=== PATIENT | male | born 1955 | race Caucasian/White ===

== ENCOUNTER 2018-07-29 06:05 | Inpatient (IN) | payer OTHER ==
[~2018-07-29 06:05] MED LIST: Acetaminophen 325 MG Tab PO SCH; Lactated Ringers 1,000 ML IV SCH; Lidocaine 1%/Sod Bicarbonate in NS 8.4% 1 ML Syringe IDERM PRN; Pregabalin 25 MG Cap PO SCH; Sodium Chloride 0.9% 10 ML Syringe FLUSH PRN; oxyCODONE ER 10 MG TAB.ER PO SCH
[2018-07-29] MEDS ORDERED: Ondansetron 4 MG/2 ML SDV IVPUSH PRN ×2 (06:23→08:21)
[2018-07-29] MEDS ORDERED: Morphine 2 MG/ML Syringe IVPUSH PRN (06:23)
[2018-07-29] MEDS ORDERED: Ketorolac 15 MG/ML SDV IVPUSH PRN (06:23)
[2018-07-29] MEDS ORDERED: Bisacodyl 5 MG Tab PO PRN (06:23)
[2018-07-29] MEDS ORDERED: Cyclobenzaprine 10 MG Tab PO PRN (06:23)
[2018-07-29] MEDS ORDERED: Naloxone 0.4 MG/ML SDV IVPUSH PRN (06:23)
[2018-07-29] MEDS ORDERED: Acetaminophen/oxyCODONE 325-5 MG Tab PO PRN (06:23)
[2018-07-29] MEDS ORDERED: Sennosides 8.6 MG Tab PO PRN (06:23)
[2018-07-29] MEDS ORDERED: Magnesium Hydroxide 400 MG/5 ML Susp 30 ML Cup PO PRN (06:23)
[2018-07-29] MEDS ORDERED: Bupivacaine 0.25% 30 ML SDV ONE (06:39)
[2018-07-29] MEDS ORDERED: ceFAZolin 1 GM Vial ONE ×2 (06:39→07:57)
[2018-07-29] MEDS ORDERED: Iodine/Sodium Iodide 2% Tincture 30 ML Bottle ONE (06:39)
[2018-07-29] MEDS ORDERED: Vancomycin 1 GM SDV ONE (06:39)
[2018-07-29] MEDS ORDERED: Propofol 200 MG/20 ML SDV ONE ×2 (06:47→08:38)
[2018-07-29] MEDS ORDERED: fentaNYL 100 MCG/2 ML SDV ONE (06:48)
[2018-07-29] MEDS ORDERED: Midazolam 1 MG/ML 2 ML SDV ONE (06:48)
[2018-07-29] MEDS ORDERED: Ketamine 500 mg/10 ML MDV ONE (06:48)
[2018-07-29] MEDS ORDERED: Morphine PF 10 MG/10 ML SDV ONE (06:50)
[2018-07-29] MEDS ORDERED: Bupivacaine 0.75% 30 ML SDV ONE (06:51)
--- NOTE | 2018-07-29 07:11 | PCM.PREANE ---
Preanesthetic Assessment - Anesthesia/Transfusion/Family Hx Anesthesia History: Prior Anesthesia Without Reaction Family History of Anesthesia Reaction: No Transfusion History: No Prior Transfusion(s) Type of Transfusion Reactions: Reports: Unknown Intubation History: Unknown - Review of Systems General: No Symptoms Pulmonary: No Symptoms, Other (Smoker 1 ppd) Cardiovascular: No Symptoms, Other (Hypertension) Gastrointestinal: No Symptoms Neurological: Difficulty Walking, Gait Disturbance, Other (Related to intense pain from hip. 9/10 rating this morning.) Other: Reports: Thyroid Problems - Physical Assessment NPO Status Date: 07/28/18 NPO Status Time: 22:30 Pulse: 59 O2 Sat by Pulse Oximetry: 96 Respiratory Rate: 16 Blood Pressure: 124/91 Height: 1.68 m Weight: 87 kg ASA Class: 2 Mental Status: Alert & Oriented x3 Airway Class: Mallampati = 2 Dentition: Reports: Normal Dentition Thyro-Mental Finger Breadths: 3 Mouth Opening Finger Breadths: 3 ROM/Head Extension: Full Lungs: Clear to Auscultation, Normal Respiratory Effort Cardiovascular: Regular Rate, Regular Rhythm - Lab Values: Laboratory Last Values MRSA (PCR) Negative 07/07/18 09:32 - Allergies Allergies/Adverse Reactions: Allergies Allergy/AdvReac Type Severity Reaction Status Date / Time No Known Allergies Allergy Verified 04/15/18 07:22 - Acknowledgements Anesthesia Type Planned: Spinal Pt an Appropriate Candidate for the Planned Anesthesia: Yes Alternatives and Risks of Anesthesia Discussed w Pt/Guardian: Yes Pt/Guardian Understands and Agrees with Anesthesia Plan: Yes PreAnesthesia Questionnaire HEENT History: Reports: None Cardiovascular History: Reports: High Cholesterol, Hypertension Other Cardiovascular History: Patient has known sinus arrythmia with PACs Respiratory History: Reports: None Gastrointestinal History: Reports: Diverticulosis Genitourinary History: Reports: None Musculoskeletal History: Reports: Fracture, Osteoarthritis Neurological History: Reports: Other (See Below) Other Neuro History: syncope Psychiatric History: Reports: None Endocrine/Metabolic History: Reports: Hypothyroidism Hematologic History: Reports: None Immunologic History: Reports: None Oncologic (Cancer) History: Reports: Other (See Below) Other Oncologic History: skin cancer of lip Dermatologic History: Reports: Other (See Below) 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 - Past Surgical History Other HEENT Surgeries/Procedures: blepharoplasty, bilat. GI Surgical History: Reports: Appendectomy, Colonoscopy Musculoskeletal Surgical History: Reports: Arthroscopic Procedure Other Musculoskeletal Surgeries/Procedures:: right knee arthroscopy and partial right knee replacement. right rotator cuff repair, left total shoulder, bilateral thumb repair, clavicle fracture. - SUBSTANCE USE Smoking Status *Q: Current Every Day Smoker Tobacco Use Within Last Twelve Months: Cigarettes Days Per Week of Alcohol Use: 2 Recreational Drug Use History: No - HOME MEDS Home Medications: Home Meds Amoxicillin [Amoxil] 500 mg PO ASDIRECTED 10/09/16 [History] Aspirin [Halfprin] 81 mg PO DAILY 10/09/16 [History] Levothyroxine 150 mcg PO ACBREAKFAST 10/09/16 [History] Naproxen Sodium [Aleve] 220 mg PO DAILY 10/09/16 [History] Renovo-3/DHA/Epa/Fish Oil [Renovo-3 Fish Oil 1,000 MG Sfgl] 2,000 mg PO DAILY [History] Pravastatin [Pravachol] 20 mg PO DAILY 10/09/16 [History] Ramipril [Altace] 5 mg PO DAILY 10/09/16 [History] amLODIPine [Norvasc] 5 mg PO DAILY 10/09/16 [History] - CURRENT (IN HOUSE) MEDS Current Meds: Current Medications Acetaminophen (Tylenol) 975 mg PO ONETIME [facility] Last Admin: 07/29/18 06:48 Dose: 975 mg Bisacodyl (Dulcolax) 5 mg PO DAILY PRN PRN Reason: Constipation Morphine Sulfate 8 mg/Epinephrine HCl 0.3 mg/Cefuroxime Sodium 750 mg/Ketorolac Tromethamine 30 mg/Sodium Chloride 27.9 ml 0 mg .XX ONETIME ONE Stop: 07/29/18 07:46 Cyclobenzaprine HCl (Flexeril) 10 mg PO TID PRN PRN Reason: Spasms Docusate Sodium (Colace) 100 mg PO BID [facility] Famotidine (Pepcid) 20 mg PO Q12H [place] Lactated Ringer's (Ringers, Lactated) 1,000 mls @ 125 mls/hr IV ASDIRECTED [facility] Last Admin: 07/29/18 06:30 Dose: 125 mls/hr Cefazolin Sodium/Dextrose 2 gm (/ Premix) 50 mls @ 100 mls/hr IV Q8H [facility] Stop: 07/29/18 22:59 Ketorolac Tromethamine (Toradol) 15 mg IVPUSH Q6H PRN PRN Reason: Pain Lidocaine/Sodium Bicarbonate (Buffered Lidocaine 1% In Ns 8.4%) 0.25 ml IDERM ONETIME PRN PRN Reason: Prior to IV Start Last Admin: 07/29/18 06:29 Dose: 0.25 ml Magnesium Hydroxide (Milk Of Magnesia) 30 ml PO BID PRN PRN Reason: Constipation Morphine Sulfate (Morphine) 2 mg IVPUSH Q2H PRN PRN Reason: Breakthrough Pain Naloxone HCl (Narcan) 0.1 mg IVPUSH Q5M PRN PRN Reason: Oversedation Ondansetron HCl (Zofran) 4 mg IVPUSH Q6H PRN PRN Reason: Nausea/Vomiting Oxycodone HCl (Oxycontin) 10 mg PO ONETIME [facility] Last Admin: 07/29/18 06:48 Dose: 10 mg Oxycodone/Acetaminophen (Percocet 325-5 Mg) 1 - 2 tab PO Q4H PRN PRN Reason: Pain Pregabalin (Lyrica) 50 mg PO ONETIME [facility] Last Admin: 07/29/18 06:48 Dose: 50 mg Rivaroxaban (Xarelto) 10 mg PO DAILY [facility] Senna (Senna) 8.6 mg PO BID PRN PRN Reason: Constipation Sodium Chloride (Saline Flush) 10 ml FLUSH ASDIRECTED PRN PRN Reason: Keep Vein Open Discontinued Medications Bupivacaine HCl (Marcaine 0.25%) Confirm Administered Dose 30 ml .ROUTE .STK- MED ONE Stop: 07/29/18 06:40 Bupivacaine HCl (Sensorcaine-Mpf 0.75%) Confirm Administered Dose 30 ml .ROUTE .STK-MED ONE Stop: 07/29/18 06:52 Cefazolin Sodium (Ancef) Confirm Administered Dose 2 gm .ROUTE .STK-MED ONE Stop: 07/29/18 06:40 Fentanyl (Sublimaze) Confirm Administered Dose 100 mcg .ROUTE .STK-MED ONE Stop: 07/29/18 06:49 Lidocaine HCl (Xylocaine-Mpf 1%) Confirm Administered Dose 5 mls @ as directed .ROUTE .STK-MED ONE Stop: 07/29/18 06:52 Iodine (Iodine 2% Mild Tincture) Confirm Administered Dose 30 ml .ROUTE .STK- MED ONE Stop: 07/29/18 06:40 Ketamine HCl (Ketalar) Confirm Administered Dose 500 mg .ROUTE .STK-MED ONE Stop: 07/29/18 06:49 Midazolam HCl (Versed 1 Mg/Ml) Confirm Administered Dose 2 mg .ROUTE .STK-MED ONE Stop: 07/29/18 06:49 Morphine Sulfate (Duramorph Pf) Confirm Administered Dose 10 mg .ROUTE .STK-MED ONE Stop: 07/29/18 06:51 Propofol (Diprivan 20 Ml) Confirm Administered Dose 600 mg .ROUTE .STK-MED ONE Stop: 07/29/18 06:48 Tranexamic Acid (Cyklokapron) Confirm Administered Dose 1,000 mg .ROUTE .STK- MED ONE Stop: 07/29/18 06:40 Vancomycin HCl (Vancomycin) Confirm Administered Dose 1 gm .ROUTE .STK-MED ONE Stop: 07/29/18 06:40
[2018-07-29] MEDS ORDERED: Morphine 8 MG, EPINEPHrine 0.3 MG, Cefuroxime 750 MG, Ketorolac 30 MG, Sodium Chloride ... ONE ×5 (07:45)
[2018-07-29] MEDS ORDERED: Ondansetron 4 MG/2 ML SDV ONE (07:51)
[2018-07-29] MEDS ORDERED: Metoclopramide 10 MG/2 ML SDV ONE (07:57)
[2018-07-29] MEDS ORDERED: Dexamethasone 4 MG/ML SDV ONE (08:01)
[2018-07-29] MEDS ORDERED: Ketorolac 30 MG/ML SDV ONE (08:11)
[2018-07-29] MEDS ORDERED: Lactated Ringers 2,000 ML ONE (08:11)
[2018-07-29] MEDS ORDERED: Albuterol 0.083% 2.5 MG/3 ML Neb Soln NEB PRN (08:19)
[2018-07-29] MEDS ORDERED: ePHEDrine 50 MG/ML SDV IVPUSH PRN (08:19)
[2018-07-29] MEDS ORDERED: diphenhydrAMINE 50 MG/ML SDV IVPUSH PRN (08:19)
--- NOTE | 2018-07-29 08:26 | PCM.CONS ---
H&P History of Present Illness - General Date of Service: 07/29/18 Admit Problem/Dx: Admission Diagnosis/Problem Admission Diagnosis/Problem Osteoarthritis of hip Source of Information: Patient, Old Records, Provider, RN, RN Notes Reviewed, Other (surgical notes ) - History of Present Illness Initial Comments - Free Text/Narative: Juan Hines is a 62 yo male patient of Dr. Hale who is post-operative day 0 of left ESTEFANIA. Hospital medicine was consulted for post-operative medical care. At this time he is resting comfortably in bed. Pain is controlled. He denies any chest pain, shortness of breath, palpitations, nausea, or vomiting. He carries a history of: HTN, HLD, hypothyroidism, sinus arrhythmia with PACs, diverticulosis, Osteoarthritis. He is a current daily smoker - nicotine patch ordered PRN. He is a full code. His primary care provider is Dr. Huston. Left Hip Pain Score (Numeric/FACES): 9 - Related Data Allergies/Adverse Reactions: Allergies Allergy/AdvReac Type Severity Reaction Status Date / Time No Known Allergies Allergy Verified 04/15/18 07:22 Home Medications: Home Meds Amoxicillin [Amoxil] 500 mg PO ASDIRECTED 10/09/16 [History] Aspirin [Halfprin] 81 mg PO DAILY 10/09/16 [History] Levothyroxine 150 mcg PO ACBREAKFAST 10/09/16 [History] Naproxen Sodium [Aleve] 220 mg PO DAILY 10/09/16 [History] Logan-3/DHA/Epa/Fish Oil [Logan-3 Fish Oil 1,000 MG Sfgl] 2,000 mg PO DAILY [History] Pravastatin [Pravachol] 20 mg PO DAILY 10/09/16 [History] Ramipril [Altace] 5 mg PO DAILY 10/09/16 [History] amLODIPine [Norvasc] 5 mg PO DAILY 10/09/16 [History] Past Medical History HEENT History: Reports: None Cardiovascular History: Reports: High Cholesterol, Hypertension Other Cardiovascular History: Patient has known sinus arrythmia with PACs Respiratory History: Reports: None Gastrointestinal History: Reports: Diverticulosis Genitourinary History: Reports: None Musculoskeletal History: Reports: Fracture, Osteoarthritis Neurological History: Reports: Other (See Below) Other Neuro History: syncope Psychiatric History: Reports: None Endocrine/Metabolic History: Reports: Hypothyroidism Hematologic History: Reports: None Immunologic History: Reports: None Oncologic (Cancer) History: Reports: Other (See Below) Other Oncologic History: skin cancer of lip Dermatologic History: Reports: Other (See Below) 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 - Past Surgical History Other HEENT Surgeries/Procedures: blepharoplasty, bilat. GI Surgical History: Reports: Appendectomy, Colonoscopy Musculoskeletal Surgical History: Reports: Arthroscopic Procedure Other Musculoskeletal Surgeries/Procedures:: right knee arthroscopy and partial right knee replacement. right rotator cuff repair, left total shoulder, bilateral thumb repair, clavicle fracture. Social & Family History - Family History Other GI Family History: Mother had colon cancer Oncologic: Reports: Colon Other Oncologic Family History: Mother had colon cancer - Tobacco Use Smoking Status *Q: Current Every Day Smoker Years of Tobacco use: 40 Packs/Tins Daily: 1 - Caffeine Use Caffeine Use: Reports: Coffee, Soda - Alcohol Use Days Per Week of Alcohol Use: 2 - Recreational Drug Use Recreational Drug Use: No H&P Review of Systems - Review of Systems: Review Of Systems: See Below General: Reports: No Symptoms HEENT: Reports: No Symptoms Pulmonary: Reports: No Symptoms Cardiovascular: Reports: No Symptoms Gastrointestinal: Reports: No Symptoms Genitourinary: Reports: No Symptoms Musculoskeletal: Reports: Leg Pain Skin: Reports: No Symptoms Psychiatric: Reports: No Symptoms Neurological: Reports: No Symptoms Hematologic/Lymphatic: Reports: No Symptoms Immunologic: Reports: No Symptoms Exam - Exam Exam: See Below - Vital Signs Vital Signs: Last Vital Signs Temp 98.2 F 07/29/18 06:10 Pulse 59 L 07/29/18 07:11 Resp 16 07/29/18 07:11 BP 124/91 H 07/29/18 07:11 Pulse Ox 96 07/29/18 07:11 Weight: 192 lb - Exam General: Alert, Oriented, Cooperative. No: Mild Distress HEENT: Conjunctiva Clear, EACs Clear, EOMI, Hearing Intact, Mucosa Moist & [place] , Nares Patent, Posterior Pharynx Clear, PERRLA Neck: Supple, Trachea Midline. No: JVD Lungs: Clear to Auscultation, Normal Respiratory Effort Cardiovascular: Irregular Rhythm (Hx/o sinus arrhythmia with PACs), Bradycardia (Also present on pre-operative) GI/Abdominal Exam: Normal Bowel Sounds, Soft, Non-Tender, No Distention (Male) Exam: Deferred Rectal (Males) Exam: Deferred Back Exam: Normal Inspection, Full Range of Motion Extremities: No Pedal Edema, Normal Capillary Refill, Leg Pain, Limited Range of Motion, Other (HITESH bandage in place on left leg. Bandage is dry and intact. Cooling pack in place ) Peripheral Pulses: 3+: Radial (L), Radial (R), Dorsalis Pedis (L), Dorsalis Pedis (R) Skin: Warm, Dry, Intact Neurological: Cranial Nerves Intact (grossly) Neuro Extensive - Mental Status: Alert, Oriented x3, Normal Mood/Affect, Normal Cognition Psychiatric: Alert, Normal Affect, Normal Mood - Patient Data Lab Results Last 24 hrs: Laboratory Results - last 24 hr 07/29/18 07/29/18 Range/Units 06:30 06:30 APTT 29 (24-31) SECONDS Blood Type O POSITIVE Gel Antibody Screen Negative Consult PN Assessment/Plan POD#: 0 Procedures: Procedures COLONOSCOPY AND BIOPSY (10/10/16) CT HEAD/BRAIN W/O & W/DYE (02/24/14) DXA BONE DENSITY AXIAL (07/09/18) ECG MONIT/REPRT UP TO 48 HRS (02/22/14) MRI LUMBAR SPINE W/O DYE (04/15/18) TISSUE EXAM BY PATHOLOGIST (10/10/16) (1) S/P total hip arthroplasty SNOMED Code(s): 355728260516, 406006042745 Code(s): Z96.649 - PRESENCE OF UNSPECIFIED ARTIFICIAL HIP JOINT Priority: High Current Visit: Yes Qualifiers: Laterality: left Qualified Code(s): Z96.642 - Presence of left artificial hip joint (2) Osteoarthritis SNOMED Code(s): 799732344 Code(s): M19.90 - UNSPECIFIED OSTEOARTHRITIS, UNSPECIFIED SITE Priority: High Current Visit: Yes Qualifiers: Osteoarthritis location: hip Osteoarthritis type: primary Laterality: left Qualified Code(s): M16.12 - Unilateral primary osteoarthritis, left hip (3) HTN (hypertension) SNOMED Code(s): 08213004 Code(s): I10 - ESSENTIAL (PRIMARY) HYPERTENSION Priority: Medium Current Visit: No Qualifiers: Hypertension type: unspecified Qualified Code(s): I10 - Essential (primary ) hypertension (4) HLD (hyperlipidemia) SNOMED Code(s): 85941240 Code(s): E78.5 - HYPERLIPIDEMIA, UNSPECIFIED Priority: Low Current Visit : No Qualifiers: Hyperlipidemia type: unspecified Qualified Code(s): E78.5 - Hyperlipidemia , unspecified (5) Tobacco use disorder SNOMED Code(s): 105996816 Code(s): F17.200 - NICOTINE DEPENDENCE, UNSPECIFIED, UNCOMPLICATED Priority : Medium Current Visit: Yes (6) Hypothyroidism SNOMED Code(s): 64757561 Code(s): E03.9 - HYPOTHYROIDISM, UNSPECIFIED Priority: Medium Current Visit: No Qualifiers: Hypothyroidism type: unspecified Qualified Code(s): E03.9 - Hypothyroidism , unspecified (7) Diverticulosis SNOMED Code(s): 664190859 Code(s): K57.90 - DVRTCLOS OF INTEST, PART UNSP, W/O PERF OR ABSCESS W/O BLEED Priority: Low Current Visit: No Qualifiers: Diverticulosis site: unspecified location Diverticulosis bleeding: diverticulosis without bleeding Qualified Code(s): K57.90 - Diverticulosis of intestine, part unspecified, without perforation or abscess without bleeding Problem List Initiated/Reviewed/Updated: Yes Plan: I/P: Acute: S/P Left total hip arthroplasty - post-operative day 0 -DVT prophylaxis and pain management per primary care team -PT/OT -IS/RT -Monitor oxygen saturation -Titrate oxygen as needed -Vital signs stable -Monitor labs -Pre-operative Hgb was 16.4 -Pre-operative GFR was 86 Osteoarthritis of left knee -Pain management per primary care team Chronic: HTN HLD Hypothyroid Known sinus arrhythmia with PACs - will order telemtry Diverticulosis Tobacco use disorder - nicotine patch PRN Plan: CM for discharge planning GI prophylaxis Home medications as indicated Other orders as listed above Routine AM labs He is a full code. His PCP is Dr. Huston Thank you for allowing us to participate in the care of this patient!! Requesting Provider: Dr. Hale Date Consult Requested: 07/29/18 Reason for Consult: Post-operative medical care Patient History Reviewed: Yes Admission H&P Reviewed: Yes Time Spent (in minutes): 40
[2018-07-29] MEDS ORDERED: Amoxicillin 500 MG Cap PO SCH (09:15)
[2018-07-29] MEDS ORDERED: fentaNYL 100 MCG/2 ML SDV IVPUSH PRN (09:21)
[2018-07-29] MEDS ORDERED: HYDROmorphone 0.5 MG/0.5 ML Syringe IVPUSH PRN (09:21)
--- NOTE | 2018-07-29 09:21 | PCM.POSTAN ---
POST ANESTHESIA ASSESSMENT - MENTAL STATUS Mental Status: Alert, Oriented - VITAL SIGNS Pulse Rate: 86 SaO2: 93 Resp Rate: 9 Blood Pressure: 104/92 Temperature: 36.3 C - RESPIRATORY Respiratory Status: Respiratory Rate WNL, Airway Patent, O2 Saturation Stable, Supplemental Oxygen - CARDIOVASCULAR CV Status: Pulse Rate WNL, Blood Pressure Stable - GASTROINTESTINAL GI Status: No Symptoms - PAIN Pain Score: 0 - POST OP HYDRATION Hydration Status: Adequate & Stable
--- NOTE | 2018-07-29 10:26 | CR ---
Pelvis and left hip: AP view of the pelvis was obtained as well as lateral view of the left hip. Comparison: Prior AP pelvis study of 12/23/12. Left hip prosthesis is seen. Components are aligned. Joint space with right hip is preserved. Sacroiliac joints are normal. No fracture or other abnormality is seen. Incidental vascular calcification is noted. Impression: 1. Satisfactory appearance of recently placed left hip prosthesis. Diagnostic code #2
[2018-07-29] MEDS ORDERED: Nicotine 21 MG/24 Hr Patch TRDERM PRN (11:00)
[2018-07-29] MEDS: ceFAZolin 2 GM in Premix Bag 1 BAG IV SCH (16:30)
[2018-07-29] MEDS: Famotidine 20 MG Tab PO SCH (20:47)
[2018-07-29] MEDS: Docusate Sodium 100 MG Cap PO SCH (20:47)
[2018-07-30] MEDS: ceFAZolin 2 GM in Premix Bag 1 BAG IV SCH ×2 (00:23→08:57)
[2018-07-30 04:53] VITALS: BP 121/81
[2018-07-30] MEDS ORDERED: Levothyroxine 150 MCG Tab PO SCH (06:00)
--- NOTE | 2018-07-30 06:53 | PCM.CONSN ---
- General Info Date of Service: 07/30/18 Admission Dx/Problem (Free Text): Admission Diagnosis/Problem Admission Diagnosis/Problem Osteoarthritis of hip Subjective Update: In to see Juan. He is sitting in the chair. He has no concerns or complaints. No nursing concerns. He reports he slept ok. Functional Status: Reports: Pain Controlled, Tolerating Diet, Ambulating, Urinating, Incentive Spirometry. Denies: New Symptoms - Review of Systems General: Reports: No Symptoms. Denies: Fever, Weakness, Fatigue HEENT: Reports: No Symptoms. Denies: Sore Throat Pulmonary: Reports: No Symptoms. Denies: Shortness of Breath, Cough, Wheezing Cardiovascular: Reports: No Symptoms. Denies: Chest Pain, Palpitations, Lightheadedness Gastrointestinal: Reports: No Symptoms. Denies: Abdominal Pain, Constipation, Diarrhea, Nausea, Vomiting Genitourinary: Reports: No Symptoms Musculoskeletal: Reports: Leg Pain Skin: Reports: No Symptoms Neurological: Reports: No Symptoms. Denies: Confusion Psychiatric: Reports: No Symptoms - Patient Data Vitals - Most Recent: Last Vital Signs Temp 97.2 F 07/30/18 03:40 Pulse 66 07/30/18 03:40 Resp 18 07/30/18 05:00 BP 121/81 07/30/18 03:40 Pulse Ox 94 L 07/30/18 00:01 Weight - Most Recent: 205 lb 4.8 oz I&O - Last 24 Hours: Intake & Output 07/29/18 07/29/18 07/30/18 14:59 22:59 06:59 Intake Total 420 2070 3200 Output Total 075 152 2747 Balance 165 1470 1900 Lab Results Last 24 Hours: Laboratory Results - last 24 hr 07/29/18 07/29/18 Range/Units 06:30 06:30 APTT 29 (24-31) SECONDS Blood Type O POSITIVE Gel Antibody Screen Negative Med Orders - Current: Current Medications Amlodipine Besylate (Norvasc) 5 mg PO DAILY [facility] Aspirin (Halfprin) 81 mg PO DAILY [facility] Bisacodyl (Dulcolax) 5 mg PO DAILY PRN PRN Reason: Constipation Cyclobenzaprine HCl (Flexeril) 10 mg PO TID PRN PRN Reason: Spasms Docusate Sodium (Colace) 100 mg PO BID [facility] Last Admin: 07/29/18 20:47 Dose: 100 mg Famotidine (Pepcid) 20 mg PO Q12H [facility] Last Admin: 07/29/18 20:47 Dose: 20 mg Cefazolin Sodium/Dextrose 2 gm (/ Premix) 50 mls @ 100 mls/hr IV Q8H [facility] Stop: 07/30/18 08:29 Last Admin: 07/30/18 00:23 Dose: 100 mls/hr Ketorolac Tromethamine (Toradol) 15 mg IVPUSH Q6H PRN PRN Reason: Pain Last Admin: 07/29/18 17:39 Dose: 15 mg Levothyroxine Sodium (Levothyroxine) 150 mcg PO ACBREAKFAST [facility] Last Admin: 07/30/18 06:15 Dose: 150 mcg Lisinopril (Prinivil) 10 mg PO DAILY [facility] Magnesium Hydroxide (Milk Of Magnesia) 30 ml PO BID PRN PRN Reason: Constipation Miscellaneous Information (Remove Patch) 0 ea TRDERM Q24H [facility] Morphine Sulfate (Morphine) 2 mg IVPUSH Q2H PRN PRN Reason: Breakthrough Pain Naloxone HCl (Narcan) 0.1 mg IVPUSH Q5M PRN PRN Reason: Oversedation Nicotine (Habitrol) 21 mg TRDERM DAILY PRN PRN Reason: Tobacco use Ondansetron HCl (Zofran) 4 mg IVPUSH Q6H PRN PRN Reason: Nausea/Vomiting Oxycodone/Acetaminophen (Percocet 325-5 Mg) 1 - 2 tab PO Q4H PRN PRN Reason: Pain Last Admin: 07/30/18 06:15 Dose: 1 tab Pregabalin (Lyrica) 50 mg PO ONETIME [facility] Last Admin: 07/29/18 06:48 Dose: 50 mg Rivaroxaban (Xarelto) 10 mg PO DAILY [facility] Senna (Senna) 8.6 mg PO BID PRN PRN Reason: Constipation Simvastatin (Zocor) 10 mg PO DAILY [facility] Sodium Chloride (Saline Flush) 10 ml FLUSH ASDIRECTED PRN PRN Reason: Keep Vein Open Discontinued Medications Acetaminophen (Tylenol) 975 mg PO ONETIME [facility] Last Admin: 07/29/18 06:48 Dose: 975 mg Albuterol (Proventil Neb Soln) 2.5 mg NEB ONETIME PRN PRN Reason: Shortness of Breath Stop: 07/29/18 12:00 Amoxicillin (Amoxil) 500 mg PO ASDIRECTED [facility] Bupivacaine HCl (Marcaine 0.25%) Confirm Administered Dose 30 ml .ROUTE .STK- MED ONE Stop: 07/29/18 06:40 Last Admin: 07/29/18 08:39 Dose: 30 ml Bupivacaine HCl (Sensorcaine-Mpf 0.75%) Confirm Administered Dose 30 ml .ROUTE .STK-MED ONE Stop: 07/29/18 06:52 Cefazolin Sodium (Ancef) Confirm Administered Dose 2 gm .ROUTE .STK-MED ONE Stop: 07/29/18 06:40 Last Admin: 07/29/18 08:38 Dose: 2 gm Cefazolin Sodium (Ancef) Confirm Administered Dose 2 gm .ROUTE .STK-MED ONE Stop: 07/29/18 07:58 Morphine Sulfate 8 mg/Epinephrine HCl 0.3 mg/Cefuroxime Sodium 750 mg/Ketorolac Tromethamine 30 mg/Sodium Chloride 27.9 ml 0 mg .XX ONETIME ONE Stop: 07/29/18 07:46 Last Admin: 07/29/18 08:39 Dose: 788.3 mg Dexamethasone (Dexamethasone) Confirm Administered Dose 8 mg .ROUTE .STK-MED ONE Stop: 07/29/18 08:02 Diphenhydramine HCl (Benadryl) 25 mg IVPUSH Q6H PRN PRN Reason: Pruritis Stop: 07/29/18 12:00 Ephedrine Sulfate (Ephedrine Sulfate) 5 mg IVPUSH ASDIRECTED PRN PRN Reason: Hypotension Stop: 07/29/18 12:00 Fentanyl (Sublimaze) Confirm Administered Dose 100 mcg .ROUTE .STK-MED ONE Stop: 07/29/18 06:49 Fentanyl (Sublimaze) 50 mcg IVPUSH Q5M PRN PRN Reason: Pain Hydromorphone HCl (Dilaudid) 0.5 mg IVPUSH ASDIRECTED PRN PRN Reason: Severe Pain Stop: 07/29/18 12:00 Lactated Ringer's (Ringers, Lactated) 1,000 mls @ 125 mls/hr IV ASDIRECTED [facility] Last Admin: 07/29/18 06:30 Dose: 125 mls/hr Lidocaine HCl (Xylocaine-Mpf 1%) Confirm Administered Dose 5 mls @ as directed .ROUTE .STK-MED ONE Stop: 07/29/18 06:52 Lactated Ringer's (Ringers, Lactated) Confirm Administered Dose 2,000 mls @ as directed .ROUTE .STK-MED ONE Stop: 07/29/18 08:12 Iodine (Iodine 2% Mild Tincture) Confirm Administered Dose 30 ml .ROUTE .STK- MED ONE Stop: 07/29/18 06:40 Last Admin: 07/29/18 08:36 Dose: 18 ml Ketamine HCl (Ketalar) Confirm Administered Dose 500 mg .ROUTE .STK-MED ONE Stop: 07/29/18 06:49 Ketorolac Tromethamine (Toradol) Confirm Administered Dose 30 mg .ROUTE .STK- MED ONE Stop: 07/29/18 08:12 Lidocaine/Sodium Bicarbonate (Buffered Lidocaine 1% In Ns 8.4%) 0.25 ml IDERM ONETIME PRN PRN Reason: Prior to IV Start Last Admin: 07/29/18 06:29 Dose: 0.25 ml Metoclopramide HCl (Reglan) Confirm Administered Dose 10 mg .ROUTE .STK-MED ONE Stop: 07/29/18 07:58 Midazolam HCl (Versed 1 Mg/Ml) Confirm Administered Dose 2 mg .ROUTE .ST-MED ONE Stop: 07/29/18 06:49 Morphine Sulfate (Duramorph Pf) Confirm Administered Dose 10 mg .ROUTE .STK-MED ONE Stop: 07/29/18 06:51 Ondansetron HCl (Zofran) Confirm Administered Dose 4 mg .ROUTE .STK-MED ONE Stop: 07/29/18 07:52 Ondansetron HCl (Zofran) 4 mg IVPUSH ONETIME PRN PRN Reason: Nausea/Vomiting Stop: 07/29/18 12:00 Oxycodone HCl (Oxycontin) 10 mg PO ONETIME [facility] Last Admin: 07/29/18 06:48 Dose: 10 mg Propofol (Diprivan 20 Ml) Confirm Administered Dose 600 mg .ROUTE .STK-MED ONE Stop: 07/29/18 06:48 Propofol (Diprivan 20 Ml) Confirm Administered Dose 200 mg .ROUTE .STK-MED ONE Stop: 07/29/18 08:39 Tranexamic Acid (Cyklokapron) Confirm Administered Dose 1,000 mg .ROUTE .STK- MED ONE Stop: 07/29/18 06:40 Last Admin: 07/29/18 08:41 Dose: 1,000 mg Vancomycin HCl (Vancomycin) Confirm Administered Dose 1 gm .ROUTE .STK-MED ONE Stop: 07/29/18 06:40 Last Admin: 07/29/18 08:41 Dose: 1 gm - Exam Quality Assessment: DVT Prophylaxis General: Alert, Oriented, Cooperative, No Acute Distress HEENT: Pupils Equal, Pupils Reactive, EOMI, Mucous Membr. Moist/[place] Neck: Supple, Trachea Midline, No JVD Lungs: Clear to Auscultation, Normal Respiratory Effort Cardiovascular: Regular Rate, Irregular Rhythm GI/Abdominal Exam: Normal Bowel Sounds, Soft, Non-Tender, No Distention (Male) Exam: Deferred Back Exam: Normal Inspection, Full Range of Motion Extremities: No Pedal Edema, Normal Capillary Refill, Leg Pain, Limited Range of Motion, Other (Bandage in place on left leg. Cooling pack in place ) Peripheral Pulses: 2+: Radial (L), Radial (R), Dorsalis Pedis (L), Dorsalis Pedis (R) Skin: Warm, Dry, Intact Wound/Incisions: Dressing Dry and Intact, No Drainage Neurological: No New Focal Deficit Psy/Mental Status: Alert, Normal Affect, Normal Mood Consult PN Assessment/Plan POD#: 1 Procedures: Procedures COLONOSCOPY AND BIOPSY (10/10/16) CT HEAD/BRAIN W/O & W/DYE (02/24/14) DXA BONE DENSITY AXIAL (07/09/18) ECG MONIT/REPRT UP TO 48 HRS (02/22/14) MRI LUMBAR SPINE W/O DYE (04/15/18) TISSUE EXAM BY PATHOLOGIST (10/10/16) (1) S/P total hip arthroplasty SNOMED Code(s): 950440784779, 627982734919 Code(s): Z96.649 - PRESENCE OF UNSPECIFIED ARTIFICIAL HIP JOINT Priority: High Current Visit: Yes Qualifiers: Laterality: left Qualified Code(s): Z96.642 - Presence of left artificial hip joint (2) Osteoarthritis SNOMED Code(s): 013914440 Code(s): M19.90 - UNSPECIFIED OSTEOARTHRITIS, UNSPECIFIED SITE Priority: High Current Visit: Yes Qualifiers: Osteoarthritis location: hip Osteoarthritis type: primary Laterality: left Qualified Code(s): M16.12 - Unilateral primary osteoarthritis, left hip (3) HTN (hypertension) SNOMED Code(s): 72872380 Code(s): I10 - ESSENTIAL (PRIMARY) HYPERTENSION Priority: Medium Current Visit: No Qualifiers: Hypertension type: unspecified Qualified Code(s): I10 - Essential (primary ) hypertension (4) HLD (hyperlipidemia) SNOMED Code(s): 91590209 Code(s): E78.5 - HYPERLIPIDEMIA, UNSPECIFIED Priority: Low Current Visit : No Qualifiers: Hyperlipidemia type: unspecified Qualified Code(s): E78.5 - Hyperlipidemia , unspecified (5) Tobacco use disorder SNOMED Code(s): 717146886 Code(s): F17.200 - NICOTINE DEPENDENCE, UNSPECIFIED, UNCOMPLICATED Priority : Medium Current Visit: Yes (6) Hypothyroidism SNOMED Code(s): 97532113 Code(s): E03.9 - HYPOTHYROIDISM, UNSPECIFIED Priority: Medium Current Visit: No Qualifiers: Hypothyroidism type: unspecified Qualified Code(s): E03.9 - Hypothyroidism , unspecified (7) Diverticulosis SNOMED Code(s): 205565165 Code(s): K57.90 - DVRTCLOS OF INTEST, PART UNSP, W/O PERF OR ABSCESS W/O BLEED Priority: Low Current Visit: No Qualifiers: Diverticulosis site: unspecified location Diverticulosis bleeding: diverticulosis without bleeding Qualified Code(s): K57.90 - Diverticulosis of intestine, part unspecified, without perforation or abscess without bleeding Problem List Initiated/Reviewed/Updated: Yes My Orders Last 24 Hours: My Active Orders 07/29/18 10:23 Patient Status [ADT] Routine 07/29/18 11:00 Nicotine [Habitrol] 21 mg TRDERM DAILY PRN 07/30/18 11:00 Remove Patch 0 ea TRDERM Q24H Plan: I/P: Acute: S/P Left total hip arthroplasty - post-operative day 1 -DVT prophylaxis and pain management per primary care team -PT/OT -IS/RT -Monitor oxygen saturation -Titrate oxygen as needed -Vital signs stable -Monitor labs -Pre-operative Hgb was 16.4, Now 14.2 -Pre-operative GFR was 86, Now >60 Osteoarthritis of left knee -Pain management per primary care team Chronic: HTN HLD Hypothyroid Known sinus arrhythmia with PACs - will order telemtry Diverticulosis Tobacco use disorder - nicotine patch PRN Plan: CM for discharge planning GI prophylaxis Home medications as indicated Other orders as listed above Routine AM labs He is a full code. His PCP is Dr. Huston From a hospitalist standpoint Juan is doing very well. Pain is controlled. He has been working with therapies and doing well. He did initially have some retention and was straight cath'ed however he has urinated now on his own. He is off oxygen. Labs and vital signs look good. He is cleared for discharge pending primary care team and OT/PT approval. Thank you for allowing us to participate in the care of this patient!!
--- NOTE | 2018-07-30 07:23 | PCM48HPAN ---
Post Anesthesia Note - EVALUATION WITHIN 48HRS OF ANESTHETIC Vital Signs in Normal Range: Yes Patient Participated in Evaluation: Yes Respiratory Function Stable: Yes Airway Patent: Yes Cardiovascular Function Stable: Yes Hydration Status Stable: Yes Pain Control Satisfactory: Yes Nausea and Vomiting Control Satisfactory: Yes Mental Status Recovered: Yes (No complaints- very pleased. only minimal pain today) Pulse Rate: 66 Resp Rate: 18 Temperature: 97.2 F Blood Pressure: 121/81
--- NOTE | 2018-07-30 07:44 | PCM.SURGPN ---
- General Info Date of Service: 07/30/18 POD#: 1 Functional Status: Reports: Pain Controlled, Tolerating Diet, Ambulating, Urinating, Incentive Spirometry, Other (The pt states he is doing very well and has no pain.) - Patient Data Vitals - Most Recent: Last Vital Signs Temp 97.2 F 07/30/18 07:23 Pulse 66 07/30/18 07:23 Resp 18 07/30/18 07:23 BP 121/81 07/30/18 07:23 Pulse Ox 96 07/30/18 06:00 Weight - Most Recent: 205 lb 4.8 oz I&O - Last 24 Hours: Intake & Output 07/29/18 07/30/18 07/30/18 22:59 06:59 14:59 Intake Total 2070 3200 Output Total 600 1300 Balance 1470 1900 Lab Results Last 24 Hrs: Laboratory Results - last 24 hr 07/30/18 07/30/18 Range/Units 06:44 06:44 WBC 11.52 H (4.23-9.07) K/mm3 RBC 4.35 L (4.63-6.08) M/mm3 Hgb 14.2 (13.7-17.5) gm/L Hct 43.4 (40.1-51.0) % MCV 99.8 H (79.0-92.2) fl MCH 32.6 H (25.7-32.2) pg MCHC 32.7 (32.2-35.5) g/dl RDW Std Deviation 52.2 H (35.1-43.9) fL Plt Count 205 (163-337) K/mm3 MPV 9.4 (9.4-12.3) fl Sodium 136 (136-145) mEq/L Potassium 4.1 (3.5-5.1) mEq/L Chloride 101 (98-107) mEq/L Carbon Dioxide 28 (21-32) mEq/L Anion Gap 11.1 (5-15) BUN 17 (7-18) mg/dL Creatinine 1.1 (0.7-1.3) mg/dL Est Cr Clr Drug Dosing 62.83 mL/min Estimated GFR (MDRD) > 60 (>60) mL/min BUN/Creatinine Ratio 15.5 (14-18) Glucose 149 H (80-115) mg/dL Calcium 8.8 (8.5-10.1) mg/dL Total Bilirubin 0.5 (0.2-1.0) mg/dL AST 44 H (15-37) U/L ALT 37 (16-63) U/L Alkaline Phosphatase 76 (46-116) U/L Total Protein 6.8 (6.4-8.2) g/dl Albumin 3.2 L (3.4-5.0) g/dl Globulin 3.6 gm/dL Albumin/Globulin Ratio 0.9 L (1-2) Med Orders - Current: Current Medications Amlodipine Besylate (Norvasc) 5 mg PO DAILY [facility] Aspirin (Halfprin) 81 mg PO DAILY [facility] Bisacodyl (Dulcolax) 5 mg PO DAILY PRN PRN Reason: Constipation Cyclobenzaprine HCl (Flexeril) 10 mg PO TID PRN PRN Reason: Spasms Docusate Sodium (Colace) 100 mg PO BID [facility] Last Admin: 07/29/18 20:47 Dose: 100 mg Famotidine (Pepcid) 20 mg PO Q12H [facility] Last Admin: 07/29/18 20:47 Dose: 20 mg Cefazolin Sodium/Dextrose 2 gm (/ Premix) 50 mls @ 100 mls/hr IV Q8H [facility] Stop: 07/30/18 08:29 Last Admin: 07/30/18 00:23 Dose: 100 mls/hr Ketorolac Tromethamine (Toradol) 15 mg IVPUSH Q6H PRN PRN Reason: Pain Last Admin: 07/29/18 17:39 Dose: 15 mg Levothyroxine Sodium (Levothyroxine) 150 mcg PO ACBREAKFAST [facility] Last Admin: 07/30/18 06:15 Dose: 150 mcg Lisinopril (Prinivil) 10 mg PO DAILY [facility] Magnesium Hydroxide (Milk Of Magnesia) 30 ml PO BID PRN PRN Reason: Constipation Miscellaneous Information (Remove Patch) 0 ea TRDERM Q24H [facility] Morphine Sulfate (Morphine) 2 mg IVPUSH Q2H PRN PRN Reason: Breakthrough Pain Naloxone HCl (Narcan) 0.1 mg IVPUSH Q5M PRN PRN Reason: Oversedation Nicotine (Habitrol) 21 mg TRDERM DAILY PRN PRN Reason: Tobacco use Ondansetron HCl (Zofran) 4 mg IVPUSH Q6H PRN PRN Reason: Nausea/Vomiting Oxycodone/Acetaminophen (Percocet 325-5 Mg) 1 - 2 tab PO Q4H PRN PRN Reason: Pain Last Admin: 07/30/18 06:15 Dose: 1 tab Pregabalin (Lyrica) 50 mg PO ONETIME [facility] Last Admin: 07/29/18 06:48 Dose: 50 mg Rivaroxaban (Xarelto) 10 mg PO DAILY [facility] Senna (Senna) 8.6 mg PO BID PRN PRN Reason: Constipation Simvastatin (Zocor) 10 mg PO DAILY [facility] Sodium Chloride (Saline Flush) 10 ml FLUSH ASDIRECTED PRN PRN Reason: Keep Vein Open Discontinued Medications Acetaminophen (Tylenol) 975 mg PO ONETIME [facility] Last Admin: 07/29/18 06:48 Dose: 975 mg Albuterol (Proventil Neb Soln) 2.5 mg NEB ONETIME PRN PRN Reason: Shortness of Breath Stop: 07/29/18 12:00 Amoxicillin (Amoxil) 500 mg PO ASDIRECTED [facility] Bupivacaine HCl (Marcaine 0.25%) Confirm Administered Dose 30 ml .ROUTE .STK- MED ONE Stop: 07/29/18 06:40 Last Admin: 07/29/18 08:39 Dose: 30 ml Bupivacaine HCl (Sensorcaine-Mpf 0.75%) Confirm Administered Dose 30 ml .ROUTE .STK-MED ONE Stop: 07/29/18 06:52 Cefazolin Sodium (Ancef) Confirm Administered Dose 2 gm .ROUTE .STK-MED ONE Stop: 07/29/18 06:40 Last Admin: 07/29/18 08:38 Dose: 2 gm Cefazolin Sodium (Ancef) Confirm Administered Dose 2 gm .ROUTE .STK-MED ONE Stop: 07/29/18 07:58 Morphine Sulfate 8 mg/Epinephrine HCl 0.3 mg/Cefuroxime Sodium 750 mg/Ketorolac Tromethamine 30 mg/Sodium Chloride 27.9 ml 0 mg .XX ONETIME ONE Stop: 07/29/18 07:46 Last Admin: 07/29/18 08:39 Dose: 788.3 mg Dexamethasone (Dexamethasone) Confirm Administered Dose 8 mg .ROUTE .STK-MED ONE Stop: 07/29/18 08:02 Diphenhydramine HCl (Benadryl) 25 mg IVPUSH Q6H PRN PRN Reason: Pruritis Stop: 07/29/18 12:00 Ephedrine Sulfate (Ephedrine Sulfate) 5 mg IVPUSH ASDIRECTED PRN PRN Reason: Hypotension Stop: 07/29/18 12:00 Fentanyl (Sublimaze) Confirm Administered Dose 100 mcg .ROUTE .STK-MED ONE Stop: 07/29/18 06:49 Fentanyl (Sublimaze) 50 mcg IVPUSH Q5M PRN PRN Reason: Pain Hydromorphone HCl (Dilaudid) 0.5 mg IVPUSH ASDIRECTED PRN PRN Reason: Severe Pain Stop: 07/29/18 12:00 Lactated Ringer's (Ringers, Lactated) 1,000 mls @ 125 mls/hr IV ASDIRECTED [facility] Last Admin: 07/29/18 06:30 Dose: 125 mls/hr Lidocaine HCl (Xylocaine-Mpf 1%) Confirm Administered Dose 5 mls @ as directed .ROUTE .STK-MED ONE Stop: 07/29/18 06:52 Lactated Ringer's (Ringers, Lactated) Confirm Administered Dose 2,000 mls @ as directed .ROUTE .STK-MED ONE Stop: 07/29/18 08:12 Iodine (Iodine 2% Mild Tincture) Confirm Administered Dose 30 ml .ROUTE .STK- MED ONE Stop: 07/29/18 06:40 Last Admin: 07/29/18 08:36 Dose: 18 ml Ketamine HCl (Ketalar) Confirm Administered Dose 500 mg .ROUTE .STK-MED ONE Stop: 07/29/18 06:49 Ketorolac Tromethamine (Toradol) Confirm Administered Dose 30 mg .ROUTE .STK- MED ONE Stop: 07/29/18 08:12 Lidocaine/Sodium Bicarbonate (Buffered Lidocaine 1% In Ns 8.4%) 0.25 ml IDERM ONETIME PRN PRN Reason: Prior to IV Start Last Admin: 07/29/18 06:29 Dose: 0.25 ml Metoclopramide HCl (Reglan) Confirm Administered Dose 10 mg .ROUTE .STK-MED ONE Stop: 07/29/18 07:58 Midazolam HCl (Versed 1 Mg/Ml) Confirm Administered Dose 2 mg .ROUTE .STK-MED ONE Stop: 07/29/18 06:49 Morphine Sulfate (Duramorph Pf) Confirm Administered Dose 10 mg .ROUTE .STK-MED ONE Stop: 07/29/18 06:51 Ondansetron HCl (Zofran) Confirm Administered Dose 4 mg .ROUTE .STK-MED ONE Stop: 07/29/18 07:52 Ondansetron HCl (Zofran) 4 mg IVPUSH ONETIME PRN PRN Reason: Nausea/Vomiting Stop: 07/29/18 12:00 Oxycodone HCl (Oxycontin) 10 mg PO ONETIME [facility] Last Admin: 07/29/18 06:48 Dose: 10 mg Propofol (Diprivan 20 Ml) Confirm Administered Dose 600 mg .ROUTE .STK-MED ONE Stop: 07/29/18 06:48 Propofol (Diprivan 20 Ml) Confirm Administered Dose 200 mg .ROUTE .STK-MED ONE Stop: 07/29/18 08:39 Tranexamic Acid (Cyklokapron) Confirm Administered Dose 1,000 mg .ROUTE .STK- MED ONE Stop: 07/29/18 06:40 Last Admin: 07/29/18 08:41 Dose: 1,000 mg Vancomycin HCl (Vancomycin) Confirm Administered Dose 1 gm .ROUTE .STK-MED ONE Stop: 07/29/18 06:40 Last Admin: 07/29/18 08:41 Dose: 1 gm - Exam Wound/Incisions: Dressing Dry and Intact General: Alert, Cooperative, No Acute Distress Lungs: Normal Respiratory Effort Extremities: Other (NVS intact for BLE. Radha's negative BLE. Left thigh soft and nontender.) - Problem List Review Problem List Initiated/Reviewed/Updated: Yes - My Orders Last 24 Hours: Active Orders 24 hr Category Date Time Status Patient Status [ADT] Routine ADT 07/29/18 10:23 Active Bladder Scan [RC] ASDIRECTED Care 07/29/18 23:15 Active Cooling Warming Measures [RC] ASDIRECTED Care 07/29/18 08:19 Inactive Notify Provider [RC] ASDIRECTED Care 07/29/18 08:19 Active Oxygen Therapy [RC] ASDIRECTED Care 07/29/18 08:18 Inactive Pulse Oximetry [RC] ASDIRECTED Care 07/29/18 08:19 Active RT Aerosol Therapy [RC] ASDIRECTED Care 07/29/18 08:20 Active Ready for Discharge [RC] PER UNIT ROUTINE Care 07/30/18 07:34 Active Urinary Catheter Assessment [RC] .PRN Care 07/29/18 08:15 Active Vital Signs [RC] Q1HR Care 07/29/18 08:18 Active Regular Diet [DIET] Diet 07/29/18 Lunch Active Aspirin [Halfprin] Med 07/30/18 09:00 Active 81 mg PO DAILY Docusate Sodium [Colace] Med 07/29/18 21:00 Active 100 mg PO BID Famotidine [Pepcid] Med 07/29/18 21:00 Active 20 mg PO Q12H Levothyroxine Med 07/30/18 06:00 Active 150 mcg PO ACBREAKFAST Lisinopril [Prinivil] Med 07/30/18 09:00 Active 10 mg PO DAILY Nicotine [Habitrol] Med 07/29/18 11:00 Active 21 mg TRDERM DAILY PRN Remove Patch Med 07/30/18 11:00 Active 0 ea TRDERM Q24H Rivaroxaban [Xarelto] Med 07/30/18 09:00 Active 10 mg PO DAILY Simvastatin [Zocor] Med 07/30/18 09:00 Active 10 mg PO DAILY amLODIPine [Norvasc] Med 07/30/18 09:00 Active 5 mg PO DAILY ceFAZolin [Ancef] 2 gm Med 07/29/18 16:00 Active Premix Bag 1 bag IV Q8H Pulse Oximetry Continuous Monitoring [OM.PC] Routine Oth 07/29/18 08:19 Active Medication Orders Amlodipine Besylate (Norvasc) 5 mg PO DAILY [facility] Aspirin (Halfprin) 81 mg PO DAILY [facility] Bisacodyl (Dulcolax) 5 mg PO DAILY PRN PRN Reason: Constipation Cyclobenzaprine HCl (Flexeril) 10 mg PO TID PRN PRN Reason: Spasms Docusate Sodium (Colace) 100 mg PO BID [facility] Last Admin: 07/29/18 20:47 Dose: 100 mg Famotidine (Pepcid) 20 mg PO Q12H [facility] Last Admin: 07/29/18 20:47 Dose: 20 mg Cefazolin Sodium/Dextrose 2 gm (/ Premix) 50 mls @ 100 mls/hr IV Q8H [facility] Stop: 07/30/18 08:29 Last Admin: 07/30/18 00:23 Dose: 100 mls/hr Infusion: 07/29/18 17:00 Dose: 100 mls/hr Admin: 07/29/18 16:30 Dose: 100 mls/hr Ketorolac Tromethamine (Toradol) 15 mg IVPUSH Q6H PRN PRN Reason: Pain Last Admin: 07/29/18 17:39 Dose: 15 mg Levothyroxine Sodium (Levothyroxine) 150 mcg PO ACBREAKFAST [facility] Last Admin: 07/30/18 06:15 Dose: 150 mcg Lisinopril (Prinivil) 10 mg PO DAILY [facility] Magnesium Hydroxide (Milk Of Magnesia) 30 ml PO BID PRN PRN Reason: Constipation Miscellaneous Information (Remove Patch) 0 ea TRDERM Q24H [facility] Morphine Sulfate (Morphine) 2 mg IVPUSH Q2H PRN PRN Reason: Breakthrough Pain Naloxone HCl (Narcan) 0.1 mg IVPUSH Q5M PRN PRN Reason: Oversedation Nicotine (Habitrol) 21 mg TRDERM DAILY PRN PRN Reason: Tobacco use Ondansetron HCl (Zofran) 4 mg IVPUSH Q6H PRN PRN Reason: Nausea/Vomiting Oxycodone/Acetaminophen (Percocet 325-5 Mg) 1 - 2 tab PO Q4H PRN PRN Reason: Pain Last Admin: 07/30/18 06:15 Dose: 1 tab Pregabalin (Lyrica) 50 mg PO ONETIME [facility] Last Admin: 07/29/18 06:48 Dose: 50 mg Rivaroxaban (Xarelto) 10 mg PO DAILY [facility] Senna (Senna) 8.6 mg PO BID PRN PRN Reason: Constipation Simvastatin (Zocor) 10 mg PO DAILY [facility] Sodium Chloride (Saline Flush) 10 ml FLUSH ASDIRECTED PRN PRN Reason: Keep Vein Open - Assessment Assessment (Free Text/Narrative):: POD#1 - left ESTEFANIA - Plan Plan (Free Text/Narrative):: 1. Discharge to home today if cleared by Hospitalist service and therapies. 2. ESTEFANIA precautions. 3. Xarelto for VTE prophylaxis (family hx VTE). 4. Hgb 14.2. The pt's case was discussed with Dr. Hale.
--- NOTE | 2018-07-30 07:58 | PCM.DCSUM1 ---
Discharge Summary - Hospital Course Brief History: Juan is a 62 yo male who underwent left ESTEFANIA with Dr. Hale on 07-29. The procedure was completed under spinal anesthesia. The pt tolerated the procedure well and was admitted to the Medical-Surgical Unit. Medical management was provided by the Hospitalist service. The pt's Hospital course was uneventful. The pt's Hgb on POD#1 was 14.2. On POD#1, Xarelto 10mg PO daily was initiated for VTE prophylaxis. SCDs and TEDs were also ordered. A Mepilex dressing was placed at the incision site at the time of surgery and remained clean and dry. The pt participated in P.T. and O.T. and progressed well. He followed the ESTEFANIA precautions. The pt was allowed to WBAT. On POD#1, the pt was deemed appropriate to discharge to home. - Discharge Data Discharge Date: 07/30/18 Discharge Disposition: Home, Self-Care 01 Condition: Good - Patient Summary/Data Consults: Consultations 07/29/18 06:23 Consult to Physician [CONS] Routine OT Evaluation and Treatment [CONS] Routine PT Evaluation and Treatment [CONS] Routine - Patient Instructions Diet: Usual Diet as Tolerated Activity: Apply Ice, As Tolerated, Elevate Extremity, Full Weight Bearing Activity, Other: Total hip precautions. Driving: Do Not Drive Showering/Bathing: May Shower Wound/Incision Care: Keep Operative Site/Wound Site Clean and Dry, Do NOT Change Dressing Notify Provider of: Fever, Increased Pain, Swelling and Redness, Drainage, Nausea and/or Vomiting Other/Special Instructions: Please get up and moving around EVERY HOUR while awake. This helps to prevent blood clots. Have help with mobility as needed. Please take the Xarelto blood thinner medication daily - this also helps to prevent blood clots. Please wear the ALBERTO hose during the day and you may remove them at night. Please schedule for P.T. Complete the P.T. exercises and stretches that were instructed in the Hospital. Please use the pain medication as needed. The medication may cause drowsiness and/or constipation. You could use a stool softener like docusate sodium or Colace 100mg twice daily and/or a laxative like Miralax daily for constipation. Contact your primary care provider for further instructions if you are constipated. Try to wean from use of the pain medication as soon as able. Please do not use other medications that may cause drowsiness (other pain medications, anxiety pills, sleeping pills, allergy medications that cause drowsiness) while using the pain medication. Please do not use alcohol while using the pain medication. Use the incentive spirometer often. Please place ice to the hip often. Please elevate the limb to decrease swelling. Follow the total hip arthroplasty precautions. Keep the Mepilex dressing in place until follow-up. Please notify the Clinic if the dressing is saturated or rolls. Increase protein intake in your diet as this helps with healing. If you are a diabetic, please closely monitor your blood sugars and notify your primary care provider of your values. Elevated blood sugars increases the risk of infection. Please call [phone] with questions or concerns. - Discharge Plan *PRESCRIPTION DRUG MONITORING PROGRAM REVIEWED*: No *COPY OF PRESCRIPTION DRUG MONITORING REPORT IN PATIENT BAKARI: No Prescriptions/Med Rec: Acetaminophen/oxyCODONE [Percocet 325-5 MG] 1 - 2 tab PO Q6H PRN #60 tablet PRN Reason: Pain Rivaroxaban [Xarelto] 10 mg PO DAILY #40 tablet Home Medications: Home Meds Amoxicillin [Amoxil] 500 mg PO ASDIRECTED 10/09/16 [History] Aspirin [Halfprin] 81 mg PO DAILY 10/09/16 [History] Levothyroxine 150 mcg PO ACBREAKFAST 10/09/16 [History] Pravastatin [Pravachol] 20 mg PO DAILY 10/09/16 [History] Ramipril [Altace] 5 mg PO DAILY 10/09/16 [History] amLODIPine [Norvasc] 5 mg PO DAILY 10/09/16 [History] Acetaminophen/oxyCODONE [Percocet 325-5 MG] 1 - 2 tab PO Q6H PRN #60 tablet 06/09 [Rx] Bisacodyl [Dulcolax] 5 mg PO DAILY PRN tablet 07/30/18 [Rx] Docusate Sodium [Colace] 100 mg PO BID cap 07/30/18 [Rx] Famotidine [Pepcid] 20 mg PO Q12H tablet 07/30/18 [Rx] Nicotine [Habitrol] 21 mg TRDERM DAILY PRN patch 07/30/18 [Rx] Remove Patch 0 ea TRDERM Q24H each 07/30/18 [Rx] Rivaroxaban [Xarelto] 10 mg PO DAILY #40 tablet 07/30/18 [Rx] Sennosides [Senna] 8.6 mg PO BID PRN tablet 07/30/18 [Rx] Referrals: Ailyn Obrien PA-C [Physician [facility]] - - Patient Data Vitals - Most Recent: Last Vital Signs Temp 97.2 F 07/30/18 07:23 Pulse 66 07/30/18 07:23 Resp 18 07/30/18 07:23 BP 121/81 07/30/18 07:23 Pulse Ox 96 07/30/18 06:00 Weight - Most Recent: 205 lb 4.8 oz I&O - Last 24 hours: Intake & Output 07/29/18 07/30/18 07/30/18 22:59 06:59 14:59 Intake Total 2070 3200 Output Total 600 1300 Balance 1470 1900 Lab Results - Last 24 hrs: Laboratory Results - last 24 hr 07/30/18 07/30/18 Range/Units 06:44 06:44 WBC 11.52 H (4.23-9.07) K/mm3 RBC 4.35 L (4.63-6.08) M/mm3 Hgb 14.2 (13.7-17.5) gm/L Hct 43.4 (40.1-51.0) % MCV 99.8 H (79.0-92.2) fl MCH 32.6 H (25.7-32.2) pg MCHC 32.7 (32.2-35.5) g/dl RDW Std Deviation 52.2 H (35.1-43.9) fL Plt Count 205 (163-337) K/mm3 MPV 9.4 (9.4-12.3) fl Sodium 136 (136-145) mEq/L Potassium 4.1 (3.5-5.1) mEq/L Chloride 101 (98-107) mEq/L Carbon Dioxide 28 (21-32) mEq/L Anion Gap 11.1 (5-15) BUN 17 (7-18) mg/dL Creatinine 1.1 (0.7-1.3) mg/dL Est Cr Clr Drug Dosing 62.83 mL/min Estimated GFR (MDRD) > 60 (>60) mL/min BUN/Creatinine Ratio 15.5 (14-18) Glucose 149 H (80-115) mg/dL Calcium 8.8 (8.5-10.1) mg/dL Total Bilirubin 0.5 (0.2-1.0) mg/dL AST 44 H (15-37) U/L ALT 37 (16-63) U/L Alkaline Phosphatase 76 (46-116) U/L Total Protein 6.8 (6.4-8.2) g/dl Albumin 3.2 L (3.4-5.0) g/dl Globulin 3.6 gm/dL Albumin/Globulin Ratio 0.9 L (1-2) Med Orders - Current: Current Medications Amlodipine Besylate (Norvasc) 5 mg PO DAILY [facility] Aspirin (Halfprin) 81 mg PO DAILY [facility] Bisacodyl (Dulcolax) 5 mg PO DAILY PRN PRN Reason: Constipation Cyclobenzaprine HCl (Flexeril) 10 mg PO TID PRN PRN Reason: Spasms Docusate Sodium (Colace) 100 mg PO BID [facility] Last Admin: 07/29/18 20:47 Dose: 100 mg Famotidine (Pepcid) 20 mg PO Q12H [facility] Last Admin: 07/29/18 20:47 Dose: 20 mg Cefazolin Sodium/Dextrose 2 gm (/ Premix) 50 mls @ 100 mls/hr IV Q8H [facility] Stop: 07/30/18 08:29 Last Admin: 07/30/18 00:23 Dose: 100 mls/hr Ketorolac Tromethamine (Toradol) 15 mg IVPUSH Q6H PRN PRN Reason: Pain Last Admin: 07/29/18 17:39 Dose: 15 mg Levothyroxine Sodium (Levothyroxine) 150 mcg PO ACBREAKFAST [facility] Last Admin: 07/30/18 06:15 Dose: 150 mcg Lisinopril (Prinivil) 10 mg PO DAILY [facility] Magnesium Hydroxide (Milk Of Magnesia) 30 ml PO BID PRN PRN Reason: Constipation Miscellaneous Information (Remove Patch) 0 ea TRDERM Q24H [facility] Morphine Sulfate (Morphine) 2 mg IVPUSH Q2H PRN PRN Reason: Breakthrough Pain Naloxone HCl (Narcan) 0.1 mg IVPUSH Q5M PRN PRN Reason: Oversedation Nicotine (Habitrol) 21 mg TRDERM DAILY PRN PRN Reason: Tobacco use Ondansetron HCl (Zofran) 4 mg IVPUSH Q6H PRN PRN Reason: Nausea/Vomiting Oxycodone/Acetaminophen (Percocet 325-5 Mg) 1 - 2 tab PO Q4H PRN PRN Reason: Pain Last Admin: 07/30/18 06:15 Dose: 1 tab Pregabalin (Lyrica) 50 mg PO ONETIME [facility] Last Admin: 07/29/18 06:48 Dose: 50 mg Rivaroxaban (Xarelto) 10 mg PO DAILY [facility] Senna (Senna) 8.6 mg PO BID PRN PRN Reason: Constipation Simvastatin (Zocor) 10 mg PO DAILY [facility] Sodium Chloride (Saline Flush) 10 ml FLUSH ASDIRECTED PRN PRN Reason: Keep Vein Open Discontinued Medications Acetaminophen (Tylenol) 975 mg PO ONETIME [facility] Last Admin: 07/29/18 06:48 Dose: 975 mg Albuterol (Proventil Neb Soln) 2.5 mg NEB ONETIME PRN PRN Reason: Shortness of Breath Stop: 07/29/18 12:00 Amoxicillin (Amoxil) 500 mg PO ASDIRECTED [facility] Bupivacaine HCl (Marcaine 0.25%) Confirm Administered Dose 30 ml .ROUTE .STK- MED ONE Stop: 07/29/18 06:40 Last Admin: 07/29/18 08:39 Dose: 30 ml Bupivacaine HCl (Sensorcaine-Mpf 0.75%) Confirm Administered Dose 30 ml .ROUTE .STK-MED ONE Stop: 07/29/18 06:52 Cefazolin Sodium (Ancef) Confirm Administered Dose 2 gm .ROUTE .STK-MED ONE Stop: 07/29/18 06:40 Last Admin: 07/29/18 08:38 Dose: 2 gm Cefazolin Sodium (Ancef) Confirm Administered Dose 2 gm .ROUTE .STK-MED ONE Stop: 07/29/18 07:58 Morphine Sulfate 8 mg/Epinephrine HCl 0.3 mg/Cefuroxime Sodium 750 mg/Ketorolac Tromethamine 30 mg/Sodium Chloride 27.9 ml 0 mg .XX ONETIME ONE Stop: 07/29/18 07:46 Last Admin: 07/29/18 08:39 Dose: 788.3 mg Dexamethasone (Dexamethasone) Confirm Administered Dose 8 mg .ROUTE .STK-MED ONE Stop: 07/29/18 08:02 Diphenhydramine HCl (Benadryl) 25 mg IVPUSH Q6H PRN PRN Reason: Pruritis Stop: 07/29/18 12:00 Ephedrine Sulfate (Ephedrine Sulfate) 5 mg IVPUSH ASDIRECTED PRN PRN Reason: Hypotension Stop: 07/29/18 12:00 Fentanyl (Sublimaze) Confirm Administered Dose 100 mcg .ROUTE .STK-MED ONE Stop: 07/29/18 06:49 Fentanyl (Sublimaze) 50 mcg IVPUSH Q5M PRN PRN Reason: Pain Hydromorphone HCl (Dilaudid) 0.5 mg IVPUSH ASDIRECTED PRN PRN Reason: Severe Pain Stop: 07/29/18 12:00 Lactated Ringer's (Ringers, Lactated) 1,000 mls @ 125 mls/hr IV ASDIRECTED [facility] Last Admin: 07/29/18 06:30 Dose: 125 mls/hr Lidocaine HCl (Xylocaine-Mpf 1%) Confirm Administered Dose 5 mls @ as directed .ROUTE .STK-MED ONE Stop: 07/29/18 06:52 Lactated Ringer's (Ringers, Lactated) Confirm Administered Dose 2,000 mls @ as directed .ROUTE .STK-MED ONE Stop: 07/29/18 08:12 Iodine (Iodine 2% Mild Tincture) Confirm Administered Dose 30 ml .ROUTE .STK- MED ONE Stop: 07/29/18 06:40 Last Admin: 07/29/18 08:36 Dose: 18 ml Ketamine HCl (Ketalar) Confirm Administered Dose 500 mg .ROUTE .STK-MED ONE Stop: 07/29/18 06:49 Ketorolac Tromethamine (Toradol) Confirm Administered Dose 30 mg .ROUTE .STK- MED ONE Stop: 07/29/18 08:12 Lidocaine/Sodium Bicarbonate (Buffered Lidocaine 1% In Ns 8.4%) 0.25 ml IDERM ONETIME PRN PRN Reason: Prior to IV Start Last Admin: 07/29/18 06:29 Dose: 0.25 ml Metoclopramide HCl (Reglan) Confirm Administered Dose 10 mg .ROUTE .STK-MED ONE Stop: 07/29/18 07:58 Midazolam HCl (Versed 1 Mg/Ml) Confirm Administered Dose 2 mg .ROUTE .STK-MED ONE Stop: 07/29/18 06:49 Morphine Sulfate (Duramorph Pf) Confirm Administered Dose 10 mg .ROUTE .STK-MED ONE Stop: 07/29/18 06:51 Ondansetron HCl (Zofran) Confirm Administered Dose 4 mg .ROUTE .STK-MED ONE Stop: 07/29/18 07:52 Ondansetron HCl (Zofran) 4 mg IVPUSH ONETIME PRN PRN Reason: Nausea/Vomiting Stop: 07/29/18 12:00 Oxycodone HCl (Oxycontin) 10 mg PO ONETIME [facility] Last Admin: 07/29/18 06:48 Dose: 10 mg Propofol (Diprivan 20 Ml) Confirm Administered Dose 600 mg .ROUTE .STK-MED ONE Stop: 07/29/18 06:48 Propofol (Diprivan 20 Ml) Confirm Administered Dose 200 mg .ROUTE .STK-MED ONE Stop: 07/29/18 08:39 Tranexamic Acid (Cyklokapron) Confirm Administered Dose 1,000 mg .ROUTE .STK- MED ONE Stop: 07/29/18 06:40 Last Admin: 07/29/18 08:41 Dose: 1,000 mg Vancomycin HCl (Vancomycin) Confirm Administered Dose 1 gm .ROUTE .STK-MED ONE Stop: 07/29/18 06:40 Last Admin: 07/29/18 08:41 Dose: 1 gm
[2018-07-30] MEDS: Docusate Sodium 100 MG Cap PO SCH (08:59)
[2018-07-30] MEDS ORDERED: Lisinopril 10 MG Tab PO SCH (09:00)
[2018-07-30] MEDS ORDERED: Aspirin 81 MG Tab.EC PO SCH (09:00)
[2018-07-30] MEDS: Famotidine 20 MG Tab PO SCH (09:00)
[2018-07-30] MEDS ORDERED: Simvastatin 10 MG Tab PO SCH (09:00)
[2018-07-30] MEDS ORDERED: amLODIPine 5 MG Tab PO SCH (09:00)
[2018-07-30] MEDS ORDERED: Rivaroxaban 10 MG Tab PO SCH (09:00)
--- NOTE | 2018-08-09 21:32 | PCM.OPNOTE ---
- General Post-Op/Procedure Note Date of Surgery/Procedure: 07/29/18 Operative Procedure(s): left total hip arthroplasty Pre Op Diagnosis: left hip osteoarthrosis Post-Op Diagnosis: Same Anesthesia Technique: Local, MAC, Spinal Primary Surgeon: Carroll Hale Anesthesia Provider: Ledy Camargo Manager Machine: Ailyn Obrien Manager Machine: Alejandra Landry EBL in mLs: 150 Complications: None Condition: Good Free Text/Narrative:: size 54 36+2.5 5
--- NOTE | 2018-08-10 00:41 | OR ---
DATE OF OPERATION: 07/29/2018 SURGEON: Carroll Hale MD OPERATION PERFORMED: Left total hip arthroplasty. PREOPERATIVE DIAGNOSIS: Left hip osteoarthrosis. POSTOPERATIVE DIAGNOSIS: Left hip osteoarthrosis. ANESTHESIA: Local MAC with spinal. ANESTHESIA PROVIDER: Marion Ramirez. ASSISTANTS: 1. Ailyn Obrien PA-C. 2. Alejandra Landry LPN. ESTIMATED BLOOD LOSS: 150 mL. COMPLICATIONS: None. CONDITION: Stable. IMPLANTS: 1. [place]ahoma size 54 solid Tritanium acetabular cup. 2. Jose size 36, +2.5 mm Biolox ceramic head. 3. [place] size 5 Accolade II stem. DESCRIPTION OF PROCEDURE: The patient was identified in the preoperative holding area. Proper site was marked and identified by the surgeon. The patient was taken back to the operating theater where after adequate anesthesia, the patient was placed in the right lateral decubitus position. Axillary roll was placed. All bony prominences well padded. Pegs were then placed and were well padded. The patient's gluteal fold was parallel to the floor. At this time, the left hip was then sterilely prepped and draped in the usual sterile fashion. OR time-out was performed. The patient received 2 g IV Ancef. At this time, a standard incision was made centered over the greater trochanter. This was taken down to the IT band and gluteal fascia, which was incised along the incisional length. Charnley retractor was then placed. Attention was turned to the short external rotators and takedown of the short external rotators was done from the level of the piriformis all the way down to the lesser trochanter. At this time, a capsulotomy was also performed and the hip was dislocated. Neck cut was then completed and attention was turned to the acetabulum. Anterior and posterior acetabular retractors were placed. The remaining labrum as well as pulvinar was then removed. Starting with a 46 reamer, I was able to ream up to a 54 which was found to have good cortical chatter. At this time, a 54 mm solid Tritanium acetabular cup was impacted in place and roughly 45 degrees of abduction and 20 degrees of anteversion, the size E polyethylene elevated liner was then impacted into place. Attention was turned to the femoral side. Femoral elevator was placed and box chisel was used out laterally. Starter awl was placed down the canal. Starting with the 0 broach, I was able to broach up to a size 5 which was found to be rotationally and vertically stable. Trial implants were then trialed starting with 0 neck and then we trialed 2.5, it had adequate presybeterian of leg lengths. At this time, it was stable throughout range of motion. Bone hook was used to dislocate the hip. At this time, a size 5 Accolade II stem was impacted in place along with a 36, +2.5 mm head. Hip was then relocated, #5 Ethibond suture was used for closure of short external rotator and capsule. A 1 L dilute Betadine solution was irrigated through the hip along with 3 L of pulse lavage irrigation with Ancef. Topical tranexamic acid was placed along with vancomycin powder and periarticular injection was done at this time, #2 barbed suture was used for closure of the IT band and gluteal fascia, 2-0 Vicryl was used subcutaneously, and Cranios was used for the skin. The patient was sent to PACU in stable condition. MMODAL /[id number]
== END 2018-07-30 11:44 | disposition home or self-care (01) | DRG 470 ==
LOC: JD.MS 06:05
PROVIDERS: ADMIT Orthopaedic Surgery; ATTEND Orthopaedic Surgery
PROC: 0SRB04Z Replacement of Left Hip Joint with Ceramic on Polyethylene Synthetic Substitute, Open Approach (ICD-10-PCS; principal; 2018-07-29)
DX: M16.12 Unilateral primary osteoarthritis, left hip (principal); M85.80 Other specified disorders of bone density and structure, unspecified site; I10 Essential (primary) hypertension; E78.2 Mixed hyperlipidemia; E03.9 Hypothyroidism, unspecified; F17.210 Nicotine dependence, cigarettes, uncomplicated; E78.00 Pure hypercholesterolemia, unspecified; J45.909 Unspecified asthma, uncomplicated; I49.1 Atrial premature depolarization; I49.9 Cardiac arrhythmia, unspecified; K57.90 Diverticulosis of intestine, part unspecified, without perforation or abscess without bleeding; E66.9 Obesity, unspecified; Z68.31 Body mass index [BMI] 31.0-31.9, adult; Z85.828 Personal history of other malignant neoplasm of skin; Z96.651 Presence of right artificial knee joint; Z79.01 Long term (current) use of anticoagulants; Z79.82 Long term (current) use of aspirin; Z79.899 Other long term (current) drug therapy; Z96.612 Presence of left artificial shoulder joint
CPT/HCPCS: 01214; 36415; 51701; 51798; 73501-26-LT; 73501-LT; 80053; 85027; 85730; 86850; 86900; 86901; 87641; 94762; 97110-GP; 97116-GP; 97161-GP; 97165-GO; 97535-GO; A9270-GY; C1776; J0171; J0690; J0697; J1100; J1885; J2250; J2270; J2405; J2704; J2765; J3010; J3370; J3490; J7120

== ENCOUNTER 2018-08-06 10:25 | Emergency (ER) | payer OTHER ==
[2018-08-06 10:42] VITALS: BP 120/80
[2018-08-06] MEDS ORDERED: Sodium Chloride 0.9% 10 ML Syringe FLUSH PRN ×2 (11:16→12:47)
[2018-08-06] MEDS ORDERED: Ondansetron 4 MG/2 ML SDV IVPUSH ONE (11:17)
[2018-08-06] MEDS ORDERED: HYDROmorphone 0.5 MG/0.5 ML SYRINGE IVPUSH ONE (11:17)
--- NOTE | 2018-08-06 11:49 | EDM.PDOC ---
ED HPI GENERAL MEDICAL PROBLEM - General Chief Complaint: Back Pain or Injury Stated Complaint: POSS BLOOD BLOT POST SURGERY 07/29 Time Seen by Provider: 08/06/18 11:05 Source of Information: Reports: Patient History Limitations: Reports: No Limitations - History of Present Illness INITIAL COMMENTS - FREE TEXT/NARRATIVE: 62-year-old male presents for evaluation and treatment of right-sided mid back pain. Patient reports the pain started suddenly yesterday. He states he was attempting to get in and out of his vehicle. Reports immediate pain to the mid back after that is Worse with movement and better with rest. He describes the pain on the right side of his mid back underneath his rib cage. He denies any chest pain, shortness of breath, fevers, chills, nausea, vomiting, lightheadedness, dizziness or syncope. No urinary symptoms including no dysuria. Patient had a hip replacement with Dr. Hale on July 29. He states he has had swelling in his left leg and pain to the left leg from the surgery. He is currently on xarelto, 10 mg daily for DVT and PE prophylaxis. He has no personal history of blood clots but does report a family history of blood clots. Patient reports he started physical therapy for his hip today. He is no longer taking pain medications and has only been taking Tylenol for the back pain thus far. Does have a history pain to his lumbar spine. This does not feel similar. He is to have surgery was low back in the near future but his left hip was worse. This will be done with Dr. ragsdale in [place]. Right Middle Back Pain Score (Numeric/FACES): 0 - Related Data Allergies Allergy/AdvReac Type Severity Reaction Status Date / Time No Known Allergies Allergy Verified 08/06/18 10:34 Home Meds: Home Meds Aspirin [Halfprin] 81 mg PO DAILY 10/09/16 [History] Levothyroxine 150 mcg PO ACBREAKFAST 10/09/16 [History] Pravastatin [Pravachol] 20 mg PO DAILY 10/09/16 [History] Ramipril [Altace] 5 mg PO DAILY 10/09/16 [History] amLODIPine [Norvasc] 5 mg PO DAILY 10/09/16 [History] Rivaroxaban [Xarelto] 10 mg PO DAILY #40 tablet 07/30/18 [Rx] Orphenadrine [Norflex] 100 mg PO BID PRN #20 tab 08/06/18 [Rx] Past Medical History HEENT History: Reports: None Cardiovascular History: Reports: High Cholesterol, Hypertension Other Cardiovascular History: Patient has known sinus arrythmia with PACs Respiratory History: Reports: None Gastrointestinal History: Reports: Diverticulosis Genitourinary History: Reports: None Musculoskeletal History: Reports: Fracture, Osteoarthritis Neurological History: Reports: Other (See Below) Other Neuro History: syncope Psychiatric History: Reports: None Endocrine/Metabolic History: Reports: Hypothyroidism Hematologic History: Reports: None Immunologic History: Reports: None Oncologic (Cancer) History: Reports: Other (See Below) Other Oncologic History: skin cancer of lip Dermatologic History: Reports: Other (See Below) 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 viltiligo - Past Surgical History Other HEENT Surgeries/Procedures: blepharoplasty, bilat. GI Surgical History: Reports: Appendectomy, Colonoscopy Musculoskeletal Surgical History: Reports: Arthroscopic Procedure Other Musculoskeletal Surgeries/Procedures:: right knee arthroscopy and partial right knee replacement. right rotator cuff repair, left total shoulder, bilateral thumb repair, clavicle fracture. Social & Family History - Family History Other GI Family History: Mother had colon cancer Oncologic: Reports: Colon Other Oncologic Family History: Mother had colon cancer - Tobacco Use Smoking Status *Q: Current Every Day Smoker Years of Tobacco use: 40 Packs/Tins Daily: 0.5 - Caffeine Use Caffeine Use: Reports: Coffee, Soda, Tea - Recreational Drug Use Recreational Drug Use: No ED ROS GENERAL - Review of Systems Review Of Systems: See Below Constitutional: Denies: Fever, Chills Respiratory: Denies: Shortness of Breath Cardiovascular: Denies: Chest Pain GI/Abdominal: Denies: Abdominal Pain, Nausea, Vomiting : Reports: No Symptoms. Denies: Dysuria Musculoskeletal: Reports: Back Pain (mid back, right), Leg Pain (reports left leg pain and swelling; s/p left hip repair 8 days post op) Neurological: Denies: Dizziness, Syncope ED EXAM, UPPER BACK/NECK PAIN - Physical Exam Exam: See Below Exam Limited By: No Limitations General Appearance: Alert, WD/WN, Mild Distress Eye Exam: Bilateral Eye: Normal Inspection Throat/Mouth Exam: Normal Inspection, Normal Voice, No Airway Compromise Neck Exam: Non-Tender Cardiovascular/Respiratory: Regular Rate, Rhythm, No M/R/G GI/Abdominal: Normal Bowel Sounds, Soft, Non-Tender Back Exam: Normal Inspection, Other (identifies pain to the right mid back just inferior to the right scapula) Extremities: Normal Inspection, No Pedal Edema. No: Radha's Sign Neurologic: Alert, Normal Mood/Affect Psychiatric: Normal Affect, Normal Mood Skin Exam: Normal Color, Warm/Dry EKG INTERPRETATION EKG Date: 08/06/18 Time: 13:28 Rhythm: Other (NSR, ventricular bigeminy) Rate (Beats/Min): 72 [place]: Normal P-Wave: Present QRS: Normal ST-T: Normal QT: Normal EKG Interpretation Comments: NSR at 72 bpm, ventricular bigeminy. Reviewed by myself and Dr. Candelaria. Course - Vital Signs Last Recorded V/S: Last Vital Signs Temp 97.8 F 08/06/18 10:38 Pulse 55 L 08/06/18 10:38 Resp 12 08/06/18 10:38 BP 120/80 08/06/18 10:38 Pulse Ox 100 08/06/18 10:38 - Orders/Labs/Meds Labs: Laboratory Tests 08/06/18 08/06/18 08/06/18 Range/Units 11:50 11:50 11:50 WBC 11.43 H (4.23-9.07) K/mm3 RBC 4.07 L (4.63-6.08) M/mm3 Hgb 13.4 L (13.7-17.5) gm/L Hct 40.2 (40.1-51.0) % MCV 98.8 H (79.0-92.2) fl MCH 32.9 H (25.7-32.2) pg MCHC 33.3 (32.2-35.5) g/dl RDW Std Deviation 49.9 H (35.1-43.9) fL Plt Count 282 (163-337) K/mm3 MPV 9.2 L (9.4-12.3) fl Neut % (Auto) 72.5 H (34.0-67.9) % Lymph % (Auto) 15.9 L (21.8-53.1) % [place] % (Auto) 9.2 (5.3-12.2) % Eos % (Auto) 1.8 (0.8-7.0) Baso % (Auto) 0.3 (0.1-1.2) % Neut # (Auto) 8.28 H (1.78-5.38) K/mm3 Lymph # (Auto) 1.82 (1.32-3.57) K/mm3 [place] # (Auto) 1.05 H (0.30-0.82) K/mm3 Eos # (Auto) 0.21 (0.04-0.54) K/mm3 Baso # (Auto) 0.04 (0.01-0.08) K/mm3 D-Dimer, Quantitative 3.20 H (0.19-0.50) mg/L Sodium 136 (136-145) mEq/L Potassium 4.1 (3.5-5.1) mEq/L Chloride 103 (98-107) mEq/L Carbon Dioxide 26 (21-32) mEq/L Anion Gap 11.1 (5-15) BUN 19 H (7-18) mg/dL Creatinine 1.1 (0.7-1.3) mg/dL Est Cr Clr Drug Dosing 62.83 mL/min Estimated GFR (MDRD) > 60 (>60) mL/min BUN/Creatinine Ratio 17.3 (14-18) Glucose 97 (80-115) mg/dL Calcium 9.1 (8.5-10.1) mg/dL Total Bilirubin 0.6 (0.2-1.0) mg/dL AST 48 H (15-37) U/L ALT 50 (16-63) U/L Alkaline Phosphatase 85 (46-116) U/L CK-MB (CK-2) (0-3.6) ng/ml Troponin I (0.00-0.056) ng/mL C-Reactive Protein 4.6 H* (<1.0) mg/dL Total Protein 7.2 (6.4-8.2) g/dl Albumin 3.2 L (3.4-5.0) g/dl Globulin 4.0 gm/dL Albumin/Globulin Ratio 0.8 L (1-2) Urine Color (Yellow) Urine Appearance (Clear) Urine pH (5.0-8.0) Ur Specific [place] (1.005-1.030) Urine Protein (Negative) Urine Glucose (UA) (Negative) Urine Ketones (Negative) Urine Occult Blood (Negative) Urine Nitrite (Negative) Urine Bilirubin (Negative) Urine Urobilinogen (0.2-1.0) Ur Leukocyte Esterase (Negative) Urine RBC (0-5) /hpf Urine WBC (0-5) /hpf Ur Epithelial Cells (0-5) /hpf Urine Bacteria (FEW) /hpf Urine Mucus (FEW) /hpf 08/06/18 08/06/18 Range/Units 11:50 12:00 WBC (4.23-9.07) K/mm3 RBC (4.63-6.08) M/mm3 Hgb (13.7-17.5) gm/L Hct (40.1-51.0) % MCV (79.0-92.2) fl MCH (25.7-32.2) pg MCHC (32.2-35.5) g/dl RDW Std Deviation (35.1-43.9) fL Plt Count (163-337) K/mm3 MPV (9.4-12.3) fl Neut % (Auto) (34.0-67.9) % Lymph % (Auto) (21.8-53.1) % [place] % (Auto) (5.3-12.2) % Eos % (Auto) (0.8-7.0) Baso % (Auto) (0.1-1.2) % Neut # (Auto) (1.78-5.38) K/mm3 Lymph # (Auto) (1.32-3.57) K/mm3 [place] # (Auto) (0.30-0.82) K/mm3 Eos # (Auto) (0.04-0.54) K/mm3 Baso # (Auto) (0.01-0.08) K/mm3 D-Dimer, Quantitative (0.19-0.50) mg/L Sodium (136-145) mEq/L Potassium (3.5-5.1) mEq/L Chloride (98-107) mEq/L Carbon Dioxide (21-32) mEq/L Anion Gap (5-15) BUN (7-18) mg/dL Creatinine (0.7-1.3) mg/dL Est Cr Clr Drug Dosing mL/min Estimated GFR (MDRD) (>60) mL/min BUN/Creatinine Ratio (14-18) Glucose (80-115) mg/dL Calcium (8.5-10.1) mg/dL Total Bilirubin (0.2-1.0) mg/dL AST (15-37) U/L ALT (16-63) U/L Alkaline Phosphatase (46-116) U/L CK-MB (CK-2) 4.1 H (0-3.6) ng/ml Troponin I < 0.017 (0.00-0.056) ng/mL C-Reactive Protein (<1.0) mg/dL Total Protein (6.4-8.2) g/dl Albumin (3.4-5.0) g/dl Globulin gm/dL Albumin/Globulin Ratio (1-2) Urine Color Yellow (Yellow) Urine Appearance Clear (Clear) Urine pH 7.0 (5.0-8.0) Ur Specific [place] 1.020 (1.005-1.030) Urine Protein Negative (Negative) Urine Glucose (UA) Negative (Negative) Urine Ketones Negative (Negative) Urine Occult Blood Trace-lysed H (Negative) Urine Nitrite Negative (Negative) Urine Bilirubin Negative (Negative) Urine Urobilinogen 0.2 (0.2-1.0) Ur Leukocyte Esterase Negative (Negative) Urine RBC 0-5 (0-5) /hpf Urine WBC 0-5 (0-5) /hpf Ur Epithelial Cells Not seen (0-5) /hpf Urine Bacteria Not seen (FEW) /hpf Urine Mucus Not seen (FEW) /hpf Meds: Medications Discontinued Medications Generic Name Dose Route Start Last Admin Trade Name Freq PRN Reason Stop Dose Admin Hydromorphone HCl 0.5 mg 08/06/18 11:17 08/06/18 11:51 Dilaudid IVPUSH 08/06/18 11:18 0.5 mg ONETIME ONE Administration Sodium Chloride 1,000 mls @ 999 mls/hr 08/06/18 12:46 08/06/18 13:12 Normal Saline IV 08/06/18 13:46 999 mls/hr ONETIME ONE Administration Sodium Chloride 100 mls @ 75 mls/hr 08/06/18 13:00 08/06/18 13:04 Normal Saline IV 75 mls/hr ASDIRECTED [place] Administration Iopamidol 100 ml 08/06/18 12:47 08/06/18 13:03 Isovue-370 (76%) IVPUSH 08/06/18 12:48 70 ml ONETIME ONE Administration Ondansetron HCl 4 mg 08/06/18 11:17 08/06/18 11:49 Zofran IVPUSH 08/06/18 11:18 4 mg ONETIME ONE Administration Orphenadrine Citrate 100 mg 08/06/18 14:28 08/06/18 14:36 Norflex PO 08/06/18 14:29 100 mg NOW STA Administration Sodium Chloride 10 ml 08/06/18 11:16 08/06/18 11:54 Saline Flush FLUSH 10 ml ASDIRECTED PRN Administration Keep Vein Open Sodium Chloride 10 ml 08/06/18 12:47 08/06/18 13:04 Saline Flush FLUSH 10 ml ONETIME PRN Administration IV FLUSH - Radiology Interpretation Free Text/Narrative:: CT chest Technique: Multiple axial sections were obtained through the chest. Intravenous contrast was utilized. Study has been performed as a pulmonary angiogram protocol. Findings: Pulmonary arteries are well-opacified. No filling defects are seen to indicate pulmonary embolism. Artifact is noted from left shoulder prosthesis. Previous right shoulder surgery is also noted. Mediastinum and hilar regions show no adenopathy or mass. Aorta shows no aneurysm. Mild to moderate coronary artery calcification is seen. No pericardial thickening is seen. Visualized portions of the upper abdominal structures are within normal limits. Lungs show no acute parenchymal change. No pleural effusions are seen. Slight degenerative change is scattered within the spine. Impression: 1. Incidental findings as described above. 2. No findings of pulmonary embolism. 3. No acute abnormality is seen on CT study of the chest. Bilateral lower extremity deep venous ultrasound: Duplex and color flow imaging was obtained of the right and left common femoral, proximal greater saphenous, superficial femoral, popliteal, posterior tibial and peroneal veins. Findings: Normal phasic flow, augmentation and compression is seen. Impression: 1. No evidence of deep venous thrombosis within the right or left lower extremities. - Re-Assessments/Exams Free Text/Narrative Re-Assessment/Exam: 08/06/18 12:48 updated the patient on lab results, will obtain PE study to rule out PE. Pain controlled. 08/06/18 16:38 Once the PE study returned normal, informed patient. Due to elevated d dimer, recent surgery and left leg pain and swelling went ahead and ordered ultrasound to rule out DVR. Reviewed the ultrasound report with the patient. He is feeling better. Will discharge home. This seems to be musculoskeletal in origin. Discharge instructions as documented. Departure - Departure Time of Disposition: 16:38 Disposition: Home, Self-Care 01 Condition: Fair Clinical Impression: Muscle spasm, S/P hip replacement, Elevated d-dimer - Discharge Information *PRESCRIPTION DRUG MONITORING PROGRAM REVIEWED*: No *COPY OF PRESCRIPTION DRUG MONITORING REPORT IN PATIENT BAKARI: No Prescriptions: Orphenadrine [Norflex] 100 mg PO BID PRN #20 tab PRN Reason: Muscle Spasm Instructions: Muscle Cramps and Spasms, [id number], Bleeding Precautions When on Anticoagulant Therapy, Pediatric Referrals: Castillo Huston MD [Primary Care Provider] - Carroll Hale MD [Physician] - Forms: ED Department Discharge Additional Instructions: continue to take the xarelto as prescribed. [id number] Tylenol as needed for pain. May fill the Percocet that Dr. Hale has prescribed to as needed for additional pain relief. Noflex 1 tablet twice a day as needed for muscle pain and spasms. Recommend activity as tolerated. Rest but did not be completely immobile as this may worsen the pain. Recommend moist heat to the sore area for additional pain relief. Recommend a rice sac or a water bottle with warm water and it. May also try topical products such as lidocaine patches, Icyhot or BenGay. Follow-up with your primary care provider as needed. Please return to the ER if your symptoms change or worsen.
[2018-08-06] MEDS ORDERED: Sodium Chloride 0.9% 1,000 ML IV ONE (12:46)
[2018-08-06] MEDS ORDERED: Iopamidol 755 Mg/ML 100 ML Bottle IVPUSH ONE (12:47)
[2018-08-06] MEDS ORDERED: Sodium Chloride 0.9% 100 ML IV SCH (13:00)
--- NOTE | 2018-08-06 13:58 | CT ---
CT chest Technique: Multiple axial sections were obtained through the chest. Intravenous contrast was utilized. Study has been performed as a pulmonary angiogram protocol. Findings: Pulmonary arteries are well-opacified. No filling defects are seen to indicate pulmonary embolism. Artifact is noted from left shoulder prosthesis. Previous right shoulder surgery is also noted. Mediastinum and hilar regions show no adenopathy or mass. Aorta shows no aneurysm. Mild to moderate coronary artery calcification is seen. No pericardial thickening is seen. Visualized portions of the upper abdominal structures are within normal limits. Lungs show no acute parenchymal change. No pleural effusions are seen. Slight degenerative change is scattered within the spine. Impression: 1. Incidental findings as described above. 2. No findings of pulmonary embolism. 3. No acute abnormality is seen on CT study of the chest. Diagnostic code #3
[2018-08-06] MEDS ORDERED: Orphenadrine 100 MG Tab.ER PO STA (14:28)
--- NOTE | 2018-08-06 16:14 | US ---
Bilateral lower extremity deep venous ultrasound: Duplex and color flow imaging was obtained of the right and left common femoral, proximal greater saphenous, superficial femoral, popliteal, posterior tibial and peroneal veins. Findings: Normal phasic flow, augmentation and compression is seen. Impression: 1. No evidence of deep venous thrombosis within the right or left lower extremities. Diagnostic code #1
== END 2018-08-06 17:00 | disposition home or self-care (01) ==
LOC: JD.ED 10:25
DX: M62.830 Muscle spasm of back (principal); R79.1 Abnormal coagulation profile; E78.00 Pure hypercholesterolemia, unspecified; I10 Essential (primary) hypertension; E03.9 Hypothyroidism, unspecified; F17.210 Nicotine dependence, cigarettes, uncomplicated; Z79.82 Long term (current) use of aspirin; Z79.899 Other long term (current) drug therapy; Z96.641 Presence of right artificial hip joint
CPT/HCPCS: 36415; 71275; 80053; 81001; 82553; 84484; 85025; 85379; 86140; 93005; 93970; 96361; 96374; 96375; 99284; A9270; J1170; J2405; J7030; J7040; J7050; Q9967; 93010

== ENCOUNTER 2019-01-24 08:50 | Inpatient (IN) | payer BC ==
[~2019-01-24 08:50] MED LIST changes: +Bisacodyl 5 MG Tab PO PRN; +Bupivacaine 0.75%/D5W 2 ML Amp ONE; +Cyclobenzaprine 10 MG Tab PO PRN; +Ketamine 500 mg/10 ML MDV ONE; +Ketorolac 30 MG/ML SDV ONE; +Lactated Ringers 1,000 ML ONE; +Lidocaine 1% 2 ML ONE; +Magnesium Hydroxide 400 MG/5 ML Susp 30 ML Cup PO PRN; +Midazolam 1 MG/ML 2 ML SDV ONE; +Morphine 2 MG/ML Syringe IVPUSH PRN; +Naloxone 0.4 MG/ML SDV IVPUSH PRN; +Ondansetron 4 MG/2 ML SDV IVPUSH PRN; +Ondansetron 4 MG/2 ML SDV ONE; +Phenylephrine/Normal Saline 100 MCG/ML 10 ML Syringe ONE; +Propofol 200 MG/20 ML SDV ONE; +Sennosides 8.6 MG Tab PO PRN; +ceFAZolin 1 GM Vial ONE; +fentaNYL 100 MCG/2 ML SDV ONE
--- NOTE | 2019-01-24 09:34 | PCM.PREANE ---
Preanesthetic Assessment - Anesthesia/Transfusion/Family Hx Anesthesia History: Prior Anesthesia Without Reaction Family History of Anesthesia Reaction: No Transfusion History: No Prior Transfusion(s) Intubation History: Unknown - Review of Systems General: No Symptoms Pulmonary: No Symptoms (History of Smokin/4 pack per day times 40 years) Cardiovascular: No Symptoms (History of HTN), Palpitations Gastrointestinal: No Symptoms Neurological: Tingling (bilateral fingers on both hands on occasion), Gait Disturbance (due to hip pain) Other: Reports: Easy Bleeding, Easy Bruising, Thyroid Problems (Hypothyroid) - Physical Assessment NPO Status Date: 01/23/19 NPO Status Time: 19:30 Pulse: 61 O2 Sat by Pulse Oximetry: 98 Respiratory Rate: 16 Blood Pressure: 132/83 Temperature: 36.1 C Vital Signs: Last Vital Signs Temp 36.1 C 01/24/19 09:05 Pulse 61 01/24/19 09:05 Resp 16 01/24/19 09:05 BP 132/83 01/24/19 09:05 Pulse Ox 98 01/24/19 09:05 Height: 1.68 m Weight: 85 kg ASA Class: 2 Mental Status: Alert & Oriented x3 Airway Class: Mallampati = 2 Dentition: Reports: Normal Dentition, Missing Tooth/Teeth, Caries Thyro-Mental Finger Breadths: 3 Mouth Opening Finger Breadths: 3 ROM/Head Extension: Full Lungs: Clear to Auscultation, Normal Respiratory Effort Cardiovascular: Regular Rate, Regular Rhythm, No Murmurs - Lab Values: All lab values reviewed and noted and within acceptable ranges to proceed with scheduled procedure. MRSA negative - Imaging/EKG Impressions: CXR: negative EKG: Sinus bradycardia rate=54, pac's noted - Allergies Allergies/Adverse Reactions: Allergies Allergy/AdvReac Type Severity Reaction Status Date / Time No Known Allergies Allergy Verified 01/23/19 11:05 - Anesthesia Plan Pre-Op Medication Ordered: Other (Pre-Op meds: lyrica, tylenol, oxycodone at 0920) - Acknowledgements Anesthesia Type Planned: Spinal Pt an Appropriate Candidate for the Planned Anesthesia: Yes Alternatives and Risks of Anesthesia Discussed w Pt/Guardian: Yes Pt/Guardian Understands and Agrees with Anesthesia Plan: Yes PreAnesthesia Questionnaire HEENT History: Reports: None, Impaired Vision Cardiovascular History: Reports: High Cholesterol, Hypertension Other Cardiovascular History: Patient has known sinus arrythmia with PACs Respiratory History: Reports: None Gastrointestinal History: Reports: Diverticulosis Genitourinary History: Reports: None FLAGMAN History: Reports: None Musculoskeletal History: Reports: Fracture, Osteoarthritis Neurological History: Reports: Other (See Below) Other Neuro History: syncope Psychiatric History: Reports: None Endocrine/Metabolic History: Reports: Hypothyroidism Hematologic History: Reports: None Immunologic History: Reports: None Oncologic (Cancer) History: Reports: Other (See Below) Other Oncologic History: skin cancer of lip Dermatologic History: Reports: Other (See Below) 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 viltiligo - Past Surgical History HEENT Surgical History: Reports: None Other HEENT Surgeries/Procedures: blepharoplasty, bilat. Cardiovascular Surgical History: Reports: None Respiratory Surgical History: Reports: None GI Surgical History: Reports: Appendectomy, Colonoscopy Other GI Surgeries/Procedures: Familial history of colon cancer Female Surgical History: Reports: None Male Surgical History: Reports: None Endocrine Surgical History: Reports: None Neurological Surgical History: Reports: None Musculoskeletal Surgical History: Reports: Arthroscopic Procedure Other Musculoskeletal Surgeries/Procedures:: right knee arthroscopy and partial right knee replacement. right rotator cuff repair, left total shoulder, bilateral thumb repair, clavicle fracture, left total hip replacement Oncologic Surgical History: Reports: None Dermatological Surgical History: Reports: None - SUBSTANCE USE Smoking Status *Q: Current Some Day Smoker Recreational Drug Use History: No - HOME MEDS Home Medications: Home Meds Aspirin [Halfprin] 81 mg PO DAILY 10/09/16 [History] Ramipril [Altace] 5 mg PO DAILY 10/09/16 [History] amLODIPine [Norvasc] 5 mg PO DAILY 10/09/16 [History] Cholecalciferol (Vitamin D3) [Vitamin D3] 5,000 unit PO DAILY 01/23/19 [History] Levothyroxine Sodium 137 mcg PO DAILY 01/23/19 [History] Rosuvastatin Calcium 20 mg PO DAILY 01/23/19 [History] - CURRENT (IN HOUSE) MEDS Current Meds: Current Medications Acetaminophen (Tylenol) 975 mg PO ONETIME [facility] Stop: 01/24/19 14:00 Last Admin: 01/24/19 09:21 Dose: 975 mg Aspirin (Ecotrin) 325 mg PO BID [facility] Bisacodyl (Dulcolax) 5 mg PO DAILY PRN PRN Reason: Constipation Morphine Sulfate 8 mg/Epinephrine HCl 0.3 mg/Cefuroxime Sodium 750 mg/Ketorolac Tromethamine 30 mg/Sodium Chloride 27.9 ml 0 mg .XX ONETIME ONE Stop: 01/24/19 10:31 Cyclobenzaprine HCl (Flexeril) 10 mg PO TID PRN PRN Reason: Spasms Docusate Sodium (Colace) 100 mg PO BID [facility] Famotidine (Pepcid) 20 mg PO Q12H [facility] Lactated Ringer's (Ringers, Lactated) 1,000 mls @ 125 mls/hr IV ASDIRECTED [facility] Cefazolin Sodium/Dextrose 2 gm (/ Premix) 50 mls @ 100 mls/hr IV Q8H [facility] Stop: 01/24/19 23:59 Ketorolac Tromethamine (Toradol) 15 mg IVPUSH Q6H PRN PRN Reason: Pain Lidocaine/Sodium Bicarbonate (Buffered Lidocaine 1% In Ns 8.4%) 0.25 ml IDERM ONETIME PRN PRN Reason: Prior to IV Start Stop: 01/24/19 18:00 Magnesium Hydroxide (Milk Of Magnesia) 30 ml PO BID PRN PRN Reason: Constipation Morphine Sulfate (Morphine) 2 mg IVPUSH Q2H PRN PRN Reason: Breakthrough Pain Naloxone HCl (Narcan) 0.1 mg IVPUSH Q5M PRN PRN Reason: Oversedation Ondansetron HCl (Zofran) 4 mg IVPUSH Q6H PRN PRN Reason: Nausea/Vomiting Oxycodone HCl (Oxycontin) 10 mg PO ONETIME [facility] Stop: 01/24/19 16:00 Last Admin: 01/24/19 09:20 Dose: 10 mg Oxycodone/Acetaminophen (Percocet 325-5 Mg) 1 - 2 tab PO Q4H PRN PRN Reason: Pain Pregabalin (Lyrica) 50 mg PO ONETIME [facility] Stop: 01/24/19 14:00 Last Admin: 01/24/19 09:21 Dose: 50 mg Rivaroxaban (Xarelto) 10 mg PO DAILY [facility] Senna (Senna) 8.6 mg PO BID PRN PRN Reason: Constipation Sodium Chloride (Saline Flush) 10 ml FLUSH ASDIRECTED PRN PRN Reason: Keep Vein Open Discontinued Medications Bupivacaine HCl/Dextrose (Marcaine 0.75% Spinal) Confirm Administered Dose 2 ml .ROUTE .ST-MED ONE Stop: 01/24/19 05:56 Cefazolin Sodium (Ancef) Confirm Administered Dose 2 gm .ROUTE .ST-MED ONE Stop: 01/24/19 06:07 Fentanyl (Sublimaze) Confirm Administered Dose 100 mcg .ROUTE .ST-MED ONE Stop: 01/24/19 06:08 Lidocaine HCl (Xylocaine-Mpf 1%) Confirm Administered Dose 10 mls @ as directed .ROUTE .ST-MED ONE Stop: 01/24/19 06:07 Lactated Ringer's (Ringers, Lactated) Confirm Administered Dose 1,000 mls @ as directed .ROUTE .ST-MED ONE Stop: 01/24/19 06:07 Lidocaine HCl (Xylocaine-Mpf 1%) Confirm Administered Dose 2 mls @ as directed .ROUTE .[facility]-MED ONE Stop: 01/24/19 06:11 Lidocaine HCl (Xylocaine-Mpf 1%) Confirm Administered Dose 2 mls @ as directed .ROUTE .ST-MED ONE Stop: 01/24/19 06:11 Ketamine HCl (Ketalar) Confirm Administered Dose 500 mg .ROUTE .ST-MED ONE Stop: 01/24/19 06:09 Ketorolac Tromethamine (Toradol) Confirm Administered Dose 30 mg .ROUTE .ST- MED ONE Stop: 01/24/19 06:07 Midazolam HCl (Versed 1 Mg/Ml) Confirm Administered Dose 2 mg .ROUTE .ST-MED ONE Stop: 01/24/19 06:08 Ondansetron HCl (Zofran) Confirm Administered Dose 4 mg .ROUTE .ST-MED ONE Stop: 01/24/19 06:07 Phenylephrine HCl (Phenylephrine In Ns 100 Mcg/Ml) Confirm Administered Dose 1 mg .ROUTE .ST-MED ONE Stop: 01/24/19 06:07 Propofol (Diprivan 20 Ml) Confirm Administered Dose 400 mg .ROUTE .ST-MED ONE Stop: 01/24/19 06:08
[2019-01-24] MEDS ORDERED: Vancomycin 1 GM SDV ONE (09:59)
[2019-01-24] MEDS ORDERED: ceFAZolin 1 GM Vial ONE (09:59)
[2019-01-24] MEDS ORDERED: Iodine/Sodium Iodide 2% Tincture 30 ML Bottle ONE (09:59)
[2019-01-24] MEDS ORDERED: Bupivacaine 0.25% 30 ML SDV ONE (09:59)
[2019-01-24] MEDS ORDERED: HYDROmorphone 0.5 MG/0.5 ML Syringe ONE (10:09)
[2019-01-24] MEDS ORDERED: Albuterol 0.083% 2.5 MG/3 ML Neb Soln ONE (10:13)
[2019-01-24] MEDS ORDERED: Atropine 0.4 MG/ML SDV ONE (10:37)
[2019-01-24] MEDS ORDERED: ePHEDrine/Normal Saline 25 MG/5 ML Syringe ONE (10:38)
[2019-01-24] MEDS ORDERED: Albuterol 0.083% 2.5 MG/3 ML Neb Soln NEB ONE (10:45)
[2019-01-24] MEDS ORDERED: fentaNYL 100 MCG/2 ML SDV IVPUSH PRN (10:57)
[2019-01-24] MEDS ORDERED: Ondansetron 4 MG/2 ML SDV IVPUSH PRN (10:57)
[2019-01-24] MEDS ORDERED: Albuterol 0.083% 2.5 MG/3 ML Neb Soln NEB PRN (10:57)
[2019-01-24] MEDS ORDERED: diphenhydrAMINE 50 MG/ML SDV IVPUSH PRN (10:57)
[2019-01-24] MEDS ORDERED: ePHEDrine 50 MG/ML SDV IVPUSH PRN (10:57)
[2019-01-24] MEDS ORDERED: HYDROmorphone 0.5 MG/0.5 ML Syringe IVPUSH PRN (10:57)
[2019-01-24] MEDS ORDERED: Phenylephrine 1 MG in Sodium Chloride 0.9% 10 ML IV SCH (11:00)
[2019-01-24] MEDS ORDERED: Sodium Chloride 0.9% 1,000 ML ONE (11:32)
[2019-01-24] MEDS: Morphine 8 MG, EPINEPHrine 0.3 MG, Cefuroxime 750 MG, Ketorolac 30 MG, Sodium Chloride ... ONE ×10 (11:56→15:53)
--- NOTE | 2019-01-24 12:35 | PCM.POSTAN ---
POST ANESTHESIA ASSESSMENT - MENTAL STATUS Mental Status: Alert - VITAL SIGNS Pulse Rate: 71 SaO2: 94 (2LPM nasal cannula) Resp Rate: 14 Blood Pressure: 103/78 Temperature: 36.5 C - RESPIRATORY Respiratory Status: Respiratory Rate WNL, Airway Patent, O2 Saturation Stable, Supplemental Oxygen - CARDIOVASCULAR CV Status: Pulse Rate WNL, Blood Pressure Stable - GASTROINTESTINAL GI Status: No Symptoms - POST OP HYDRATION Hydration Status: Adequate & Stable
--- NOTE | 2019-01-24 13:07 | CR ---
Pelvis and right hip: AP view of the pelvis was obtained as well as AP and lateral views of the right hip. Comparison: Prior pelvis and left hip exam of 07/31/18. Bilateral hip prosthesis are seen. Right hip prosthesis has been recently placed. Soft tissue air is noted. Components of both prosthesis are normal. Degenerative change is partially visualized within the lumbar spine. Mild vascular calcification is seen. Impression: 1. Satisfactory radiographic appearance of recently placed right knee prosthesis. 2. Other incidental findings. Diagnostic code #2
--- NOTE | 2019-01-24 13:32 | PCM.OPNOTE ---
- General Post-Op/Procedure Note Date of Surgery/Procedure: 01/24/19 Operative Procedure(s): right total hip arthroplasty Pre Op Diagnosis: right hip osteoarthrosis Post-Op Diagnosis: Same Anesthesia Technique: Local, MAC, Spinal Primary Surgeon: Carroll Hale Anesthesia Provider: Vaishnavi Espinoza Edge Trimmer Mechanic: Ailyn Obrien Edge Trimmer Mechanic: Alejandra Landry EBL in mLs: 150 Complications: None Condition: Good Free Text/Narrative:: size 56 5 36+5
--- NOTE | 2019-01-24 14:00 | OR ---
DATE OF OPERATION: 01/24/2019 SURGEON: Carroll Hale MD OPERATION PERFORMED: Right total hip arthroplasty. PREOPERATIVE DIAGNOSIS: Right hip osteoarthrosis. POSTOPERATIVE DIAGNOSIS: Right hip osteoarthrosis. ANESTHESIA: Local MAC with spinal. ANESTHESIA PROVIDER: Vaishnavi Espinoza CRNA ASSISTANTS: Ailyn Obrien PA-C and Alejandra Landry LPN. ESTIMATED BLOOD LOSS: 150 mL. COMPLICATIONS: None. CONDITION: Stable. IMPLANTS: 1. [place] size 56 mm solid Tritanium acetabular cup. 2. [place] size 5 Accolade II stem 127 degrees. 3. [place] size 36 +5 mm Biolox femoral head. DESCRIPTION OF PROCEDURE: The patient was identified in the preoperative holding area where proper site was marked and identified by the surgeon. The patient was taken back to the operating theater, where after adequate anesthesia, the patient was placed in a left lateral decubitus position. Axillary roll was placed. All bony prominences were well padded. The patient then had pegs placed and they were well padded. The patient's gluteal fold was parallel to the floor. Right hip was then sterilely prepped and draped in the usual sterile fashion. OR time-out was performed. The patient received 2 g IV Ancef. Standard incision was centered over the greater trochanter, and this was taken down to the IT band and gluteal fascia, which was incised along the incisional length. Charnley retractor was then placed. Takedown of the short external rotators was then done from the level of the piriformis down to the lesser trochanter. Hip was then dislocated and neck cut was completed and found to be adequate. At this time, attention was turned to the acetabulum. Anterior posterior acetabular retractors were placed. The labrum was circumferentially removed at this point along with the pulvinar. Starting with a 48 reamer, I was able to ream up to a 56, which was found to have a good purchase. I did ream medially just to the bottom of the cotyloid. At this point, a 56 mm Tritanium acetabular cup was impacted into place in roughly 10 to 15 degrees of anteversion and 45 degrees of abduction. It was found to have good fixation. At this time, a 36 mm flat liner was then impacted into place. Attention was turned to the femur. Femoral elevator was placed. Box chisel was used out laterally. Starter awl was placed down the canal. Starting with the 0 broach, I was able to broach up to a size 5 which was found to be rotationally and vertically stable. We trialed a 36 +5 at this point and was found to have adequate congregational of leg lengths and was stable throughout range of motion. At this time, bone hook was used to dislocate the hip and a size 5 Accolade II stem was impacted into place with a 36 +5 Biolox head which was impacted into place. At this time, hip was relocated. A #5 Ethibond suture was used for closure of the short external rotators and capsule. Dilute Betadine solution 1 L was irrigated through the hip along with 3 L of pulse lavage irrigation with Ancef. Topical tranexamic acid as well as vancomycin powder was placed, and a periarticular injection was completed. A #2 barbed suture was used for closure of the IT band and gluteal fascia. A 2-0 Vicryl was used subcutaneously and Prineo was used for the skin. The patient had a sterile soft dressing applied and sent to the PACU in stable condition. MMODAL /[id number]
--- NOTE | 2019-01-24 15:50 | PCM.CONSN ---
- General Info Date of Service: 01/24/19 Subjective Update: 63 year old male with right hip OA, presents S/P right total hip arthroplasty; POD 0. Functional Status: Reports: Pain Controlled, Tolerating Diet, Urinating - Review of Systems General: Reports: No Symptoms HEENT: Reports: No Symptoms Pulmonary: Reports: No Symptoms Cardiovascular: Reports: No Symptoms Gastrointestinal: Reports: No Symptoms Genitourinary: Reports: No Symptoms Musculoskeletal: Reports: No Symptoms Skin: Reports: No Symptoms Neurological: Reports: No Symptoms Psychiatric: Reports: No Symptoms - Patient Data Vitals - Most Recent: Last Vital Signs Temp 36.2 C 01/24/19 13:15 Pulse 71 01/24/19 12:35 Resp 12 01/24/19 13:15 BP 122/70 01/24/19 13:15 Pulse Ox 94 L 01/24/19 13:15 Weight - Most Recent: 84.998 kg I&O - Last 24 Hours: Intake & Output 01/24/19 01/24/19 01/24/19 06:59 14:59 22:59 Intake Total 220 240 Balance 220 240 Lab Results Last 24 Hours: Laboratory Results - last 24 hr 01/24/19 Range/Units 09:20 Blood Type O POSITIVE Gel Antibody Screen Negative Med Orders - Current: Current Medications Amlodipine Besylate (Norvasc) 5 mg PO DAILY [facility] Bisacodyl (Dulcolax) 5 mg PO DAILY PRN PRN Reason: Constipation Cholecalciferol (Vitamin D3) 5,000 unit PO DAILY [facility] Cyclobenzaprine HCl (Flexeril) 10 mg PO TID PRN PRN Reason: Spasms Diphenhydramine HCl (Benadryl) 25 mg IVPUSH Q6H PRN PRN Reason: pruritis Stop: 01/24/19 16:00 Docusate Sodium (Colace) 100 mg PO BID [facility] Famotidine (Pepcid) 20 mg PO Q12H [facility] Lactated Ringer's (Ringers, Lactated) 1,000 mls @ 125 mls/hr IV ASDIRECTED [facility] Last Admin: 01/24/19 09:15 Dose: 125 mls/hr Cefazolin Sodium/Dextrose 2 gm (/ Premix) 50 mls @ 100 mls/hr IV Q8H [facility] Stop: 01/25/19 10:29 Ketorolac Tromethamine (Toradol) 15 mg IVPUSH Q6H PRN PRN Reason: Pain Levothyroxine Sodium (Levothroid) 137 mcg PO DAILY@0600 [facility] Lisinopril (Prinivil) 10 mg PO DAILY [facility] Magnesium Hydroxide (Milk Of Magnesia) 30 ml PO BID PRN PRN Reason: Constipation Morphine Sulfate (Morphine) 2 mg IVPUSH Q2H PRN PRN Reason: Breakthrough Pain Naloxone HCl (Narcan) 0.1 mg IVPUSH Q5M PRN PRN Reason: Oversedation Ondansetron HCl (Zofran) 4 mg IVPUSH Q6H PRN PRN Reason: Nausea/Vomiting Oxycodone/Acetaminophen (Percocet 325-5 Mg) 1 - 2 tab PO Q4H PRN PRN Reason: Pain Rivaroxaban (Xarelto) 10 mg PO DAILY [facility] Rosuvastatin Calcium (Crestor) 20 mg PO DAILY [facility] Senna (Senna) 8.6 mg PO BID PRN PRN Reason: Constipation Sodium Chloride (Saline Flush) 10 ml FLUSH ASDIRECTED PRN PRN Reason: Keep Vein Open Discontinued Medications Acetaminophen (Tylenol) 975 mg PO ONETIME [facility] Stop: 01/24/19 14:00 Last Admin: 01/24/19 09:21 Dose: 975 mg Albuterol (Proventil Neb Soln) 2.5 mg NEB ONETIME ONE Stop: 01/24/19 10:46 Albuterol (Proventil Neb Soln) Confirm Administered Dose 2.5 mg .ROUTE .STK-MED ONE Stop: 01/24/19 10:14 Albuterol (Proventil Neb Soln) 2.5 mg NEB ONETIME PRN PRN Reason: improve oxygenation Stop: 01/24/19 16:00 Aspirin (Ecotrin) 325 mg PO BID [facility] Atropine Sulfate (Atropine) Confirm Administered Dose 0.4 mg .ROUTE .STK-MED ONE Stop: 01/24/19 10:38 Bupivacaine HCl (Marcaine 0.25%) Confirm Administered Dose 30 ml .ROUTE .STK- MED ONE Stop: 01/24/19 10:00 Last Admin: 01/24/19 11:57 Dose: 30 ml Bupivacaine HCl/Dextrose (Marcaine 0.75% Spinal) Confirm Administered Dose 2 ml .ROUTE .STK-MED ONE Stop: 01/24/19 05:56 Cefazolin Sodium (Ancef) Confirm Administered Dose 2 gm .ROUTE .STK-MED ONE Stop: 01/24/19 06:07 Last Admin: 01/24/19 11:52 Dose: 2 gm Cefazolin Sodium (Ancef) Confirm Administered Dose 2 gm .ROUTE .STK-MED ONE Stop: 01/24/19 10:00 Morphine Sulfate 8 mg/Epinephrine HCl 0.3 mg/Cefuroxime Sodium 750 mg/Ketorolac Tromethamine 30 mg/Sodium Chloride 27.9 ml 0 mg .XX ONETIME ONE Stop: 01/24/19 10:31 Last Admin: 01/24/19 11:56 Dose: 788.3 mg Ephedrine Sulfate (Ephedrine In Ns) Confirm Administered Dose 25 mg .ROUTE .STK- MED ONE Stop: 01/24/19 10:39 Ephedrine Sulfate (Ephedrine Sulfate) 5 mg IVPUSH ASDIRECTED PRN PRN Reason: Hypotension Stop: 01/24/19 16:00 Fentanyl (Sublimaze) Confirm Administered Dose 100 mcg .ROUTE .STK-MED ONE Stop: 01/24/19 06:08 Fentanyl (Sublimaze) 50 mcg IVPUSH Q5M PRN PRN Reason: Pain Stop: 01/24/19 15:00 Hydromorphone HCl (Dilaudid) Confirm Administered Dose 0.5 mg .ROUTE .STK-MED ONE Stop: 01/24/19 10:10 Hydromorphone HCl (Dilaudid) 0.5 mg IVPUSH Q15M PRN PRN Reason: Pain (severe 7-10) Stop: 01/24/19 15:00 Lidocaine HCl (Xylocaine-Mpf 1%) Confirm Administered Dose 10 mls @ as directed .ROUTE .STK-MED ONE Stop: 01/24/19 06:07 Lactated Ringer's (Ringers, Lactated) Confirm Administered Dose 1,000 mls @ as directed .ROUTE .STK-MED ONE Stop: 01/24/19 06:07 Lidocaine HCl (Xylocaine-Mpf 1%) Confirm Administered Dose 2 mls @ as directed .ROUTE .STK-MED ONE Stop: 01/24/19 06:11 Lidocaine HCl (Xylocaine-Mpf 1%) Confirm Administered Dose 2 mls @ as directed .ROUTE .STK-MED ONE Stop: 01/24/19 06:11 Phenylephrine HCl 1 mg/ Sodium (Chloride) 10.1 mls @ 1 mls/sec IV TITRATE [facility]; Protocol Stop: 01/24/19 15:00 Sodium Chloride (Normal Saline) Confirm Administered Dose 1,000 mls @ as directed .ROUTE .STK-MED ONE Stop: 01/24/19 11:33 Iodine (Iodine 2% Mild Tincture) Confirm Administered Dose 30 ml .ROUTE .STK- MED ONE Stop: 01/24/19 10:00 Last Admin: 01/24/19 11:50 Dose: 18 ml Ketamine HCl (Ketalar) Confirm Administered Dose 500 mg .ROUTE .STK-MED ONE Stop: 01/24/19 06:09 Ketorolac Tromethamine (Toradol) Confirm Administered Dose 30 mg .ROUTE .ST- MED ONE Stop: 01/24/19 06:07 Lidocaine/Sodium Bicarbonate (Buffered Lidocaine 1% In Ns 8.4%) 0.25 ml IDERM ONETIME PRN PRN Reason: Prior to IV Start Stop: 01/24/19 18:00 Last Admin: 01/24/19 09:15 Dose: 0.25 ml Midazolam HCl (Versed 1 Mg/Ml) Confirm Administered Dose 2 mg .ROUTE .STK-MED ONE Stop: 01/24/19 06:08 Ondansetron HCl (Zofran) Confirm Administered Dose 4 mg .ROUTE .STK-MED ONE Stop: 01/24/19 06:07 Ondansetron HCl (Zofran) 4 mg IVPUSH ONETIME PRN PRN Reason: Nausea/Vomiting Stop: 01/24/19 16:00 Oxycodone HCl (Oxycontin) 10 mg PO ONETIME [facility] Stop: 01/24/19 16:00 Last Admin: 01/24/19 09:20 Dose: 10 mg Phenylephrine HCl (Phenylephrine In Ns 100 Mcg/Ml) Confirm Administered Dose 1 mg .ROUTE .STK-MED ONE Stop: 01/24/19 06:07 Pregabalin (Lyrica) 50 mg PO ONETIME [facility] Stop: 01/24/19 14:00 Last Admin: 01/24/19 09:21 Dose: 50 mg Propofol (Diprivan 20 Ml) Confirm Administered Dose 400 mg .ROUTE .STK-MED ONE Stop: 01/24/19 06:08 Tranexamic Acid (Cyklokapron) Confirm Administered Dose 1,000 mg .ROUTE .STK- MED ONE Stop: 01/24/19 10:00 Last Admin: 01/24/19 11:58 Dose: 1,000 mg Vancomycin HCl (Vancomycin) Confirm Administered Dose 1 gm .ROUTE .STK-MED ONE Stop: 01/24/19 10:00 Last Admin: 01/24/19 11:58 Dose: 1 gm - Exam Quality Assessment: Urine Catheter, DVT Prophylaxis General: Alert, Oriented, Cooperative, No Acute Distress HEENT: Pupils Equal, Pupils Reactive, EOMI Neck: Trachea Midline, No JVD Lungs: Clear to Auscultation, Normal Respiratory Effort Cardiovascular: Regular Rate, Irregular Rhythm GI/Abdominal Exam: Normal Bowel Sounds, Soft, Non-Tender, No Organomegaly, No Distention (Male) Exam: Deferred Back Exam: Normal Inspection Extremities: Normal Inspection, Non-Tender, Normal Capillary Refill Skin: Warm Neurological: No New Focal Deficit Psy/Mental Status: Alert, Normal Affect, Normal Mood Consult PN Assessment/Plan POD#: 0 Procedures: Procedures ASSAY OF TROPONIN QUANT (08/06/18) C-REACTIVE PROTEIN (08/06/18) COLONOSCOPY AND BIOPSY (10/10/16) COMPLETE CBC W/AUTO DIFF WBC (08/06/18) COMPREHEN METABOLIC PANEL (08/06/18) CREATINE MB FRACTION (08/06/18) CT ANGIOGRAPHY CHEST (08/06/18) CT HEAD/BRAIN W/O & W/DYE (02/24/14) DRAIN/INJ JOINT/BURSA W/O US (10/01/18) DXA BONE DENSITY AXIAL (07/09/18) ECG MONIT/REPRT UP TO 48 HRS (02/22/14) ELECTROCARDIOGRAM TRACING (08/06/18) EMERGENCY DEPT VISIT (08/06/18) EXTREMITY STUDY (08/06/18) FIBRIN DEGRADATION QUANT (08/06/18) HYDRATE IV INFUSION ADD-ON (08/06/18) MR-STAPH DNA AMP PROBE (01/12/19) MRI LUMBAR SPINE W/O DYE (04/15/18) ROUTINE VENIPUNCTURE (08/06/18) THER/PROPH/DIAG INJ IV PUSH (08/06/18) TISSUE EXAM BY PATHOLOGIST (10/10/16) TX/PRO/DX INJ NEW DRUG ADDON (08/06/18) URINALYSIS AUTO W/SCOPE (08/06/18) (1) HLD (hyperlipidemia) SNOMED Code(s): 52332666 Code(s): E78.5 - HYPERLIPIDEMIA, UNSPECIFIED Priority: Low Current Visit : No Qualifiers: Hyperlipidemia type: unspecified Qualified Code(s): E78.5 - Hyperlipidemia , unspecified (2) HTN (hypertension) SNOMED Code(s): 88288901 Code(s): I10 - ESSENTIAL (PRIMARY) HYPERTENSION Priority: Medium Current Visit: No Qualifiers: Hypertension type: unspecified Qualified Code(s): I10 - Essential (primary ) hypertension (3) Hypothyroidism SNOMED Code(s): 05353155 Code(s): E03.9 - HYPOTHYROIDISM, UNSPECIFIED Priority: Medium Current Visit: No Qualifiers: Hypothyroidism type: unspecified Qualified Code(s): E03.9 - Hypothyroidism , unspecified (4) Osteoarthritis SNOMED Code(s): 142440255 Code(s): M19.90 - UNSPECIFIED OSTEOARTHRITIS, UNSPECIFIED SITE Priority: High Current Visit: No Qualifiers: Osteoarthritis location: hip Osteoarthritis type: primary Laterality: left Qualified Code(s): M16.12 - Unilateral primary osteoarthritis, left hip (5) S/P hip replacement SNOMED Code(s): 906396409, 159459143, 870062770, 684303041 Code(s): Z96.649 - PRESENCE OF UNSPECIFIED ARTIFICIAL HIP JOINT Current Visit: No (6) S/P total hip arthroplasty SNOMED Code(s): 340135117510, 751847782343 Code(s): Z96.649 - PRESENCE OF UNSPECIFIED ARTIFICIAL HIP JOINT Priority: High Current Visit: No Qualifiers: Laterality: left Qualified Code(s): Z96.642 - Presence of left artificial hip joint (7) Tobacco use disorder SNOMED Code(s): 345335038 Code(s): F17.200 - NICOTINE DEPENDENCE, UNSPECIFIED, UNCOMPLICATED Priority : Medium Current Visit: No Problem List Initiated/Reviewed/Updated: Yes My Orders Last 24 Hours: My Active Orders 01/24/19 15:17 EKG Documentation Completion [RC] ASDIRECTED EKG 12 Lead [EK] Routine Plan: Impression/Plan: Right hip OA, S/P right total hip arthroplasty ECG atrial bigeminy HTN HLD Hypothyroidism Pain meds Home meds DVT prophylaxis Daily Labs Consult PT/OT
[2019-01-24] MEDS: Acetaminophen/oxyCODONE 325-5 MG Tab PO PRN ×2 (15:59→20:42)
[2019-01-24] MEDS: ceFAZolin 2 GM in Premix Bag 1 BAG IV SCH (17:39)
[2019-01-24] MEDS: Ketorolac 15 MG/ML SDV IVPUSH PRN (18:42)
[2019-01-24] MEDS: Docusate Sodium 100 MG Cap PO SCH (20:41)
[2019-01-24] MEDS: Famotidine 20 MG Tab PO SCH (20:42)
[2019-01-25] MEDS: Acetaminophen/oxyCODONE 325-5 MG Tab PO PRN ×2 (02:00→06:27)
[2019-01-25] MEDS: Ketorolac 15 MG/ML SDV IVPUSH PRN (02:00)
[2019-01-25] MEDS: ceFAZolin 2 GM in Premix Bag 1 BAG IV SCH ×2 (02:01→09:23)
--- NOTE | 2019-01-25 07:02 | PCM.CONSN ---
- General Info Date of Service: 01/25/19 Subjective Update: In to see Juan. He is sitting up in the chair eating. He reports his leg is more painful and stiff than last time but overall he is doing well. No nursing or patient concerns. Functional Status: Reports: Pain Controlled, Tolerating Diet, Ambulating, Urinating, Incentive Spirometry. Denies: New Symptoms - Review of Systems General: Reports: No Symptoms. Denies: Fever, Weakness, Fatigue, Malaise, Chills HEENT: Reports: No Symptoms. Denies: Headaches, Sore Throat Pulmonary: Reports: No Symptoms. Denies: Shortness of Breath, Pleuritic Chest Pain, Cough, Sputum, Wheezing Cardiovascular: Reports: No Symptoms. Denies: Chest Pain, Palpitations, Dyspnea on Exertion Gastrointestinal: Reports: No Symptoms. Denies: Abdominal Pain, Constipation, Diarrhea, Nausea, Vomiting Genitourinary: Reports: No Symptoms. Denies: Pain Musculoskeletal: Reports: Leg Pain Skin: Reports: No Symptoms Neurological: Reports: No Symptoms. Denies: Confusion Psychiatric: Reports: No Symptoms - Patient Data Vitals - Most Recent: Last Vital Signs Temp 98.2 F 01/25/19 04:02 Pulse 70 01/25/19 04:02 Resp 14 01/25/19 04:02 BP 119/81 01/25/19 04:02 Pulse Ox 94 L 01/25/19 04:02 Weight - Most Recent: 196 lb 3.2 oz I&O - Last 24 Hours: Intake & Output 01/24/19 01/24/19 01/25/19 14:59 22:59 06:59 Intake Total 220 2080 2050 Output Total 350 2100 Balance 220 1730 -50 Lab Results Last 24 Hours: Laboratory Results - last 24 hr 01/24/19 01/25/19 01/25/19 Range/Units 09:20 04:23 04:23 WBC 9.02 (4.23-9.07) K/mm3 RBC 4.23 L (4.63-6.08) M/mm3 Hgb 13.7 (13.7-17.5) gm/L Hct 42.5 (40.1-51.0) % MCV 100.5 H (79.0-92.2) fl MCH 32.4 H (25.7-32.2) pg MCHC 32.2 (32.2-35.5) g/dl RDW Std Deviation 51.3 H (35.1-43.9) fL Plt Count 203 (163-337) K/mm3 MPV 9.7 (9.4-12.3) fl Sodium 136 (136-145) mEq/L Potassium 4.4 (3.5-5.1) mEq/L Chloride 102 (98-107) mEq/L Carbon Dioxide 25 (21-32) mEq/L Anion Gap 13.4 (5-15) BUN 17 (7-18) mg/dL Creatinine 1.2 (0.7-1.3) mg/dL Est Cr Clr Drug Dosing 56.86 mL/min Estimated GFR (MDRD) > 60 (>60) mL/min BUN/Creatinine Ratio 14.2 (14-18) Glucose 109 (80-115) mg/dL Calcium 8.2 L (8.5-10.1) mg/dL Magnesium (1.8-2.4) mg/dl Total Bilirubin 0.4 (0.2-1.0) mg/dL AST 53 H (15-37) U/L ALT 55 (16-63) U/L Alkaline Phosphatase 79 (46-116) U/L C-Reactive Protein (<1.0) mg/dL Total Protein 6.6 (6.4-8.2) g/dl Albumin 3.3 L (3.4-5.0) g/dl Globulin 3.3 gm/dL Albumin/Globulin Ratio 1.0 (1-2) Blood Type O POSITIVE Gel Antibody Screen Negative 01/25/19 Range/Units 04:23 WBC (4.23-9.07) K/mm3 RBC (4.63-6.08) M/mm3 Hgb (13.7-17.5) gm/L Hct (40.1-51.0) % MCV (79.0-92.2) fl MCH (25.7-32.2) pg MCHC (32.2-35.5) g/dl RDW Std Deviation (35.1-43.9) fL Plt Count (163-337) K/mm3 MPV (9.4-12.3) fl Sodium (136-145) mEq/L Potassium (3.5-5.1) mEq/L Chloride (98-107) mEq/L Carbon Dioxide (21-32) mEq/L Anion Gap (5-15) BUN (7-18) mg/dL Creatinine (0.7-1.3) mg/dL Est Cr Clr Drug Dosing mL/min Estimated GFR (MDRD) (>60) mL/min BUN/Creatinine Ratio (14-18) Glucose (80-115) mg/dL Calcium (8.5-10.1) mg/dL Magnesium 1.8 (1.8-2.4) mg/dl Total Bilirubin (0.2-1.0) mg/dL AST (15-37) U/L ALT (16-63) U/L Alkaline Phosphatase (46-116) U/L C-Reactive Protein 1.5 H* (<1.0) mg/dL Total Protein (6.4-8.2) g/dl Albumin (3.4-5.0) g/dl Globulin gm/dL Albumin/Globulin Ratio (1-2) Blood Type Gel Antibody Screen Med Orders - Current: Current Medications Amlodipine Besylate (Norvasc) 5 mg PO DAILY [facility] Bisacodyl (Dulcolax) 5 mg PO DAILY PRN PRN Reason: Constipation Cholecalciferol (Vitamin D3) 5,000 unit PO DAILY [facility] Cyclobenzaprine HCl (Flexeril) 10 mg PO TID PRN PRN Reason: Spasms Docusate Sodium (Colace) 100 mg PO BID [facility] Last Admin: 01/24/19 20:41 Dose: 100 mg Famotidine (Pepcid) 20 mg PO Q12H [facility] Last Admin: 01/24/19 20:42 Dose: 20 mg Lactated Ringer's (Ringers, Lactated) 1,000 mls @ 125 mls/hr IV ASDIRECTED [facility] Last Admin: 01/24/19 09:15 Dose: 125 mls/hr Cefazolin Sodium/Dextrose 2 gm (/ Premix) 50 mls @ 100 mls/hr IV Q8H [facility] Stop: 01/25/19 10:29 Last Admin: 01/25/19 02:01 Dose: 100 mls/hr Ketorolac Tromethamine (Toradol) 15 mg IVPUSH Q6H PRN PRN Reason: Pain Last Admin: 01/25/19 02:00 Dose: 15 mg Levothyroxine Sodium (Levothroid) 137 mcg PO DAILY@0600 [facility] Last Admin: 01/25/19 06:27 Dose: 137 mcg Lisinopril (Prinivil) 10 mg PO DAILY [facility] Magnesium Hydroxide (Milk Of Magnesia) 30 ml PO BID PRN PRN Reason: Constipation Morphine Sulfate (Morphine) 2 mg IVPUSH Q2H PRN PRN Reason: Breakthrough Pain Naloxone HCl (Narcan) 0.1 mg IVPUSH Q5M PRN PRN Reason: Oversedation Ondansetron HCl (Zofran) 4 mg IVPUSH Q6H PRN PRN Reason: Nausea/Vomiting Oxycodone/Acetaminophen (Percocet 325-5 Mg) 1 - 2 tab PO Q4H PRN PRN Reason: Pain Last Admin: 01/25/19 06:27 Dose: 2 tab Rivaroxaban (Xarelto) 10 mg PO DAILY [facility] Rosuvastatin Calcium (Crestor) 20 mg PO DAILY [facility] Senna (Senna) 8.6 mg PO BID PRN PRN Reason: Constipation Sodium Chloride (Saline Flush) 10 ml FLUSH ASDIRECTED PRN PRN Reason: Keep Vein Open Discontinued Medications Acetaminophen (Tylenol) 975 mg PO ONETIME [facility] Stop: 01/24/19 14:00 Last Admin: 01/24/19 09:21 Dose: 975 mg Albuterol (Proventil Neb Soln) 2.5 mg NEB ONETIME ONE Stop: 01/24/19 10:46 Albuterol (Proventil Neb Soln) Confirm Administered Dose 2.5 mg .ROUTE .STK-MED ONE Stop: 01/24/19 10:14 Albuterol (Proventil Neb Soln) 2.5 mg NEB ONETIME PRN PRN Reason: improve oxygenation Stop: 01/24/19 16:00 Aspirin (Ecotrin) 325 mg PO BID [facility] Atropine Sulfate (Atropine) Confirm Administered Dose 0.4 mg .ROUTE .STK-MED ONE Stop: 01/24/19 10:38 Bupivacaine HCl (Marcaine 0.25%) Confirm Administered Dose 30 ml .ROUTE .STK- MED ONE Stop: 01/24/19 10:00 Last Admin: 01/24/19 11:57 Dose: 30 ml Bupivacaine HCl/Dextrose (Marcaine 0.75% Spinal) Confirm Administered Dose 2 ml .ROUTE .STK-MED ONE Stop: 01/24/19 05:56 Cefazolin Sodium (Ancef) Confirm Administered Dose 2 gm .ROUTE .STK-MED ONE Stop: 01/24/19 06:07 Last Admin: 01/24/19 11:52 Dose: 2 gm Cefazolin Sodium (Ancef) Confirm Administered Dose 2 gm .ROUTE .STK-MED ONE Stop: 01/24/19 10:00 Morphine Sulfate 8 mg/Epinephrine HCl 0.3 mg/Cefuroxime Sodium 750 mg/Ketorolac Tromethamine 30 mg/Sodium Chloride 27.9 ml 0 mg .XX ONETIME ONE Stop: 01/24/19 10:31 Last Admin: 01/24/19 15:53 Dose: Not Given Diphenhydramine HCl (Benadryl) 25 mg IVPUSH Q6H PRN PRN Reason: pruritis Stop: 01/24/19 16:00 Ephedrine Sulfate (Ephedrine In Ns) Confirm Administered Dose 25 mg .ROUTE .STK- MED ONE Stop: 01/24/19 10:39 Ephedrine Sulfate (Ephedrine Sulfate) 5 mg IVPUSH ASDIRECTED PRN PRN Reason: Hypotension Stop: 01/24/19 16:00 Fentanyl (Sublimaze) Confirm Administered Dose 100 mcg .ROUTE .STK-MED ONE Stop: 01/24/19 06:08 Fentanyl (Sublimaze) 50 mcg IVPUSH Q5M PRN PRN Reason: Pain Stop: 01/24/19 15:00 Hydromorphone HCl (Dilaudid) Confirm Administered Dose 0.5 mg .ROUTE .STK-MED ONE Stop: 01/24/19 10:10 Hydromorphone HCl (Dilaudid) 0.5 mg IVPUSH Q15M PRN PRN Reason: Pain (severe 7-10) Stop: 01/24/19 15:00 Lidocaine HCl (Xylocaine-Mpf 1%) Confirm Administered Dose 10 mls @ as directed .ROUTE .STK-MED ONE Stop: 01/24/19 06:07 Lactated Ringer's (Ringers, Lactated) Confirm Administered Dose 1,000 mls @ as directed .ROUTE .STK-MED ONE Stop: 01/24/19 06:07 Lidocaine HCl (Xylocaine-Mpf 1%) Confirm Administered Dose 2 mls @ as directed .ROUTE .STK-MED ONE Stop: 01/24/19 06:11 Lidocaine HCl (Xylocaine-Mpf 1%) Confirm Administered Dose 2 mls @ as directed .ROUTE .STK-MED ONE Stop: 01/24/19 06:11 Phenylephrine HCl 1 mg/ Sodium (Chloride) 10.1 mls @ 1 mls/sec IV TITRATE [place]; Protocol Stop: 01/24/19 15:00 Sodium Chloride (Normal Saline) Confirm Administered Dose 1,000 mls @ as directed .ROUTE .STK-MED ONE Stop: 01/24/19 11:33 Iodine (Iodine 2% Mild Tincture) Confirm Administered Dose 30 ml .ROUTE .STK- MED ONE Stop: 01/24/19 10:00 Last Admin: 01/24/19 11:50 Dose: 18 ml Ketamine HCl (Ketalar) Confirm Administered Dose 500 mg .ROUTE .STK-MED ONE Stop: 01/24/19 06:09 Ketorolac Tromethamine (Toradol) Confirm Administered Dose 30 mg .ROUTE .STK- MED ONE Stop: 01/24/19 06:07 Lidocaine/Sodium Bicarbonate (Buffered Lidocaine 1% In Ns 8.4%) 0.25 ml IDERM ONETIME PRN PRN Reason: Prior to IV Start Stop: 01/24/19 18:00 Last Admin: 01/24/19 09:15 Dose: 0.25 ml Midazolam HCl (Versed 1 Mg/Ml) Confirm Administered Dose 2 mg .ROUTE .STK-MED ONE Stop: 01/24/19 06:08 Ondansetron HCl (Zofran) Confirm Administered Dose 4 mg .ROUTE .STK-MED ONE Stop: 01/24/19 06:07 Ondansetron HCl (Zofran) 4 mg IVPUSH ONETIME PRN PRN Reason: Nausea/Vomiting Stop: 01/24/19 16:00 Oxycodone HCl (Oxycontin) 10 mg PO ONETIME [place] Stop: 01/24/19 16:00 Last Admin: 01/24/19 09:20 Dose: 10 mg Phenylephrine HCl (Phenylephrine In Ns 100 Mcg/Ml) Confirm Administered Dose 1 mg .ROUTE .STK-MED ONE Stop: 01/24/19 06:07 Pregabalin (Lyrica) 50 mg PO ONETIME [place] Stop: 01/24/19 14:00 Last Admin: 01/24/19 09:21 Dose: 50 mg Propofol (Diprivan 20 Ml) Confirm Administered Dose 400 mg .ROUTE .STK-MED ONE Stop: 01/24/19 06:08 Tranexamic Acid (Cyklokapron) Confirm Administered Dose 1,000 mg .ROUTE .STK- MED ONE Stop: 01/24/19 10:00 Last Admin: 01/24/19 11:58 Dose: 1,000 mg Vancomycin HCl (Vancomycin) Confirm Administered Dose 1 gm .ROUTE .STK-MED ONE Stop: 01/24/19 10:00 Last Admin: 01/24/19 11:58 Dose: 1 gm - Exam Quality Assessment: DVT Prophylaxis General: Alert, Oriented, Cooperative, No Acute Distress HEENT: Pupils Equal, Pupils Reactive, EOMI, Mucous Membr. Moist/[place] Neck: Supple, Trachea Midline, No JVD Lungs: Clear to Auscultation, Normal Respiratory Effort Cardiovascular: Regular Rate, Regular Rhythm GI/Abdominal Exam: Normal Bowel Sounds, Soft, Non-Tender, No Organomegaly, No Distention (Male) Exam: Deferred Back Exam: Normal Inspection, Full Range of Motion Extremities: No Pedal Edema, Normal Capillary Refill, Leg Pain, Limited Range of Motion, Other (Bandage in place on right leg. Cooling pack in place ) Peripheral Pulses: 2+: Radial (L), Radial (R), Dorsalis Pedis (L), Dorsalis Pedis (R) Skin: Warm, Dry, Intact Wound/Incisions: Dressing Dry and Intact, No Drainage Neurological: No New Focal Deficit Psy/Mental Status: Alert, Normal Affect, Normal Mood Consult PN Assessment/Plan POD#: 1 Procedures: Procedures ASSAY OF TROPONIN QUANT (08/06/18) C-REACTIVE PROTEIN (08/06/18) COLONOSCOPY AND BIOPSY (10/10/16) COMPLETE CBC W/AUTO DIFF WBC (08/06/18) COMPREHEN METABOLIC PANEL (08/06/18) CREATINE MB FRACTION (08/06/18) CT ANGIOGRAPHY CHEST (08/06/18) CT HEAD/BRAIN W/O & W/DYE (02/24/14) DRAIN/INJ JOINT/BURSA W/O US (10/01/18) DXA BONE DENSITY AXIAL (07/09/18) ECG MONIT/REPRT UP TO 48 HRS (04/02/14) ELECTROCARDIOGRAM TRACING (08/06/18) EMERGENCY DEPT VISIT (08/06/18) EXTREMITY STUDY (08/06/18) FIBRIN DEGRADATION QUANT (08/06/18) HYDRATE IV INFUSION ADD-ON (08/06/18) MR-STAPH DNA AMP PROBE (01/12/19) MRI LUMBAR SPINE W/O DYE (04/15/18) ROUTINE VENIPUNCTURE (08/06/18) THER/PROPH/DIAG INJ IV PUSH (08/06/18) TISSUE EXAM BY PATHOLOGIST (10/10/16) TX/PRO/DX INJ NEW DRUG ADDON (08/06/18) URINALYSIS AUTO W/SCOPE (08/06/18) (1) S/P total hip arthroplasty SNOMED Code(s): 951236111057, 281039327827 Code(s): Z96.649 - PRESENCE OF UNSPECIFIED ARTIFICIAL HIP JOINT Priority: High Current Visit: No Qualifiers: Laterality: right Qualified Code(s): Z96.641 - Presence of right artificial hip joint (2) Osteoarthritis SNOMED Code(s): 594511519 Code(s): M19.90 - UNSPECIFIED OSTEOARTHRITIS, UNSPECIFIED SITE Priority: High Current Visit: No Qualifiers: Osteoarthritis location: hip Osteoarthritis type: primary Laterality: right Qualified Code(s): M16.11 - Unilateral primary osteoarthritis, right hip (3) HTN (hypertension) SNOMED Code(s): 04318003 Code(s): I10 - ESSENTIAL (PRIMARY) HYPERTENSION Priority: Medium Current Visit: No Qualifiers: Hypertension type: unspecified Qualified Code(s): I10 - Essential (primary ) hypertension (4) Hypothyroidism SNOMED Code(s): 23173138 Code(s): E03.9 - HYPOTHYROIDISM, UNSPECIFIED Priority: Medium Current Visit: No Qualifiers: Hypothyroidism type: unspecified Qualified Code(s): E03.9 - Hypothyroidism , unspecified (5) Tobacco use disorder SNOMED Code(s): 438294114 Code(s): F17.200 - NICOTINE DEPENDENCE, UNSPECIFIED, UNCOMPLICATED Priority : Medium Current Visit: No Problem List Initiated/Reviewed/Updated: Yes Plan: I/P: Acute: S/P right total hip arthroplasty - post-operative day 1 -DVT prophylaxis and pain management per primary care team -PT/OT -IS/RT -Monitor oxygen saturation -Titrate oxygen as needed -Vital signs stable -Monitor labs -Pre-operative Hgb was 16.0; Now 13.7 -Pre-operative GFR was >60; Now >60 Osteoarthritis of right hip -Pain management per primary care team Chronic: ECG atrial bigeminy HTN HLD Hypothyroidism Plan: CM for discharge planning GI prophylaxis Home medications as indicated Other orders as listed above Routine AM labs He is a full code. His PCP is Dr. Huston From a hospitalist standpoint Juan is doing very well. He has been up ambulating and working with PT/OT. He has urinated and is off of oxygen. Labs and vital signs remain stable. Pain is controlled. He will be cleared for discharge pending primary team and PT/OT agreement. Thank you for allowing us to participate in the care of this patient!!
--- NOTE | 2019-01-25 08:14 | PCM.SURGPN ---
- General Info Date of Service: 01/25/19 POD#: 1 Functional Status: Reports: Pain Controlled, Tolerating Diet, Ambulating, Urinating, Incentive Spirometry - Patient Data Vitals - Most Recent: Last Vital Signs Temp 98.2 F 01/25/19 04:02 Pulse 70 01/25/19 04:02 Resp 14 01/25/19 04:02 BP 119/81 01/25/19 04:02 Pulse Ox 94 L 01/25/19 04:02 Weight - Most Recent: 196 lb 3.2 oz I&O - Last 24 Hours: Intake & Output 01/24/19 01/25/19 01/25/19 22:59 06:59 14:59 Intake Total 2079 2049 Output Total 350 2100 Balance 1730 -50 Lab Results Last 24 Hrs: Laboratory Results - last 24 hr 01/24/19 01/25/19 01/25/19 Range/Units 09:20 04:23 04:23 WBC 9.02 (4.23-9.07) K/mm3 RBC 4.23 L (4.63-6.08) M/mm3 Hgb 13.7 (13.7-17.5) gm/L Hct 42.5 (40.1-51.0) % MCV 100.5 H (79.0-92.2) fl MCH 32.4 H (25.7-32.2) pg MCHC 32.2 (32.2-35.5) g/dl RDW Std Deviation 51.3 H (35.1-43.9) fL Plt Count 203 (163-337) K/mm3 MPV 9.7 (9.4-12.3) fl Sodium 136 (136-145) mEq/L Potassium 4.4 (3.5-5.1) mEq/L Chloride 102 (98-107) mEq/L Carbon Dioxide 25 (21-32) mEq/L Anion Gap 13.4 (5-15) BUN 17 (7-18) mg/dL Creatinine 1.2 (0.7-1.3) mg/dL Est Cr Clr Drug Dosing 56.86 mL/min Estimated GFR (MDRD) > 60 (>60) mL/min BUN/Creatinine Ratio 14.2 (14-18) Glucose 109 (80-115) mg/dL Calcium 8.2 L (8.5-10.1) mg/dL Magnesium (1.8-2.4) mg/dl Total Bilirubin 0.4 (0.2-1.0) mg/dL AST 53 H (15-37) U/L ALT 55 (16-63) U/L Alkaline Phosphatase 79 (46-116) U/L C-Reactive Protein (<1.0) mg/dL Total Protein 6.6 (6.4-8.2) g/dl Albumin 3.3 L (3.4-5.0) g/dl Globulin 3.3 gm/dL Albumin/Globulin Ratio 1.0 (1-2) Blood Type O POSITIVE Gel Antibody Screen Negative 01/25/19 Range/Units 04:23 WBC (4.23-9.07) K/mm3 RBC (4.63-6.08) M/mm3 Hgb (13.7-17.5) gm/L Hct (40.1-51.0) % MCV (79.0-92.2) fl MCH (25.7-32.2) pg MCHC (32.2-35.5) g/dl RDW Std Deviation (35.1-43.9) fL Plt Count (163-337) K/mm3 MPV (9.4-12.3) fl Sodium (136-145) mEq/L Potassium (3.5-5.1) mEq/L Chloride (98-107) mEq/L Carbon Dioxide (21-32) mEq/L Anion Gap (5-15) BUN (7-18) mg/dL Creatinine (0.7-1.3) mg/dL Est Cr Clr Drug Dosing mL/min Estimated GFR (MDRD) (>60) mL/min BUN/Creatinine Ratio (14-18) Glucose (80-115) mg/dL Calcium (8.5-10.1) mg/dL Magnesium 1.8 (1.8-2.4) mg/dl Total Bilirubin (0.2-1.0) mg/dL AST (15-37) U/L ALT (16-63) U/L Alkaline Phosphatase (46-116) U/L C-Reactive Protein 1.5 H* (<1.0) mg/dL Total Protein (6.4-8.2) g/dl Albumin (3.4-5.0) g/dl Globulin gm/dL Albumin/Globulin Ratio (1-2) Blood Type Gel Antibody Screen Med Orders - Current: Current Medications Amlodipine Besylate (Norvasc) 5 mg PO DAILY [facility] Bisacodyl (Dulcolax) 5 mg PO DAILY PRN PRN Reason: Constipation Cholecalciferol (Vitamin D3) 5,000 unit PO DAILY [facility] Cyclobenzaprine HCl (Flexeril) 10 mg PO TID PRN PRN Reason: Spasms Docusate Sodium (Colace) 100 mg PO BID [facility] Last Admin: 01/24/19 20:41 Dose: 100 mg Famotidine (Pepcid) 20 mg PO Q12H [facility] Last Admin: 01/24/19 20:42 Dose: 20 mg Lactated Ringer's (Ringers, Lactated) 1,000 mls @ 125 mls/hr IV ASDIRECTED [facility] Last Admin: 01/24/19 09:15 Dose: 125 mls/hr Cefazolin Sodium/Dextrose 2 gm (/ Premix) 50 mls @ 100 mls/hr IV Q8H [facility] Stop: 01/25/19 10:29 Last Admin: 01/25/19 02:01 Dose: 100 mls/hr Ketorolac Tromethamine (Toradol) 15 mg IVPUSH Q6H PRN PRN Reason: Pain Last Admin: 01/25/19 02:00 Dose: 15 mg Levothyroxine Sodium (Levothroid) 137 mcg PO DAILY@0600 [facility] Last Admin: 01/25/19 06:27 Dose: 137 mcg Lisinopril (Prinivil) 10 mg PO DAILY [facility] Magnesium Hydroxide (Milk Of Magnesia) 30 ml PO BID PRN PRN Reason: Constipation Morphine Sulfate (Morphine) 2 mg IVPUSH Q2H PRN PRN Reason: Breakthrough Pain Naloxone HCl (Narcan) 0.1 mg IVPUSH Q5M PRN PRN Reason: Oversedation Ondansetron HCl (Zofran) 4 mg IVPUSH Q6H PRN PRN Reason: Nausea/Vomiting Oxycodone/Acetaminophen (Percocet 325-5 Mg) 1 - 2 tab PO Q4H PRN PRN Reason: Pain Last Admin: 01/25/19 06:27 Dose: 2 tab Rivaroxaban (Xarelto) 10 mg PO DAILY [facility] Rosuvastatin Calcium (Crestor) 20 mg PO DAILY [facility] Senna (Senna) 8.6 mg PO BID PRN PRN Reason: Constipation Sodium Chloride (Saline Flush) 10 ml FLUSH ASDIRECTED PRN PRN Reason: Keep Vein Open Discontinued Medications Acetaminophen (Tylenol) 975 mg PO ONETIME [facility] Stop: 01/24/19 14:00 Last Admin: 01/24/19 09:21 Dose: 975 mg Albuterol (Proventil Neb Soln) 2.5 mg NEB ONETIME ONE Stop: 01/24/19 10:46 Albuterol (Proventil Neb Soln) Confirm Administered Dose 2.5 mg .ROUTE .STK-MED ONE Stop: 01/24/19 10:14 Albuterol (Proventil Neb Soln) 2.5 mg NEB ONETIME PRN PRN Reason: improve oxygenation Stop: 01/24/19 16:00 Aspirin (Ecotrin) 325 mg PO BID [facility] Atropine Sulfate (Atropine) Confirm Administered Dose 0.4 mg .ROUTE .STK-MED ONE Stop: 01/24/19 10:38 Bupivacaine HCl (Marcaine 0.25%) Confirm Administered Dose 30 ml .ROUTE .STK- MED ONE Stop: 01/24/19 10:00 Last Admin: 01/24/19 11:57 Dose: 30 ml Bupivacaine HCl/Dextrose (Marcaine 0.75% Spinal) Confirm Administered Dose 2 ml .ROUTE .STK-MED ONE Stop: 01/24/19 05:56 Cefazolin Sodium (Ancef) Confirm Administered Dose 2 gm .ROUTE .STK-MED ONE Stop: 01/24/19 06:07 Last Admin: 01/24/19 11:52 Dose: 2 gm Cefazolin Sodium (Ancef) Confirm Administered Dose 2 gm .ROUTE .STK-MED ONE Stop: 01/24/19 10:00 Morphine Sulfate 8 mg/Epinephrine HCl 0.3 mg/Cefuroxime Sodium 750 mg/Ketorolac Tromethamine 30 mg/Sodium Chloride 27.9 ml 0 mg .XX ONETIME ONE Stop: 01/24/19 10:31 Last Admin: 01/24/19 15:53 Dose: Not Given Diphenhydramine HCl (Benadryl) 25 mg IVPUSH Q6H PRN PRN Reason: pruritis Stop: 01/24/19 16:00 Ephedrine Sulfate (Ephedrine In Ns) Confirm Administered Dose 25 mg .ROUTE .STK- MED ONE Stop: 01/24/19 10:39 Ephedrine Sulfate (Ephedrine Sulfate) 5 mg IVPUSH ASDIRECTED PRN PRN Reason: Hypotension Stop: 01/24/19 16:00 Fentanyl (Sublimaze) Confirm Administered Dose 100 mcg .ROUTE .STK-MED ONE Stop: 01/24/19 06:08 Fentanyl (Sublimaze) 50 mcg IVPUSH Q5M PRN PRN Reason: Pain Stop: 01/24/19 15:00 Hydromorphone HCl (Dilaudid) Confirm Administered Dose 0.5 mg .ROUTE .STK-MED ONE Stop: 01/24/19 10:10 Hydromorphone HCl (Dilaudid) 0.5 mg IVPUSH Q15M PRN PRN Reason: Pain (severe 7-10) Stop: 01/24/19 15:00 Lidocaine HCl (Xylocaine-Mpf 1%) Confirm Administered Dose 10 mls @ as directed .ROUTE .ST-MED ONE Stop: 01/24/19 06:07 Lactated Ringer's (Ringers, Lactated) Confirm Administered Dose 1,000 mls @ as directed .ROUTE .ST-MED ONE Stop: 01/24/19 06:07 Lidocaine HCl (Xylocaine-Mpf 1%) Confirm Administered Dose 2 mls @ as directed .ROUTE .ST-MED ONE Stop: 01/24/19 06:11 Lidocaine HCl (Xylocaine-Mpf 1%) Confirm Administered Dose 2 mls @ as directed .ROUTE .ST-MED ONE Stop: 01/24/19 06:11 Phenylephrine HCl 1 mg/ Sodium (Chloride) 10.1 mls @ 1 mls/sec IV TITRATE [facility]; Protocol Stop: 01/24/19 15:00 Sodium Chloride (Normal Saline) Confirm Administered Dose 1,000 mls @ as directed .ROUTE .ST-MED ONE Stop: 01/24/19 11:33 Iodine (Iodine 2% Mild Tincture) Confirm Administered Dose 30 ml .ROUTE .STK- MED ONE Stop: 01/24/19 10:00 Last Admin: 01/24/19 11:50 Dose: 18 ml Ketamine HCl (Ketalar) Confirm Administered Dose 500 mg .ROUTE .ST-MED ONE Stop: 01/24/19 06:09 Ketorolac Tromethamine (Toradol) Confirm Administered Dose 30 mg .ROUTE .STK- MED ONE Stop: 01/24/19 06:07 Lidocaine/Sodium Bicarbonate (Buffered Lidocaine 1% In Ns 8.4%) 0.25 ml IDERM ONETIME PRN PRN Reason: Prior to IV Start Stop: 01/24/19 18:00 Last Admin: 01/24/19 09:15 Dose: 0.25 ml Midazolam HCl (Versed 1 Mg/Ml) Confirm Administered Dose 2 mg .ROUTE .STK-MED ONE Stop: 01/24/19 06:08 Ondansetron HCl (Zofran) Confirm Administered Dose 4 mg .ROUTE .STK-MED ONE Stop: 01/24/19 06:07 Ondansetron HCl (Zofran) 4 mg IVPUSH ONETIME PRN PRN Reason: Nausea/Vomiting Stop: 01/24/19 16:00 Oxycodone HCl (Oxycontin) 10 mg PO ONETIME [facility] Stop: 01/24/19 16:00 Last Admin: 01/24/19 09:20 Dose: 10 mg Phenylephrine HCl (Phenylephrine In Ns 100 Mcg/Ml) Confirm Administered Dose 1 mg .ROUTE .STK-MED ONE Stop: 01/24/19 06:07 Pregabalin (Lyrica) 50 mg PO ONETIME [facility] Stop: 01/24/19 14:00 Last Admin: 01/24/19 09:21 Dose: 50 mg Propofol (Diprivan 20 Ml) Confirm Administered Dose 400 mg .ROUTE .STK-MED ONE Stop: 01/24/19 06:08 Tranexamic Acid (Cyklokapron) Confirm Administered Dose 1,000 mg .ROUTE .STK- MED ONE Stop: 01/24/19 10:00 Last Admin: 01/24/19 11:58 Dose: 1,000 mg Vancomycin HCl (Vancomycin) Confirm Administered Dose 1 gm .ROUTE .STK-MED ONE Stop: 01/24/19 10:00 Last Admin: 01/24/19 11:58 Dose: 1 gm - Exam Wound/Incisions: Dressing Dry and Intact General: Alert, Cooperative, No Acute Distress Lungs: Normal Respiratory Effort Extremities: Other (NVS intact for RLE. Radha's negative.) - Problem List Review Problem List Initiated/Reviewed/Updated: Yes - My Orders Last 24 Hours: Active Orders 24 hr Category Date Time Status Patient Status [ADT] Routine ADT 01/24/19 07:25 Active Ambulate [RC] PER UNIT ROUTINE Care 01/24/19 07:25 Active Antiembolic Devices [RC] BID Care 01/24/19 07:26 Active Cooling Warming Measures [RC] ASDIRECTED Care 01/24/19 10:56 Inactive May Shower [RC] ASDIRECTED Care 01/24/19 07:25 Active Notify Provider Consults [RC] ASDIRECTED Care 01/24/19 07:28 Active Notify Provider [RC] ASDIRECTED Care 01/24/19 10:57 Active Oxygen Therapy [RC] PRN Care 01/24/19 07:25 Active Pulse Oximetry [RC] ASDIRECTED Care 01/24/19 10:56 Active RT Aerosol Therapy [RC] ASDIRECTED Care 01/24/19 10:01 Active RT Incentive Spirometry [RC] Q1HWA Care 01/24/19 07:25 Active Ready for Discharge [RC] PER UNIT ROUTINE Care 01/25/19 08:06 Active Up to Chair [RC] ASDIRECTED Care 01/24/19 07:25 Active Vital Signs [RC] Q4H Care 01/24/19 07:25 Active Consult to Physician [CONS] Routine Cons 01/24/19 07:25 Active OT Evaluation and Treatment [CONS] Routine Cons 01/24/19 07:25 Active PT Evaluation and Treatment [CONS] Routine Cons 01/24/19 07:25 Active Regular Diet [DIET] Diet 01/24/19 Lunch Active Acetaminophen/oxyCODONE [Percocet 325-5 MG] Med 01/24/19 07:25 Active 1 - 2 tab PO Q4H PRN Bisacodyl [Dulcolax] Med 01/24/19 07:25 Active 5 mg PO DAILY PRN Cholecalciferol (Vitamin D3) [Vitamin D3] Med 01/25/19 09:00 Active 5,000 unit PO DAILY Cyclobenzaprine [Flexeril] Med 01/24/19 07:25 Active 10 mg PO TID PRN Docusate Sodium [Colace] Med 01/24/19 21:00 Active 100 mg PO BID Famotidine [Pepcid] Med 01/24/19 21:00 Active 20 mg PO Q12H Ketorolac [Toradol] Med 01/24/19 07:25 Active 15 mg IVPUSH Q6H PRN Levothyroxine [Levothroid] Med 01/25/19 06:00 Active 137 mcg PO DAILY@0600 Lisinopril [Prinivil] Med 01/25/19 09:00 Active 10 mg PO DAILY Magnesium Hydroxide [Milk of Magnesia] Med 01/24/19 07:25 Active 30 ml PO BID PRN Morphine Med 01/24/19 07:25 Active 2 mg IVPUSH Q2H PRN Naloxone [Narcan] Med 01/24/19 07:25 Active 0.1 mg IVPUSH Q5M PRN Ondansetron [Zofran] Med 01/24/19 07:25 Active 4 mg IVPUSH Q6H PRN Rivaroxaban [Xarelto] Med 01/25/19 09:00 Active 10 mg PO DAILY Rosuvastatin [Crestor] Med 01/25/19 09:00 Active 20 mg PO DAILY Sennosides [Senna] Med 01/24/19 07:25 Active 8.6 mg PO BID PRN amLODIPine [Norvasc] Med 01/25/19 09:00 Active 5 mg PO DAILY ceFAZolin [Ancef] 2 gm Med 01/24/19 18:00 Active Premix Bag 1 bag IV Q8H Antiembolic Hose [OM.PC] Per Unit Routine Oth 01/24/19 07:27 Ordered Hip Precautions Posterior [OM.PC] Routine Oth 01/24/19 07:25 Ordered Ice Therapy [OM.PC] Per Unit Routine Oth 01/24/19 07:26 Ordered Sequential Compression Device [OM.PC] Per Unit Routine Oth 01/24/19 07:25 Ordered Resuscitation Status Routine Resus Stat 01/24/19 07:25 Ordered EKG 12 Lead [EK] Routine Ther 01/24/19 15:17 Ordered Medication Orders Amlodipine Besylate (Norvasc) 5 mg PO DAILY [facility] Bisacodyl (Dulcolax) 5 mg PO DAILY PRN PRN Reason: Constipation Cholecalciferol (Vitamin D3) 5,000 unit PO DAILY [facility] Cyclobenzaprine HCl (Flexeril) 10 mg PO TID PRN PRN Reason: Spasms Docusate Sodium (Colace) 100 mg PO BID [facility] Last Admin: 01/24/19 20:41 Dose: 100 mg Famotidine (Pepcid) 20 mg PO Q12H [facility] Last Admin: 01/24/19 20:42 Dose: 20 mg Lactated Ringer's (Ringers, Lactated) 1,000 mls @ 125 mls/hr IV ASDIRECTED [facility] Last Admin: 01/24/19 09:15 Dose: 125 mls/hr Cefazolin Sodium/Dextrose 2 gm (/ Premix) 50 mls @ 100 mls/hr IV Q8H [facility] Stop: 01/25/19 10:29 Last Admin: 01/25/19 02:01 Dose: 100 mls/hr Infusion: 01/24/19 18:09 Dose: 100 mls/hr Admin: 01/24/19 17:39 Dose: 100 mls/hr Ketorolac Tromethamine (Toradol) 15 mg IVPUSH Q6H PRN PRN Reason: Pain Last Admin: 01/25/19 02:00 Dose: 15 mg Admin: 01/24/19 18:42 Dose: 15 mg Levothyroxine Sodium (Levothroid) 137 mcg PO DAILY@0600 [facility] Last Admin: 01/25/19 06:27 Dose: 137 mcg Lisinopril (Prinivil) 10 mg PO DAILY [facility] Magnesium Hydroxide (Milk Of Magnesia) 30 ml PO BID PRN PRN Reason: Constipation Morphine Sulfate (Morphine) 2 mg IVPUSH Q2H PRN PRN Reason: Breakthrough Pain Naloxone HCl (Narcan) 0.1 mg IVPUSH Q5M PRN PRN Reason: Oversedation Ondansetron HCl (Zofran) 4 mg IVPUSH Q6H PRN PRN Reason: Nausea/Vomiting Oxycodone/Acetaminophen (Percocet 325-5 Mg) 1 - 2 tab PO Q4H PRN PRN Reason: Pain Last Admin: 01/25/19 06:27 Dose: 2 tab Admin: 01/25/19 02:00 Dose: 2 tab Admin: 01/24/19 20:42 Dose: 2 tab Admin: 01/24/19 15:59 Dose: 2 tab Rivaroxaban (Xarelto) 10 mg PO DAILY [facility] Rosuvastatin Calcium (Crestor) 20 mg PO DAILY [facility] Senna (Senna) 8.6 mg PO BID PRN PRN Reason: Constipation Sodium Chloride (Saline Flush) 10 ml FLUSH ASDIRECTED PRN PRN Reason: Keep Vein Open - Assessment Assessment (Free Text/Narrative):: POD#1 - right ESTEFANIA - Plan Plan (Free Text/Narrative):: 1. Hgb 13.7. 2. Xarelto 10mg PO daily. 3. Discharge to home today. The pt's case was discussed with Dr. Hale.
[2019-01-25] MEDS ORDERED: Lisinopril 10 MG Tab PO SCH (09:00)
[2019-01-25] MEDS ORDERED: amLODIPine 5 MG Tab PO SCH (09:00)
[2019-01-25] MEDS ORDERED: Rivaroxaban 10 MG Tab PO SCH (09:00)
[2019-01-25] MEDS ORDERED: Aspirin 81 MG Tab.EC PO SCH (09:00)
[2019-01-25] MEDS ORDERED: Cholecalciferol (Vitamin D3) 5,000 UNIT Tab PO SCH (09:00)
[2019-01-25] MEDS ORDERED: Aspirin 325 MG Tab.EC PO SCH (09:00)
[2019-01-25] MEDS ORDERED: Rosuvastatin 10 MG Tab PO SCH (09:00)
--- NOTE | 2019-01-25 09:02 | PCM48HPAN ---
Post Anesthesia Note - EVALUATION WITHIN 48HRS OF ANESTHETIC Vital Signs in Normal Range: Yes Patient Participated in Evaluation: Yes Respiratory Function Stable: Yes Airway Patent: Yes Cardiovascular Function Stable: Yes Hydration Status Stable: Yes Pain Control Satisfactory: Yes (more pain than last time. sitting up in chair.) Nausea and Vomiting Control Satisfactory: Yes Mental Status Recovered: Yes Pulse Rate: 70 Resp Rate: 14 Temperature: 98.2 F Blood Pressure: 119/81
[2019-01-25 09:21] VITALS: BP 132/74
[2019-01-25] MEDS: Famotidine 20 MG Tab PO SCH (09:21)
[2019-01-25] MEDS: Docusate Sodium 100 MG Cap PO SCH (09:22)
--- NOTE | 2019-01-25 17:51 | PCM.DCSUM1 ---
Discharge Summary - Hospital Course Brief History: Juan is a 63 yo male who underwent right ESTEFANIA with Dr. Hale on 01-24-2019. The procedure was completed under spinal anesthesia with MAC. The pt tolerated the procedure well and was admitted to the Medical-Surgical Unit. Medical management was provided by the Hospitalist service. The pt's Hospital course was uneventful. The pt's Hgb on POD#1 was 13.7. On POD#1, Xarelto 10mg PO daily was initiated for VTE prophylaxis. SCDs and TEDs were also ordered. A Mepilex dressing was placed at the incision site at the time of surgery and remained clean and dry. The pt participated in P.T. and O.T. and progressed well. He followed the ESTEFANIA precautions. The pt was allowed to WBAT. On POD#1, the pt was deemed appropriate to discharge to home with his . - Discharge Data Discharge Date: 01/25/19 Discharge Disposition: Home, Self-Care 01 Condition: Good - Patient Summary/Data Operative Procedure(s) Performed: right total hip arthroplasty Consults: Consultations 01/24/19 07:25 Consult to Physician [CONS] Routine OT Evaluation and Treatment [CONS] Routine PT Evaluation and Treatment [CONS] Routine - Patient Instructions Diet: Usual Diet as Tolerated Activity: Apply Ice, As Tolerated, Elevate Extremity, Full Weight Bearing Activity, Other: Follow the Total Hip Precautions. Driving: Do Not Drive Showering/Bathing: May Shower Wound/Incision Care: Keep Operative Site/Wound Site Clean and Dry, Do NOT Change Dressing Notify Provider of: Fever, Increased Pain, Swelling and Redness, Drainage, Nausea and/or Vomiting Other/Special Instructions: Please get up and moving around EVERY HOUR while awake. This helps to prevent blood clots. Please use your walker and have help with mobility as needed. Take a short walk in your home every hour while awake. Please take the Xarelto blood thinner medication daily as directed. At home, please complete the exercises that you learned during the Hospital stay. Schedule for physical therapy. Follow the total hip precautions. Use the pain medication as needed. The medication may cause drowsiness and constipation. Contact your primary care provider for instructions if you are constipated. You may use a stool softener like docusate sodium or Colace 100mg twice daily and/or a laxative like Miralax daily for constipation. Increase your water and fiber intake while you are using the pain medication. Discontinue use of the pain medication as soon as able. Please do not use other medications that may cause drowsiness (other pain medications, anxiety pills, cold medications, sleeping pills, etc) while using the prescription pain medication. Do not use alcohol while using the pain medication. Wear the ALBERTO hose during the day and you may remove these at night. Elevate the limb to decrease swelling. Place ice to the area often. Place a towel between your skin and the blue pad. Use the incentive spirometer often. Take deep breaths throughout the day. Please keep the dressing in place until follow-up. Notify the Clinic if the dressing becomes saturated. Increase your protein intake while you are healing. If you have diabetes, please closely monitor your blood sugars and notify your primary care provider with abnormal values. Elevated blood sugars increases the risk of infection. Call the Clinic with questions or concerns - [phone]. - Discharge Plan *PRESCRIPTION DRUG MONITORING PROGRAM REVIEWED*: No *COPY OF PRESCRIPTION DRUG MONITORING REPORT IN PATIENT BAKARI: No Prescriptions/Med Rec: Acetaminophen/oxyCODONE [Percocet 325-5 MG] 1 - 2 tab PO Q6H PRN #60 tablet PRN Reason: Pain Cyclobenzaprine [Flexeril] 10 mg PO TID PRN #40 tablet PRN Reason: Spasms Rivaroxaban [Xarelto] 10 mg PO DAILY #35 tablet Home Medications: Home Meds Aspirin [Halfprin] 81 mg PO DAILY 10/09/16 [History] Ramipril [Altace] 5 mg PO DAILY 10/09/16 [History] amLODIPine [Norvasc] 5 mg PO DAILY 10/09/16 [History] Levothyroxine Sodium 137 mcg PO DAILY 01/23/19 [History] Rosuvastatin Calcium 20 mg PO DAILY 01/23/19 [History] Acetaminophen/oxyCODONE [Percocet 325-5 MG] 1 - 2 tab PO Q6H PRN #60 tablet 03/11 [Rx] Bisacodyl [Dulcolax] 5 mg PO DAILY PRN tablet 01/24/19 [Rx] Cholecalciferol (Vitamin D3) [Vitamin D3] 5,000 unit PO DAILY tablet 01/24/19 [ Rx] Cyclobenzaprine [Flexeril] 10 mg PO TID PRN #40 tablet 01/24/19 [Rx] Docusate Sodium [Colace] 100 mg PO BID cap 01/24/19 [Rx] Famotidine [Pepcid] 20 mg PO Q12H tablet 01/24/19 [Rx] Magnesium Hydroxide [Milk of Magnesia] 30 ml PO BID PRN cup 01/24/19 [Rx] Rivaroxaban [Xarelto] 10 mg PO DAILY #35 tablet 01/24/19 [Rx] Sennosides [Senna] 8.6 mg PO BID PRN tablet 01/24/19 [Rx] Patient Handouts: Steps to Quit Smoking, [id number], Rivaroxaban oral tablets Referrals: Ailyn Obrien PA-C [Physician Field Health Officer] - 02/01/19 3:00 pm (02/08/19 at 10: 45am with Ailyn Obrien PA-C) - Discharge Summary/Plan Comment DC Time >30 min.: No - Patient Data Vitals - Most Recent: Last Vital Signs Temp 98.4 F 01/25/19 09:06 Pulse 63 01/25/19 09:06 Resp 14 01/25/19 09:02 BP 132/74 01/25/19 09:22 Pulse Ox 97 01/25/19 09:06 Weight - Most Recent: 196 lb 3.2 oz I&O - Last 24 hours: Intake & Output 01/25/19 01/25/19 01/25/19 06:59 14:59 22:59 Intake Total 2050 480 Output Total 2100 Balance -50 480 Lab Results - Last 24 hrs: Laboratory Results - last 24 hr 01/25/19 01/25/19 01/25/19 Range/Units 04:23 04:23 04:23 WBC 9.02 (4.23-9.07) K/mm3 RBC 4.23 L (4.63-6.08) M/mm3 Hgb 13.7 (13.7-17.5) gm/L Hct 42.5 (40.1-51.0) % MCV 100.5 H (79.0-92.2) fl MCH 32.4 H (25.7-32.2) pg MCHC 32.2 (32.2-35.5) g/dl RDW Std Deviation 51.3 H (35.1-43.9) fL Plt Count 203 (163-337) K/mm3 MPV 9.7 (9.4-12.3) fl Sodium 136 (136-145) mEq/L Potassium 4.4 (3.5-5.1) mEq/L Chloride 102 (98-107) mEq/L Carbon Dioxide 25 (21-32) mEq/L Anion Gap 13.4 (5-15) BUN 17 (7-18) mg/dL Creatinine 1.2 (0.7-1.3) mg/dL Est Cr Clr Drug Dosing 56.86 mL/min Estimated GFR (MDRD) > 60 (>60) mL/min BUN/Creatinine Ratio 14.2 (14-18) Glucose 109 (80-115) mg/dL Calcium 8.2 L (8.5-10.1) mg/dL Magnesium 1.8 (1.8-2.4) mg/dl Total Bilirubin 0.4 (0.2-1.0) mg/dL AST 53 H (15-37) U/L ALT 55 (16-63) U/L Alkaline Phosphatase 79 (46-116) U/L C-Reactive Protein 1.5 H* (<1.0) mg/dL Total Protein 6.6 (6.4-8.2) g/dl Albumin 3.3 L (3.4-5.0) g/dl Globulin 3.3 gm/dL Albumin/Globulin Ratio 1.0 (1-2) Med Orders - Current: Current Medications Discontinued Medications Acetaminophen (Tylenol) 975 mg PO ONETIME [facility] Stop: 01/24/19 14:00 Last Admin: 01/24/19 09:21 Dose: 975 mg Albuterol (Proventil Neb Soln) 2.5 mg NEB ONETIME ONE Stop: 01/24/19 10:46 Albuterol (Proventil Neb Soln) Confirm Administered Dose 2.5 mg .ROUTE .STK-MED ONE Stop: 01/24/19 10:14 Albuterol (Proventil Neb Soln) 2.5 mg NEB ONETIME PRN PRN Reason: improve oxygenation Stop: 01/24/19 16:00 Amlodipine Besylate (Norvasc) 5 mg PO DAILY [facility] Last Admin: 01/25/19 09:22 Dose: 5 mg Aspirin (Ecotrin) 325 mg PO BID [facility] Atropine Sulfate (Atropine) Confirm Administered Dose 0.4 mg .ROUTE .STK-MED ONE Stop: 01/24/19 10:38 Bisacodyl (Dulcolax) 5 mg PO DAILY PRN PRN Reason: Constipation Bupivacaine HCl (Marcaine 0.25%) Confirm Administered Dose 30 ml .ROUTE .STK- MED ONE Stop: 01/24/19 10:00 Last Admin: 01/24/19 11:57 Dose: 30 ml Bupivacaine HCl/Dextrose (Marcaine 0.75% Spinal) Confirm Administered Dose 2 ml .ROUTE .STK-MED ONE Stop: 01/24/19 05:56 Cefazolin Sodium (Ancef) Confirm Administered Dose 2 gm .ROUTE .STK-MED ONE Stop: 01/24/19 06:07 Last Admin: 01/24/19 11:52 Dose: 2 gm Cefazolin Sodium (Ancef) Confirm Administered Dose 2 gm .ROUTE .STK-MED ONE Stop: 01/24/19 10:00 Cholecalciferol (Vitamin D3) 5,000 unit PO DAILY [facility] Last Admin: 01/25/19 09:21 Dose: 5,000 unit Morphine Sulfate 8 mg/Epinephrine HCl 0.3 mg/Cefuroxime Sodium 750 mg/Ketorolac Tromethamine 30 mg/Sodium Chloride 27.9 ml 0 mg .XX ONETIME ONE Stop: 01/24/19 10:31 Last Admin: 01/24/19 15:53 Dose: Not Given Cyclobenzaprine HCl (Flexeril) 10 mg PO TID PRN PRN Reason: Spasms Last Admin: 01/25/19 09:22 Dose: 10 mg Diphenhydramine HCl (Benadryl) 25 mg IVPUSH Q6H PRN PRN Reason: pruritis Stop: 01/24/19 16:00 Docusate Sodium (Colace) 100 mg PO BID [facility] Last Admin: 01/25/19 09:22 Dose: 100 mg Ephedrine Sulfate (Ephedrine In Ns) Confirm Administered Dose 25 mg .ROUTE .STK- MED ONE Stop: 01/24/19 10:39 Ephedrine Sulfate (Ephedrine Sulfate) 5 mg IVPUSH ASDIRECTED PRN PRN Reason: Hypotension Stop: 01/24/19 16:00 Famotidine (Pepcid) 20 mg PO Q12H [facility] Last Admin: 01/25/19 09:21 Dose: 20 mg Fentanyl (Sublimaze) Confirm Administered Dose 100 mcg .ROUTE .STK-MED ONE Stop: 01/24/19 06:08 Fentanyl (Sublimaze) 50 mcg IVPUSH Q5M PRN PRN Reason: Pain Stop: 01/24/19 15:00 Hydromorphone HCl (Dilaudid) Confirm Administered Dose 0.5 mg .ROUTE .STK-MED ONE Stop: 01/24/19 10:10 Hydromorphone HCl (Dilaudid) 0.5 mg IVPUSH Q15M PRN PRN Reason: Pain (severe 7-10) Stop: 01/24/19 15:00 Lactated Ringer's (Ringers, Lactated) 1,000 mls @ 125 mls/hr IV ASDIRECTED [facility] Last Admin: 01/24/19 09:15 Dose: 125 mls/hr Lidocaine HCl (Xylocaine-Mpf 1%) Confirm Administered Dose 10 mls @ as directed .ROUTE .STK-MED ONE Stop: 01/24/19 06:07 Lactated Ringer's (Ringers, Lactated) Confirm Administered Dose 1,000 mls @ as directed .ROUTE .STK-MED ONE Stop: 01/24/19 06:07 Lidocaine HCl (Xylocaine-Mpf 1%) Confirm Administered Dose 2 mls @ as directed .ROUTE .STK-MED ONE Stop: 01/24/19 06:11 Lidocaine HCl (Xylocaine-Mpf 1%) Confirm Administered Dose 2 mls @ as directed .ROUTE .STK-MED ONE Stop: 01/24/19 06:11 Cefazolin Sodium/Dextrose 2 gm (/ Premix) 50 mls @ 100 mls/hr IV Q8H [facility] Stop: 01/25/19 10:29 Last Admin: 01/25/19 09:23 Dose: 100 mls/hr Phenylephrine HCl 1 mg/ Sodium (Chloride) 10.1 mls @ 1 mls/sec IV TITRATE [facility]; Protocol Stop: 01/24/19 15:00 Sodium Chloride (Normal Saline) Confirm Administered Dose 1,000 mls @ as directed .ROUTE .STK-MED ONE Stop: 01/24/19 11:33 Iodine (Iodine 2% Mild Tincture) Confirm Administered Dose 30 ml .ROUTE .STK- MED ONE Stop: 01/24/19 10:00 Last Admin: 01/24/19 11:50 Dose: 18 ml Ketamine HCl (Ketalar) Confirm Administered Dose 500 mg .ROUTE .[employer] ONE Stop: 01/24/19 06:09 Ketorolac Tromethamine (Toradol) Confirm Administered Dose 30 mg .ROUTE .[employer]- MED ONE Stop: 01/24/19 06:07 Ketorolac Tromethamine (Toradol) 15 mg IVPUSH Q6H PRN PRN Reason: Pain Last Admin: 01/25/19 02:00 Dose: 15 mg Levothyroxine Sodium (Levothroid) 137 mcg PO DAILY@0600 [facility] Last Admin: 01/25/19 06:27 Dose: 137 mcg Lidocaine/Sodium Bicarbonate (Buffered Lidocaine 1% In Ns 8.4%) 0.25 ml IDERM ONETIME PRN PRN Reason: Prior to IV Start Stop: 01/24/19 18:00 Last Admin: 01/24/19 09:15 Dose: 0.25 ml Lisinopril (Prinivil) 10 mg PO DAILY [facility] Last Admin: 01/25/19 09:21 Dose: 10 mg Magnesium Hydroxide (Milk Of Magnesia) 30 ml PO BID PRN PRN Reason: Constipation Midazolam HCl (Versed 1 Mg/Ml) Confirm Administered Dose 2 mg .ROUTE .[facility] ONE Stop: 01/24/19 06:08 Morphine Sulfate (Morphine) 2 mg IVPUSH Q2H PRN PRN Reason: Breakthrough Pain Naloxone HCl (Narcan) 0.1 mg IVPUSH Q5M PRN PRN Reason: Oversedation Ondansetron HCl (Zofran) Confirm Administered Dose 4 mg .ROUTE .[facility]-MED ONE Stop: 01/24/19 06:07 Ondansetron HCl (Zofran) 4 mg IVPUSH Q6H PRN PRN Reason: Nausea/Vomiting Ondansetron HCl (Zofran) 4 mg IVPUSH ONETIME PRN PRN Reason: Nausea/Vomiting Stop: 01/24/19 16:00 Oxycodone HCl (Oxycontin) 10 mg PO ONETIME [facility] Stop: 01/24/19 16:00 Last Admin: 01/24/19 09:20 Dose: 10 mg Oxycodone/Acetaminophen (Percocet 325-5 Mg) 1 - 2 tab PO Q4H PRN PRN Reason: Pain Last Admin: 01/25/19 06:27 Dose: 2 tab Phenylephrine HCl (Phenylephrine In Ns 100 Mcg/Ml) Confirm Administered Dose 1 mg .ROUTE .STK-MED ONE Stop: 01/24/19 06:07 Pregabalin (Lyrica) 50 mg PO ONETIME [facility] Stop: 01/24/19 14:00 Last Admin: 01/24/19 09:21 Dose: 50 mg Propofol (Diprivan 20 Ml) Confirm Administered Dose 400 mg .ROUTE .STK-MED ONE Stop: 01/24/19 06:08 Rivaroxaban (Xarelto) 10 mg PO DAILY [facility] Last Admin: 01/25/19 09:22 Dose: 10 mg Rosuvastatin Calcium (Crestor) 20 mg PO DAILY [facility] Last Admin: 01/25/19 09:21 Dose: 20 mg Senna (Senna) 8.6 mg PO BID PRN PRN Reason: Constipation Sodium Chloride (Saline Flush) 10 ml FLUSH ASDIRECTED PRN PRN Reason: Keep Vein Open Tranexamic Acid (Cyklokapron) Confirm Administered Dose 1,000 mg .ROUTE .STK- MED ONE Stop: 01/24/19 10:00 Last Admin: 01/24/19 11:58 Dose: 1,000 mg Vancomycin HCl (Vancomycin) Confirm Administered Dose 1 gm .ROUTE .STK-MED ONE Stop: 01/24/19 10:00 Last Admin: 01/24/19 11:58 Dose: 1 gm
== END 2019-01-25 13:10 | disposition home or self-care (01) | DRG 301 ==
LOC: JD.MS 08:50
PROVIDERS: ADMIT Orthopaedic Surgery; ATTEND Orthopaedic Surgery
PROC: 3E0U029 Introduction of Other Anti-infective into Joints, Open Approach (ICD-10-PCS; principal; 2019-01-24)
PROC: 0SR904Z Replacement of Right Hip Joint with Ceramic on Polyethylene Synthetic Substitute, Open Approach (ICD-10-PCS; principal; 2019-01-24)
DX: M16.11 Unilateral primary osteoarthritis, right hip (principal); I10 Essential (primary) hypertension; E03.9 Hypothyroidism, unspecified; E78.2 Mixed hyperlipidemia; R42 Dizziness and giddiness; G89.29 Other chronic pain; F17.210 Nicotine dependence, cigarettes, uncomplicated; K57.90 Diverticulosis of intestine, part unspecified, without perforation or abscess without bleeding; E78.00 Pure hypercholesterolemia, unspecified; H54.7 Unspecified visual loss; R00.8 Other abnormalities of heart beat; I49.1 Atrial premature depolarization; Z96.642 Presence of left artificial hip joint; Z79.82 Long term (current) use of aspirin; Z79.890 Hormone replacement therapy; Z79.899 Other long term (current) drug therapy; Z85.828 Personal history of other malignant neoplasm of skin; Z96.612 Presence of left artificial shoulder joint
CPT/HCPCS: 01214; 36415; 73501-26-RT; 73501-RT; 80053; 83735; 85027; 86140; 86850; 86900; 86901; 93005; 97110-GP; 97116-GP; 97161-GP; 97165-GO; 97535-GO; A9270-GY; C1776; J0171; J0461; J0690; J0697; J1170; J1885; J2001; J2250; J2270; J2370; J2405; J2704; J3010; J3370; J3490; J7040; J7050; J7120

== ENCOUNTER 2019-11-28 06:00 | Inpatient (IN) | payer BC ==
--- NOTE | 2019-11-25 11:18 | PCM.PREANE ---
Preanesthetic Assessment - Anesthesia/Transfusion/Family Hx Anesthesia History: Prior Anesthesia Without Reaction Family History of Anesthesia Reaction: No Transfusion History: No Prior Transfusion(s) Intubation History: Unknown - Review of Systems General: No Symptoms Pulmonary: No Symptoms (Former smoker quit 3months ago. ( 40pk smoking history) , ETOH: occasionally) Cardiovascular: No Symptoms (CAD- 4vessel CABG (08/26/2019)-has been doing cardiac rehab./elevated cholesterol, HTN), Palpitations (History of PAC's ( bigeminal pattern), PVC's) Neurological: No Symptoms (chronic lower back pain: 04/01), Syncope (History of syncope(2013)), Tingling (bilateral hands on occasion) Other: Reports: Easy Bleeding, Easy Bruising, Thyroid Problems (hypothyroid), Neck Pain (occasionally) - Physical Assessment NPO Status Date: 11/27/19 NPO Status Time: 18:30 Vital Signs: HR:60 BP:131/96 SAT:97% RESP:16 TEMP:97.1 Height: 1.68 m Weight: 90 kg ASA Class: 3 Mental Status: Alert & Oriented x3 Airway Class: Mallampati = 2 Dentition: Reports: Normal Dentition, Caries Thyro-Mental Finger Breadths: 3 Mouth Opening Finger Breadths: 3 ROM/Head Extension: Full Lungs: Clear to Auscultation, Normal Respiratory Effort, Decreased Breath Sounds Cardiovascular: Regular Rate, Regular Rhythm, No Murmurs - Lab Values: All labs reviewed and noted and within acceptable ranges to proceed with scheduled procedure. - Imaging/EKG Impressions: CXR: Slight scarring in the lung bases. EK11/21/2019: SR rate=65, probable old anteroseptal infarct, non specific T abnormalities lateral leads. - Allergies Allergies/Adverse Reactions: Allergies Allergy/AdvReac Type Severity Reaction Status Date / Time No Known Allergies Allergy Verified 11/25/19 10:13 - Anesthesia Plan Pre-Op Medication Ordered: Beta Nelly, Other (Pre-op Meds: lyrica, oxycodone, tylenol all P.O. @) Beta Nelly: Metoprolol Med Last Dose Date: 11/28/19 Med Last Dose Time: 05:30 - Acknowledgements Anesthesia Type Planned: Spinal (Right Adductor Canal Block under US guidance for post operative pain control requested by Dr. Hale.) Pt an Appropriate Candidate for the Planned Anesthesia: Yes Alternatives and Risks of Anesthesia Discussed w Pt/Guardian: Yes Pt/Guardian Understands and Agrees with Anesthesia Plan: Yes PreAnesthesia Questionnaire HEENT History: Reports: Impaired Vision Cardiovascular History: Reports: CAD, High Cholesterol, Hypertension Other Cardiovascular History: Patient has known sinus arrythmia with PACs, Abnormal stress test Respiratory History: Reports: None Gastrointestinal History: Reports: Diverticulosis Genitourinary History: Reports: None FOLDING MACHINE FEEDER History: Reports: None Musculoskeletal History: Reports: Fracture, Osteoarthritis Neurological History: Reports: Other (See Below) Other Neuro History: syncope Psychiatric History: Reports: None Endocrine/Metabolic History: Reports: Hypothyroidism, Obesity/BMI 30+ Hematologic History: Reports: None Immunologic History: Reports: None Oncologic (Cancer) History: Reports: Other (See Below) Other Oncologic History: skin cancer of lip Dermatologic History: Reports: Other (See Below) 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 viltiligo - Past Surgical History HEENT Surgical History: Reports: Eye Surgery Other HEENT Surgeries/Procedures: blepharoplasty, bilat. Cardiovascular Surgical History: Reports: Coronary Artery Bypass Other Cardiovascular Surgeries/Procedures: quad bypass in August 2019 Respiratory Surgical History: Reports: None GI Surgical History: Reports: Appendectomy, Colonoscopy Other GI Surgeries/Procedures: Familial history of colon cancer Female Surgical History: Reports: None Male Surgical History: Reports: None Endocrine Surgical History: Reports: None Neurological Surgical History: Reports: None, Scoliosis Musculoskeletal Surgical History: Reports: Arthroscopic Procedure, Hip Replacement Other Musculoskeletal Surgeries/Procedures:: right knee arthroscopy and partial right knee replacement. right rotator cuff repair, left total shoulder, bilateral thumb repair, clavicle fracture, bilateral total hip replacements Oncologic Surgical History: Reports: None Dermatological Surgical History: Reports: None - SUBSTANCE USE Smoking Status *Q: Former Smoker Recreational Drug Use History: No - HOME MEDS Home Medications: Home Meds Levothyroxine Sodium 137 mcg PO DAILY 01/23/19 [History] Rosuvastatin Calcium 20 mg PO DAILY 01/23/19 [History] Cholecalciferol (Vitamin D3) [Vitamin D3] 5,000 unit PO DAILY tablet 01/24/19 [ Rx] Aspirin 325 mg PO DAILY 11/25/19 [History] Cyanocobalamin (Vitamin B12) [Vitamin B12] 1,000 mcg SQ Q30D 11/25/19 [History] Metoprolol Tartrate 25 mg PO BID 11/25/19 [History] - CURRENT (IN HOUSE) MEDS Current Meds: Current Medications Acetaminophen (Tylenol) 975 mg PO ONETIME [facility] Stop: 11/28/19 16:00 Lactated Ringer's (Ringers, Lactated) 1,000 mls @ 125 mls/hr IV ASDIRECTED [facility] Stop: 11/28/19 23:00 Lidocaine/Sodium Bicarbonate (Buffered Lidocaine 1% In Ns 8.4%) 0.25 ml IDERM ONETIME PRN PRN Reason: Prior to IV Start Stop: 11/28/19 18:00 Oxycodone HCl (Oxycontin) 10 mg PO ONETIME [facility] Stop: 11/28/19 18:00 Pregabalin (Lyrica) 50 mg PO ONETIME [facility] Stop: 11/28/19 16:00 Sodium Chloride (Saline Flush) 10 ml FLUSH ASDIRECTED PRN PRN Reason: Keep Vein Open Stop: 11/28/19 18:00
[~2019-11-28 06:00] MED LIST changes: +Albuterol 0.083% 2.5 MG/3 ML Neb Soln NEB PRN; -Bisacodyl 5 MG Tab PO PRN; -Bupivacaine 0.75%/D5W 2 ML Amp ONE; -Cyclobenzaprine 10 MG Tab PO PRN; +EPINEPHrine 1 MG/ML SDV ONE; -Ketamine 500 mg/10 ML MDV ONE; -Lactated Ringers 1,000 ML IV SCH; -Lidocaine 1% 2 ML ONE; +Lidocaine 1% 6 ML ONE; -Magnesium Hydroxide 400 MG/5 ML Susp 30 ML Cup PO PRN; -Midazolam 1 MG/ML 2 ML SDV ONE; -Morphine 2 MG/ML Syringe IVPUSH PRN; -Naloxone 0.4 MG/ML SDV IVPUSH PRN; -Ondansetron 4 MG/2 ML SDV IVPUSH PRN; -Propofol 200 MG/20 ML SDV ONE; +Ropivacaine 0.5% 5 MG/ML 30 ML SDV ONE; -Sennosides 8.6 MG Tab PO PRN; -fentaNYL 100 MCG/2 ML SDV ONE
[2019-11-28] MEDS ORDERED: fentaNYL 100 MCG/2 ML SDV ONE (06:01)
[2019-11-28] MEDS ORDERED: Propofol 200 MG/20 ML SDV ONE ×2 (06:01→08:17)
[2019-11-28] MEDS ORDERED: Midazolam 1 MG/ML 2 ML SDV ONE (06:01)
[2019-11-28] MEDS ORDERED: Ketamine 500 mg/10 ML MDV ONE (06:02)
[2019-11-28] MEDS ORDERED: Cyclobenzaprine 10 MG Tab PO PRN (06:34)
[2019-11-28] MEDS ORDERED: Sennosides 8.6 MG Tab PO PRN (06:35)
[2019-11-28] MEDS ORDERED: Naloxone 0.4 MG/ML SDV IVPUSH PRN (06:35)
[2019-11-28] MEDS ORDERED: Magnesium Hydroxide 400 MG/5 ML Susp 30 ML Cup PO PRN (06:35)
[2019-11-28] MEDS ORDERED: Bisacodyl 5 MG Tab PO PRN (06:35)
[2019-11-28] MEDS ORDERED: Ondansetron 4 MG/2 ML SDV IVPUSH PRN ×2 (06:35→07:37)
[2019-11-28] MEDS ORDERED: Morphine 2 MG/ML SYRINGE IVPUSH PRN (06:35)
[2019-11-28] MEDS: Lactated Ringers 1,000 ML IV SCH ×2 (06:36→06:37)
[2019-11-28] MEDS ORDERED: Lidocaine 1% 2 ML ONE (07:28)
[2019-11-28] MEDS ORDERED: diphenhydrAMINE 50 MG/ML SDV IVPUSH PRN (07:37)
[2019-11-28] MEDS ORDERED: ePHEDrine 50 MG/ML SDV IVPUSH PRN (07:37)
[2019-11-28] MEDS ORDERED: HYDROmorphone 0.5 MG/0.5 ML Syringe IVPUSH PRN (07:37)
[2019-11-28] MEDS ORDERED: Albuterol 0.083% 2.5 MG/3 ML Neb Soln NEB PRN (07:37)
[2019-11-28] MEDS ORDERED: fentaNYL 100 MCG/2 ML SDV IVPUSH PRN (07:37)
--- NOTE | 2019-11-28 07:37 | PCM.CONS ---
H&P History of Present Illness - General Date of Service: 11/28/19 Admit Problem/Dx: Admission Diagnosis/Problem Admission Diagnosis/Problem Osteoarthritis of knee Source of Information: Patient, Old Records, Provider, RN, RN Notes Reviewed History Limitations: Reports: No Limitations - History of Present Illness Initial Comments - Free Text/Narative: Juan Hines is a 63 yo male patient of Dr. Hale who is post-operative day 0 of Revision right unicompartmental knee arthroplasty to total knee arthroplasty. Hospital medicine was consulted for post-operative medical care of the following listed medical conditions. At this time he is resting comfortably in bed. Pain is controlled. He denies any chest pain, shortness of breath, palpitations, nausea, or vomiting. He carries a history of: Diverticulosis, CAD with CABG x4 on 08/26/2019, PACs with bigeminy, hypertension, dyslipidemia, hypothyroidism, syncope, obesity, skin cancer or the lip, vitiligo, anemia, abnormal glucose, scar on his lung bases. He is a former smoker. He is a full code. His primary care provider is Dr. Huston. His quantitative equity head is Dr. Dunbar. - Related Data Allergies/Adverse Reactions: Allergies Allergy/AdvReac Type Severity Reaction Status Date / Time No Known Allergies Allergy Verified 11/28/19 10:56 Home Medications: Home Meds Levothyroxine Sodium 137 mcg PO DAILY 01/23/19 [History] Rosuvastatin Calcium 20 mg PO DAILY 01/23/19 [History] Cholecalciferol (Vitamin D3) [Vitamin D3] 5,000 unit PO DAILY tablet 01/24/19 [ Rx] Aspirin 325 mg PO DAILY 11/25/19 [History] Cyanocobalamin (Vitamin B12) [Vitamin B12] 1,000 mcg SQ Q30D 11/25/19 [History] Metoprolol Tartrate 25 mg PO BID 11/25/19 [History] Past Medical History HEENT History: Reports: Impaired Vision Cardiovascular History: Reports: CAD, High Cholesterol, Hypertension Other Cardiovascular History: Patient has known sinus arrythmia with PACs, Abnormal stress test Respiratory History: Reports: None Gastrointestinal History: Reports: Diverticulosis Genitourinary History: Reports: None CLINICAL NURSE MANAGER History: Reports: None Musculoskeletal History: Reports: Fracture, Osteoarthritis Neurological History: Reports: Other (See Below) Other Neuro History: syncope Psychiatric History: Reports: None Endocrine/Metabolic History: Reports: Hypothyroidism, Obesity/BMI 30+ Hematologic History: Reports: None Immunologic History: Reports: None Oncologic (Cancer) History: Reports: Other (See Below) Other Oncologic History: skin cancer of lip Dermatologic History: Reports: Other (See Below) 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 viltiligo - Past Surgical History HEENT Surgical History: Reports: Eye Surgery Other HEENT Surgeries/Procedures: blepharoplasty, bilat. Cardiovascular Surgical History: Reports: Coronary Artery Bypass Other Cardiovascular Surgeries/Procedures: quad bypass in August 2019 Respiratory Surgical History: Reports: None GI Surgical History: Reports: Appendectomy, Colonoscopy Other GI Surgeries/Procedures: Familial history of colon cancer Female Surgical History: Reports: None Male Surgical History: Reports: None Endocrine Surgical History: Reports: None Neurological Surgical History: Reports: None, Scoliosis Musculoskeletal Surgical History: Reports: Arthroscopic Procedure, Hip Replacement Other Musculoskeletal Surgeries/Procedures:: right knee arthroscopy and partial right knee replacement. right rotator cuff repair, left total shoulder, bilateral thumb repair, clavicle fracture, bilateral total hip replacements Oncologic Surgical History: Reports: None Dermatological Surgical History: Reports: None Social & Family History - Family History Other GI Family History: Mother had colon cancer Oncologic: Reports: Colon Other Oncologic Family History: Mother had colon cancer - Tobacco Use Smoking Status *Q: Former Smoker Used Tobacco, but Quit: Yes Month/Year Tobacco Last Used: 07/2019 - Caffeine Use Caffeine Use: Reports: Coffee, Soda - Recreational Drug Use Recreational Drug Use: No H&P Review of Systems - Review of Systems: Review Of Systems: See Below General: Reports: No Symptoms. Denies: Fever, Chills HEENT: Reports: No Symptoms. Denies: Headaches, Sore Throat Pulmonary: Reports: No Symptoms. Denies: Shortness of Breath, Wheezing, Cough, Sputum Cardiovascular: Reports: No Symptoms. Denies: Chest Pain, Palpitations, Edema Gastrointestinal: Reports: No Symptoms. Denies: Abdominal Pain, Constipation, Diarrhea, Nausea, Vomiting Genitourinary: Reports: No Symptoms. Denies: Pain Musculoskeletal: Reports: Muscle Stiffness (chest stiffness 2/2 CABG) Skin: Reports: No Symptoms. Denies: Cyanosis Psychiatric: Reports: No Symptoms. Denies: Confusion Neurological: Reports: Difficulty Walking, Gait Disturbance Hematologic/Lymphatic: Reports: No Symptoms Immunologic: Reports: No Symptoms Exam - Exam Exam: See Below - Vital Signs Vital Signs: Last Vital Signs Temp 97.1 F 11/28/19 06:10 Pulse 60 11/28/19 06:10 Resp 16 11/28/19 06:10 BP 131/96 H 11/28/19 06:10 Pulse Ox 97 11/28/19 07:01 Weight: 198 lb 6.656 oz - Exam Quality Assessment: DVT Prophylaxis. No: Supplemental Oxygen, Urinary Catheter General: Alert, Oriented, Cooperative. No: Mild Distress HEENT: Conjunctiva Clear, EACs Clear, EOMI, Hearing Intact, Mucosa Moist & [place] , Nares Patent, Posterior Pharynx Clear, PERRLA Neck: Supple, Trachea Midline Lungs: Clear to Auscultation, Normal Respiratory Effort, Decreased Breath Sounds Cardiovascular: Regular Rate, Regular Rhythm GI/Abdominal Exam: Normal Bowel Sounds, Soft, No Distention, No Abnormal Bruit (Male) Exam: Deferred Rectal (Males) Exam: Deferred Back Exam: Normal Inspection, Full Range of Motion Extremities: No Pedal Edema, Normal Capillary Refill, Leg Pain, Limited Range of Motion, Other (Bandage in place on right leg. Bandage is dry and intact. cooling pack in place. Bandage on left arm 2/2 aspiration of olecranon bursa. ) Peripheral Pulses: 2+: Radial (L), Radial (R), Dorsalis Pedis (L), Dorsalis Pedis (R) Skin: Warm, Dry, Intact Neurological: Cranial Nerves Intact (Grossly ) Neuro Extensive - Mental Status: Alert, Oriented x3, Normal Mood/Affect - Patient Data Lab Results Last 24 hrs: Laboratory Results - last 24 hr 11/28/19 Range/Units 06:17 PT 10.3 (9.7-12.0) SECONDS INR 0.94 APTT 29 (22-31) SECONDS Sepsis Event Note - Evaluation Sepsis Screening Result: No Definite Risk - Focused Exam Vital Signs: Vital Signs Temp Pulse Resp BP Pulse Ox Pulse Ox 11/28/19 07:01 97 11/28/19 06:10 97.1 F 60 16 131/96 H 97 Date Exam was Performed: 11/28/19 Time Exam was Performed: 12:24 Consult PN Assessment/Plan POD#: 0 Procedures: Procedures ASSAY OF TROPONIN QUANT (08/06/18) C-REACTIVE PROTEIN (11/18/19) CARDIAC REHAB/MONITOR (11/18/19) CARDIOVASCULAR STRESS TEST (08/04/19) COLONOSCOPY AND BIOPSY (10/10/16) COMPLETE CBC W/AUTO DIFF WBC (08/06/18) COMPREHEN METABOLIC PANEL (08/06/18) CREATINE MB FRACTION (08/06/18) CT ANGIOGRAPHY CHEST (08/06/18) CT HEAD/BRAIN W/O & W/DYE (02/24/14) DRAIN/INJ JOINT/BURSA W/O US (10/01/18) DXA BONE DENSITY AXIAL (07/09/18) ECG MONIT/REPRT UP TO 48 HRS (02/22/14) ELECTROCARDIOGRAM TRACING (08/06/18) EMERGENCY DEPT VISIT (08/06/18) EXTREMITY STUDY (08/06/18) FIBRIN DEGRADATION QUANT (08/06/18) HT MUSCLE IMAGE SPECT MULT (08/04/19) HYDRATE IV INFUSION ADD-ON (08/06/18) MR-STAPH DNA AMP PROBE (11/18/19) MRI LUMBAR SPINE W/O DYE (04/15/18) ROUTINE VENIPUNCTURE (11/18/19) THER/PROPH/DIAG INJ IV PUSH (08/06/18) TISSUE EXAM BY PATHOLOGIST (10/10/16) TX/PRO/DX INJ NEW DRUG ADDON (08/06/18) URINALYSIS AUTO W/SCOPE (08/06/18) (1) S/P total knee arthroplasty SNOMED Code(s): 7224472719456, 199526776, 7304748255274 Code(s): Z96.659 - PRESENCE OF UNSPECIFIED ARTIFICIAL KNEE JOINT Priority: High Current Visit: Yes Qualifiers: Laterality: right Qualified Code(s): Z96.651 - Presence of right artificial knee joint (2) History of coronary artery bypass graft SNOMED Code(s): 153480946, 767563876 Code(s): Z95.1 - PRESENCE OF AORTOCORONARY BYPASS GRAFT Priority: High Current Visit: Yes (3) Diverticulosis SNOMED Code(s): 29542442 Code(s): K57.90 - DVRTCLOS OF INTEST, PART UNSP, W/O PERF OR ABSCESS W/O BLEED Priority: Low Current Visit: No Qualifiers: Diverticulosis site: unspecified location Diverticulosis bleeding: diverticulosis without bleeding Qualified Code(s): K57.90 - Diverticulosis of intestine, part unspecified, without perforation or abscess without bleeding (4) HLD (hyperlipidemia) SNOMED Code(s): 92566160 Code(s): E78.5 - HYPERLIPIDEMIA, UNSPECIFIED Priority: Low Current Visit : No Qualifiers: Hyperlipidemia type: unspecified Qualified Code(s): E78.5 - Hyperlipidemia , unspecified (5) HTN (hypertension) SNOMED Code(s): 85095253 Code(s): I10 - ESSENTIAL (PRIMARY) HYPERTENSION Priority: Medium Current Visit: No Qualifiers: Hypertension type: unspecified Qualified Code(s): I10 - Essential (primary ) hypertension (6) Hypothyroidism SNOMED Code(s): 39525224 Code(s): E03.9 - HYPOTHYROIDISM, UNSPECIFIED Priority: Medium Current Visit: No Qualifiers: Hypothyroidism type: unspecified Qualified Code(s): E03.9 - Hypothyroidism , unspecified (7) Osteoarthritis SNOMED Code(s): 156541093 Code(s): M19.90 - UNSPECIFIED OSTEOARTHRITIS, UNSPECIFIED SITE Priority: High Current Visit: No Qualifiers: Osteoarthritis location: knee Osteoarthritis type: primary Laterality: right Qualified Code(s): M17.11 - Unilateral primary osteoarthritis, right knee (8) PAC (premature atrial contraction) SNOMED Code(s): 264662729 Code(s): I49.1 - ATRIAL PREMATURE DEPOLARIZATION Priority: Medium Current Visit: Yes (9) CAD (coronary artery disease) SNOMED Code(s): 07321806 Code(s): I25.10 - ATHSCL HEART DISEASE OF [place] CORONARY ARTERY W/O ANG PCTRS Priority: Medium Current Visit: No Qualifiers: Coronary Disease-Associated Artery/Lesion type: unspecified vessel or lesion type [place] vs. transplanted heart: [place] heart Associated angina: angina presence unspecified Qualified Code(s): I25.10 - Atherosclerotic heart disease of [place] coronary artery without angina pectoris (10) Former smoker SNOMED Code(s): 3015479 Code(s): Z87.891 - PERSONAL HISTORY OF NICOTINE DEPENDENCE Priority: Medium Current Visit: No (11) Obesity SNOMED Code(s): 002777101, 841086103 Code(s): E66.9 - OBESITY, UNSPECIFIED Priority: Medium Current Visit: No Qualifiers: Obesity type: unspecified obesity type Obesity classification: unspecified obesity classification Serious obesity comorbidity presence: unspecified whether serious comorbidity present Qualified Code(s): E66.9 - Obesity, unspecified (12) Postoperative bradycardia SNOMED Code(s): 77942024 Code(s): I97.89 - OTH POSTPROC COMP AND DISORDERS OF THE CIRC SYS, NEC Priority: High Current Visit: Yes Problem List Initiated/Reviewed/Updated: Yes Plan: I/P: Acute: S/P Revision right unicompartmental knee arthroplasty to total knee arthroplasty - post-operative day 0 -DVT prophylaxis and pain management per primary care team -PT/OT -IS/RT -Monitor oxygen saturation -Titrate oxygen as needed -Home medications reviewed -Vital signs stable -Monitor labs -Pre-operative Hgb was 15.6 -Pre-operative GFR was 75 -Pre-operative BUN was 23 -Pre-operative A1C was 26.7 -Pre-operative 12-Lead EKG shows sinus rhythm at 65 BPM with non-specific intraventricular conduction delay -non-specific t-wave abnormalities -PACs in bigeminal pattern Osteoarthritis of right knee -Pain management per primary care team Post-operative bradycardia -Nursing reports patient HR dipping into upper 30's -Now HR in upper 60-70's. -Continue to monitor. S/P olecranon bursa aspiration -Performed by Dr. 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 His PCP is Dr. Huston. His quantitative equity head is Dr. Murphy. Thank you for allowing us to participate in the care of this patient!! Requesting Provider: Dr. Hale Patient History Reviewed: Yes Admission H&P Reviewed: Yes
[2019-11-28] MEDS ORDERED: ePHEDrine/Normal Saline 25 MG/5 ML Syringe ONE (07:41)
[2019-11-28] MEDS ORDERED: Phenylephrine 1 MG in Sodium Chloride 0.9% 10 ML IV SCH (07:45)
[2019-11-28] MEDS: Iodine/Sodium Iodide 2% Tincture 30 ML Bottle ONE ×2 (08:06→08:34)
[2019-11-28] MEDS: ceFAZolin 1 GM Vial ONE ×2 (08:08→08:38)
[2019-11-28] MEDS: Morphine 8 MG, EPINEPHrine 0.3 MG, Cefuroxime 750 MG, Ketorolac 30 MG, Sodium Chloride ... ONE ×15 (08:19→16:26)
[2019-11-28] MEDS: Vancomycin 1 GM SDV ONE ×2 (08:20→08:45)
[2019-11-28] MEDS: Bupivacaine 0.25% 10 ML SDV ONE ×2 (08:20→08:43)
[2019-11-28] MEDS ORDERED: Lactated Ringers 1,000 ML ONE (08:28)
--- NOTE | 2019-11-28 08:49 | PCM.SN ---
- Free Text/Narrative Note: Anesthesia Procedure Note: Right Adductor Canal Block under US guidance for postoperative pain control requested by Dr. Hale Date: 11/28/2019 Time Out: 921 Start: 922 Stop: 928 Surgical Procedure: Right Unicompartmental Revision Total Knee Arthroplasty Diagnosis: Pain due to internal orthopedic implant Current Procedure: Right Adductor Canal Block under US guidance for postoperative pain control requested by Dr. Hale. Patient chart reviewed, risk/benefits discussed with patient, consent obtained. Patient positioned supine, monitors/alarms on, oxygen placed via nasal cannula at 2 LPM. Right upper leg prepped with two chloropreps. Under US guidance right femoral artery within the adductor canal visualized along with the right femoral vein and nerve branches. 22gauge 4 inch stimiplex needle advanced under US. Incremental dosing of 5mls with negative aspiration noted prior to each injection of 0.5% ropivacaine with 1:200,000 epinephrine. Total volume=25mls. See Nursing Notes for vital signs. Vital signs stable throughout. Vaishnavi Espinoza CRNA
--- NOTE | 2019-11-28 09:20 | PCM.POSTAN ---
POST ANESTHESIA ASSESSMENT - MENTAL STATUS Mental Status: Alert - VITAL SIGNS Vital Signs: Last Vital Signs Temp 97 11/28/19 09:12 Pulse 65 11/28/19 09:12 Resp 7 11/28/19 09:12 BP 86/57 11/28/19 09:12 Pulse Ox 97 11/28/19 09:12 - RESPIRATORY Respiratory Status: Respiratory Rate WNL, Airway Patent, O2 Saturation Stable, Supplemental Oxygen - CARDIOVASCULAR CV Status: Pulse Rate WNL, Blood Pressure Stable - GASTROINTESTINAL GI Status: No Symptoms - POST OP HYDRATION Hydration Status: Adequate & Stable
[2019-11-28] MEDS: oxyCODONE 5 MG Tab PO PRN ×4 (10:03→21:31)
--- NOTE | 2019-11-28 10:07 | CR ---
Right knee: AP and lateral views of the right knee were obtained. Comparison: Previous right knee radiographic study of 12/23/12. Findings: Knee prosthesis is noted. Components are aligned. Soft tissue air is noted from the surgical procedure. Underlying bony structures are intact. Vascular calcification is noted. Impression: 1. Satisfactory postoperative radiographic appearance of recently placed right knee prosthesis. Diagnostic code #2 This report was dictated in [place] Standard Time
[2019-11-28] MEDS ORDERED: Ketorolac 15 MG/ML SDV IVPUSH PRN (13:00)
[2019-11-28] MEDS: ceFAZolin 2 GM in Premix Bag 1 BAG IV SCH ×2 (13:16→21:42)
[2019-11-28] MEDS: Metoprolol Tartrate 25 MG Tab PO SCH (20:07)
[2019-11-28] MEDS: Docusate Sodium 100 MG Cap PO SCH (20:08)
[2019-11-28] MEDS ORDERED: Famotidine 20 MG Tab PO SCH (21:00)
[2019-11-29] MEDS: oxyCODONE 5 MG Tab PO PRN ×3 (04:46→12:30)
[2019-11-29] MEDS: ceFAZolin 2 GM in Premix Bag 1 BAG IV SCH (06:02)
--- NOTE | 2019-11-29 07:05 | PCM.CONSN ---
- General Info Date of Service: 11/29/19 Admission Dx/Problem (Free Text): Admission Diagnosis/Problem Admission Diagnosis/Problem Osteoarthritis of knee Functional Status: Reports: Pain Controlled, Tolerating Diet, Ambulating, Urinating, Incentive Spirometry. Denies: New Symptoms - Review of Systems General: Reports: No Symptoms. Denies: Fever, Chills HEENT: Reports: No Symptoms. Denies: Headaches, Sore Throat Pulmonary: Reports: No Symptoms. Denies: Shortness of Breath, Cough, Sputum, Wheezing Cardiovascular: Reports: No Symptoms. Denies: Chest Pain, Palpitations, Dyspnea on Exertion Gastrointestinal: Reports: No Symptoms. Denies: Abdominal Pain, Constipation, Diarrhea, Nausea, Vomiting Genitourinary: Reports: No Symptoms. Denies: Pain Musculoskeletal: Reports: Leg Pain (right thigh) Skin: Reports: No Symptoms. Denies: Cyanosis Neurological: Reports: Difficulty Walking, Gait Disturbance. Denies: Confusion , Pre-Existing Deficit Psychiatric: Reports: No Symptoms - Patient Data Vitals - Most Recent: Last Vital Signs Temp 98.1 F 11/29/19 03:19 Pulse 82 11/29/19 03:19 Resp 20 11/29/19 03:19 BP 108/74 11/29/19 03:19 Pulse Ox 92 L 11/29/19 03:19 Weight - Most Recent: 211 lb I&O - Last 24 Hours: Intake & Output 11/28/19 11/29/19 11/29/19 22:59 06:59 14:59 Intake Total 1400 400 Output Total 900 450 Balance 500 -50 Lab Results Last 24 Hours: Laboratory Results - last 24 hr 11/28/19 Range/Units 06:17 PT 10.3 (9.7-12.0) SECONDS INR 0.94 APTT 29 (22-31) SECONDS Med Orders - Current: Current Medications Bisacodyl (Dulcolax) 5 mg PO DAILY PRN PRN Reason: Constipation Cholecalciferol (Vitamin D3) 5,000 unit PO DAILY [facility] Cyclobenzaprine HCl (Flexeril) 10 mg PO TID PRN PRN Reason: Spasms Last Admin: 11/29/19 03:23 Dose: 10 mg Docusate Sodium (Colace) 100 mg PO BID [facility] Last Admin: 11/28/19 20:08 Dose: 100 mg Famotidine (Pepcid) 20 mg PO Q12H [facility] Last Admin: 11/28/19 20:06 Dose: 20 mg Ketorolac Tromethamine (Toradol) 15 mg IVPUSH Q6H PRN PRN Reason: Pain Last Admin: 11/29/19 00:32 Dose: 15 mg Levothyroxine Sodium (Levothroid) 137 mcg PO ACBREAKFAST [facility] Last Admin: 11/29/19 06:03 Dose: 137 mcg Magnesium Hydroxide (Milk Of Magnesia) 30 ml PO BID PRN PRN Reason: Constipation Metoprolol Tartrate (Lopressor) 25 mg PO BID [facility] Last Admin: 11/28/19 20:07 Dose: 25 mg Morphine Sulfate (Morphine) 2 mg IVPUSH Q2H PRN PRN Reason: Breakthrough Pain Naloxone HCl (Narcan) 0.1 mg IVPUSH Q5M PRN PRN Reason: Oversedation Ondansetron HCl (Zofran) 4 mg IVPUSH Q6H PRN PRN Reason: Nausea/Vomiting Oxycodone HCl (Oxycodone) 5 - 10 mg PO Q4H PRN PRN Reason: Pain Last Admin: 11/29/19 04:46 Dose: 5 mg Rivaroxaban (Xarelto) 10 mg PO DAILY [facility] Rosuvastatin Calcium (Crestor) 20 mg PO DAILY [facility] Senna (Senna) 8.6 mg PO BID PRN PRN Reason: Constipation Discontinued Medications Acetaminophen (Tylenol) 975 mg PO ONETIME [facility] Stop: 11/28/19 16:00 Last Admin: 11/28/19 06:24 Dose: 975 mg Albuterol (Proventil Neb Soln) 2.5 mg NEB ONETIME PRN PRN Reason: bronchodilation Stop: 11/28/19 18:00 Last Admin: 11/28/19 06:57 Dose: 2.5 mg Albuterol (Proventil Neb Soln) 2.5 mg NEB ONETIME PRN PRN Reason: improve oxygenation Stop: 11/28/19 11:00 Bupivacaine HCl (Sensorcaine-Mpf 0.25%) Confirm Administered Dose 30 ml .ROUTE .STK-MED ONE Stop: 11/28/19 06:12 Last Admin: 11/28/19 08:43 Dose: 30 ml Cefazolin Sodium (Ancef) Confirm Administered Dose 2 gm .ROUTE .STK-MED ONE Stop: 11/28/19 06:01 Cefazolin Sodium (Ancef) Confirm Administered Dose 2 gm .ROUTE .ST-MED ONE Stop: 11/28/19 06:11 Last Admin: 11/28/19 08:38 Dose: 2 gm Morphine Sulfate 8 mg/Epinephrine HCl 0.3 mg/Cefuroxime Sodium 750 mg/Ketorolac Tromethamine 30 mg/Sodium Chloride 27.9 ml 0 mg .XX ONETIME ONE Stop: 11/28/19 07:31 Last Admin: 11/28/19 16:26 Dose: Not Given Diphenhydramine HCl (Benadryl) 25 mg IVPUSH Q6H PRN PRN Reason: pruritis Stop: 11/28/19 12:00 Ephedrine Sulfate (Ephedrine Sulfate) 5 mg IVPUSH ASDIRECTED PRN PRN Reason: Hypotension Stop: 11/28/19 12:00 Ephedrine Sulfate (Ephedrine In Ns) Confirm Administered Dose 25 mg .ROUTE .[facility]- MED ONE Stop: 11/28/19 07:42 Epinephrine HCl (Adrenalin) Confirm Administered Dose 1 mg .ROUTE .ST-MED ONE Stop: 11/28/19 05:47 Fentanyl (Sublimaze) Confirm Administered Dose 100 mcg .ROUTE .STK-MED ONE Stop: 11/28/19 06:02 Fentanyl (Sublimaze) 50 mcg IVPUSH Q5M PRN PRN Reason: Pain Stop: 11/28/19 10:00 Hydromorphone HCl (Dilaudid) 0.5 mg IVPUSH Q15M PRN PRN Reason: Pain (severe 7-10) Stop: 11/28/19 10:00 Lactated Ringer's (Ringers, Lactated) 1,000 mls @ 125 mls/hr IV ASDIRECTED [facility] Stop: 11/28/19 23:00 Last Admin: 11/28/19 06:37 Dose: 125 mls/hr Lidocaine HCl (Xylocaine-Mpf 1%) Confirm Administered Dose 6 mls @ as directed .ROUTE .ST-MED ONE Stop: 11/28/19 06:01 Lactated Ringer's (Ringers, Lactated) Confirm Administered Dose 1,000 mls @ as directed .ROUTE .ST-MED ONE Stop: 11/28/19 06:01 Cefazolin Sodium/Dextrose 2 gm (/ Premix) 50 mls @ 100 mls/hr IV Q8H [facility] Stop: 11/29/19 06:44 Last Admin: 11/29/19 06:02 Dose: 100 mls/hr Lidocaine HCl (Xylocaine-Mpf 1%) Confirm Administered Dose 2 mls @ as directed .ROUTE .STK-MED ONE Stop: 11/28/19 07:29 Phenylephrine HCl 1 mg/ Sodium (Chloride) 10.1 mls @ 1 mls/sec IV TITRATE [facility]; Protocol Stop: 11/28/19 12:00 Lactated Ringer's (Ringers, Lactated) Confirm Administered Dose 1,000 mls @ as directed .ROUTE .STK-MED ONE Stop: 11/28/19 08:29 Iodine (Iodine 2% Mild Tincture) Confirm Administered Dose 30 ml .ROUTE .STK- MED ONE Stop: 11/28/19 06:11 Last Admin: 11/28/19 08:34 Dose: 18 ml Ketamine HCl (Ketalar) Confirm Administered Dose 500 mg .ROUTE .STK-MED ONE Stop: 11/28/19 06:03 Ketorolac Tromethamine (Toradol) Confirm Administered Dose 30 mg .ROUTE .STK- MED ONE Stop: 11/28/19 06:01 Lidocaine/Sodium Bicarbonate (Buffered Lidocaine 1% In Ns 8.4%) 0.25 ml IDERM ONETIME PRN PRN Reason: Prior to IV Start Stop: 11/28/19 18:00 Last Admin: 11/28/19 06:37 Dose: 0.25 ml Midazolam HCl (Versed 1 Mg/Ml) Confirm Administered Dose 2 mg .ROUTE .STK-MED ONE Stop: 11/28/19 06:02 Ondansetron HCl (Zofran) Confirm Administered Dose 4 mg .ROUTE .STK-MED ONE Stop: 11/28/19 06:01 Ondansetron HCl (Zofran) 4 mg IVPUSH ONETIME PRN PRN Reason: Nausea/Vomiting Stop: 11/28/19 11:00 Oxycodone HCl (Oxycontin) 10 mg PO ONETIME [facility] Stop: 11/28/19 18:00 Last Admin: 11/28/19 06:24 Dose: 10 mg Phenylephrine HCl (Phenylephrine In Ns 100 Mcg/Ml) Confirm Administered Dose 1 mg .ROUTE .STK-MED ONE Stop: 11/28/19 06:01 Pregabalin (Lyrica) 50 mg PO ONETIME [facility] Stop: 11/28/19 16:00 Last Admin: 11/28/19 06:25 Dose: 50 mg Propofol (Diprivan 20 Ml) Confirm Administered Dose 400 mg .ROUTE .STK-MED ONE Stop: 11/28/19 06:02 Propofol (Diprivan 20 Ml) Confirm Administered Dose 200 mg .ROUTE .STK-MED ONE Stop: 11/28/19 08:18 Ropivacaine (Naropin 0.5%) Confirm Administered Dose 30 ml .ROUTE .STK-MED ONE Stop: 11/28/19 05:47 Sodium Chloride (Saline Flush) 10 ml FLUSH ASDIRECTED PRN PRN Reason: Keep Vein Open Stop: 11/28/19 18:00 Tranexamic Acid (Cyklokapron) Confirm Administered Dose 1,000 mg .ROUTE .STK- MED ONE Stop: 11/28/19 06:11 Last Admin: 11/28/19 08:49 Dose: 1,000 mg Vancomycin HCl (Vancomycin) Confirm Administered Dose 1 gm .ROUTE .STK-MED ONE Stop: 11/28/19 06:11 Last Admin: 11/28/19 08:45 Dose: 1 gm - Exam Quality Assessment: DVT Prophylaxis. No: Supplemental Oxygen, Urine Catheter General: Alert, Oriented, Cooperative, No Acute Distress HEENT: Pupils Equal, Pupils Reactive, Mucous Membr. Moist/[place] Neck: Supple, Trachea Midline Lungs: Clear to Auscultation, Normal Respiratory Effort Cardiovascular: Regular Rate, Irregular Rhythm (Frequent PACs ) GI/Abdominal Exam: Normal Bowel Sounds, Soft, Non-Tender, No Distention, No Abnormal Bruit (Male) Exam: Deferred Back Exam: Normal Inspection, Full Range of Motion Extremities: Normal Capillary Refill, Leg Pain, Limited Range of Motion, Other ( Bandage in place on right leg. Cooling pack in place. ) Peripheral Pulses: 2+: Radial (L), Radial (R), Dorsalis Pedis (L), Dorsalis Pedis (R) Skin: Warm, Dry, Intact Wound/Incisions: Dressing Dry and Intact Neurological: No New Focal Deficit Psy/Mental Status: Alert, Normal Affect, Normal Mood Sepsis Event Note - Evaluation Sepsis Screening Result: No Definite Risk - Focused Exam Vital Signs: Vital Signs Temp Pulse Resp BP Pulse Ox 11/29/19 03:19 98.1 F 82 20 108/74 92 L 11/29/19 00:25 98.2 F 89 18 124/82 94 L 11/28/19 20:07 82 118/79 11/28/19 20:04 98.1 F 82 16 118/79 94 L Date Exam was Performed: 11/29/19 Time Exam was Performed: 11:25 Consult PN Assessment/Plan POD#: 1 Procedures: Procedures ASSAY OF TROPONIN QUANT (08/06/18) C-REACTIVE PROTEIN (11/18/19) CARDIAC REHAB/MONITOR (11/18/19) CARDIOVASCULAR STRESS TEST (08/04/19) COLONOSCOPY AND BIOPSY (10/10/16) COMPLETE CBC W/AUTO DIFF WBC (08/06/18) COMPREHEN METABOLIC PANEL (08/06/18) CREATINE MB FRACTION (08/06/18) CT ANGIOGRAPHY CHEST (08/06/18) CT HEAD/BRAIN W/O & W/DYE (02/24/14) DRAIN/INJ JOINT/BURSA W/O US (10/01/18) DXA BONE DENSITY AXIAL (07/09/18) ECG MONIT/REPRT UP TO 48 HRS (02/22/14) ELECTROCARDIOGRAM TRACING (08/06/18) EMERGENCY DEPT VISIT (08/06/18) EXTREMITY STUDY (08/06/18) FIBRIN DEGRADATION QUANT (08/06/18) HT MUSCLE IMAGE SPECT MULT (08/04/19) HYDRATE IV INFUSION ADD-ON (08/06/18) MR-STAPH DNA AMP PROBE (11/18/19) MRI LUMBAR SPINE W/O DYE (04/15/18) ROUTINE VENIPUNCTURE (11/18/19) THER/PROPH/DIAG INJ IV PUSH (08/06/18) TISSUE EXAM BY PATHOLOGIST (10/10/16) TX/PRO/DX INJ NEW DRUG ADDON (08/06/18) URINALYSIS AUTO W/SCOPE (08/06/18) (1) S/P total knee arthroplasty SNOMED Code(s): 4152281263801, 533692310, 7592266167020 Code(s): Z96.659 - PRESENCE OF UNSPECIFIED ARTIFICIAL KNEE JOINT Priority: High Current Visit: Yes Qualifiers: Laterality: right Qualified Code(s): Z96.651 - Presence of right artificial knee joint (2) History of coronary artery bypass graft SNOMED Code(s): 625581959, 659345855 Code(s): Z95.1 - PRESENCE OF AORTOCORONARY BYPASS GRAFT Priority: High Current Visit: Yes (3) Diverticulosis SNOMED Code(s): 41896458 Code(s): K57.90 - DVRTCLOS OF INTEST, PART UNSP, W/O PERF OR ABSCESS W/O BLEED Priority: Low Current Visit: No Qualifiers: Diverticulosis site: unspecified location Diverticulosis bleeding: diverticulosis without bleeding Qualified Code(s): K57.90 - Diverticulosis of intestine, part unspecified, without perforation or abscess without bleeding (4) HLD (hyperlipidemia) SNOMED Code(s): 30110537 Code(s): E78.5 - HYPERLIPIDEMIA, UNSPECIFIED Priority: Low Current Visit : No Qualifiers: Hyperlipidemia type: unspecified Qualified Code(s): E78.5 - Hyperlipidemia , unspecified (5) HTN (hypertension) SNOMED Code(s): 76252926 Code(s): I10 - ESSENTIAL (PRIMARY) HYPERTENSION Priority: Medium Current Visit: No Qualifiers: Hypertension type: unspecified Qualified Code(s): I10 - Essential (primary ) hypertension (6) Hypothyroidism SNOMED Code(s): 71830419 Code(s): E03.9 - HYPOTHYROIDISM, UNSPECIFIED Priority: Medium Current Visit: No Qualifiers: Hypothyroidism type: unspecified Qualified Code(s): E03.9 - Hypothyroidism , unspecified (7) Osteoarthritis SNOMED Code(s): 055635083 Code(s): M19.90 - UNSPECIFIED OSTEOARTHRITIS, UNSPECIFIED SITE Priority: High Current Visit: No Qualifiers: Osteoarthritis location: knee Osteoarthritis type: primary Laterality: right Qualified Code(s): M17.11 - Unilateral primary osteoarthritis, right knee (8) PAC (premature atrial contraction) SNOMED Code(s): 735458078 Code(s): I49.1 - ATRIAL PREMATURE DEPOLARIZATION Priority: Medium Current Visit: Yes (9) CAD (coronary artery disease) SNOMED Code(s): 02800155 Code(s): I25.10 - ATHSCL HEART DISEASE OF [place] CORONARY ARTERY W/O ANG PCTRS Priority: Medium Current Visit: No Qualifiers: Coronary Disease-Associated Artery/Lesion type: unspecified vessel or lesion type [place] vs. transplanted heart: [place] heart Associated angina: angina presence unspecified Qualified Code(s): I25.10 - Atherosclerotic heart disease of [place] coronary artery without angina pectoris (10) Former smoker SNOMED Code(s): 0005450 Code(s): Z87.891 - PERSONAL HISTORY OF NICOTINE DEPENDENCE Priority: Medium Current Visit: No (11) Obesity SNOMED Code(s): 413587098, 507340355 Code(s): E66.9 - OBESITY, UNSPECIFIED Priority: Medium Current Visit: No Qualifiers: Obesity type: unspecified obesity type Obesity classification: unspecified obesity classification Serious obesity comorbidity presence: unspecified whether serious comorbidity present Qualified Code(s): E66.9 - Obesity, unspecified (12) Postoperative bradycardia SNOMED Code(s): 10128834 Code(s): I97.89 - OTH POSTPROC COMP AND DISORDERS OF THE CIRC SYS, NEC Priority: High Current Visit: Yes Problem List Initiated/Reviewed/Updated: Yes My Orders Last 24 Hours: My Active Orders 11/28/19 21:00 Metoprolol Tartrate [Lopressor] 25 mg PO BID 11/29/19 06:00 Levothyroxine [Levothroid] 137 mcg PO ACBREAKFAST 11/29/19 09:00 Cholecalciferol (Vitamin D3) [Vitamin D3] 5,000 unit PO DAILY Rosuvastatin [Crestor] 20 mg PO DAILY Plan: I/P: Acute: S/P Revision right unicompartmental knee arthroplasty to total knee arthroplasty - post-operative day 1 -DVT prophylaxis and pain management per primary care team -PT/OT -IS/RT -Monitor oxygen saturation -Titrate oxygen as needed -Home medications reviewed -Vital signs stable -Monitor labs -Pre-operative Hgb was 15.6; Now 13.0 -Pre-operative GFR was 75; Now >60 -Pre-operative BUN was 23; Now 22 -Pre-operative A1C was 26.7 -Pre-operative 12-Lead EKG shows sinus rhythm at 65 BPM with non-specific intraventricular conduction delay -Non-specific t-wave abnormalities -PACs in bigeminal pattern Osteoarthritis of right knee -Pain management per primary care team Post-operative bradycardia, resolved -Nursing reports patient HR dipping into upper 30's -HR in upper 60-70's on floor, now 80's -Continue to monitor S/P olecranon bursa aspiration -Performed by Dr. 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 His PCP is Dr. Huston. His garment liner is Dr. Murphy. From a hospitalist standpoint Juan is doing well. He has been up ambulating and working with therapies. He is off of oxygen and has urinated. He has been utilizing his IS. His labs and vital signs remain stable. He has been eating without difficulty. He is cleared for discharge pending primary team and PT/OT agreement. Thank you for allowing us to participate in the care of this patient!!
--- NOTE | 2019-11-29 07:32 | PCM.SURGPN ---
- General Info Date of Service: 11/29/19 POD#: 1 Functional Status: Reports: Pain Controlled, Tolerating Diet, Ambulating, Urinating, Incentive Spirometry, Other (The pt states he did not sleep well due to awakening secondary to pain or nursing duties.) - Patient Data Vitals - Most Recent: Last Vital Signs Temp 98.1 F 11/29/19 03:19 Pulse 82 11/29/19 03:19 Resp 20 11/29/19 03:19 BP 108/74 11/29/19 03:19 Pulse Ox 92 L 11/29/19 03:19 Weight - Most Recent: 211 lb I&O - Last 24 Hours: Intake & Output 11/28/19 11/29/19 11/29/19 22:59 06:59 14:59 Intake Total 1400 400 Output Total 900 450 Balance 500 -50 Lab Results Last 24 Hrs: Laboratory Results - last 24 hr 11/29/19 11/29/19 Range/Units 06:04 06:04 WBC 7.50 (4.23-9.07) K/mm3 RBC 4.11 L (4.63-6.08) M/mm3 Hgb 13.0 L (13.7-17.5) gm/dl Hct 40.8 (40.1-51.0) % MCV 99.3 H (79.0-92.2) fl MCH 31.6 (25.7-32.2) pg MCHC 31.9 L (32.2-35.5) g/dl RDW Std Deviation 47.8 H (35.1-43.9) fL Plt Count 204 (163-337) K/mm3 MPV 9.7 (9.4-12.3) fl Sodium 136 (136-145) mEq/L Potassium 4.3 (3.5-5.1) mEq/L Chloride 102 (98-107) mEq/L Carbon Dioxide 24 (21-32) mEq/L Anion Gap 14.3 (5-15) BUN 22 H (7-18) mg/dL Creatinine 1.2 (0.7-1.3) mg/dL Est Cr Clr Drug Dosing 56.12 mL/min Estimated GFR (MDRD) > 60 (>60) mL/min BUN/Creatinine Ratio 18.3 H (14-18) Glucose 121 H (80-115) mg/dL Calcium 8.5 (8.5-10.1) mg/dL Total Bilirubin 0.5 (0.2-1.0) mg/dL AST 22 (15-37) U/L ALT 29 (16-63) U/L Alkaline Phosphatase 95 (46-116) U/L Total Protein 6.6 (6.4-8.2) g/dl Albumin 3.0 L (3.4-5.0) g/dl Globulin 3.6 gm/dL Albumin/Globulin Ratio 0.8 L (1-2) Med Orders - Current: Current Medications Bisacodyl (Dulcolax) 5 mg PO DAILY PRN PRN Reason: Constipation Cholecalciferol (Vitamin D3) 5,000 unit PO DAILY [facility] Cyclobenzaprine HCl (Flexeril) 10 mg PO TID PRN PRN Reason: Spasms Last Admin: 11/29/19 03:23 Dose: 10 mg Docusate Sodium (Colace) 100 mg PO BID [facility] Last Admin: 11/28/19 20:08 Dose: 100 mg Famotidine (Pepcid) 20 mg PO Q12H [facility] Last Admin: 11/28/19 20:06 Dose: 20 mg Ketorolac Tromethamine (Toradol) 15 mg IVPUSH Q6H PRN PRN Reason: Pain Last Admin: 11/29/19 00:32 Dose: 15 mg Levothyroxine Sodium (Levothroid) 137 mcg PO ACBREAKFAST [facility] Last Admin: 11/29/19 06:03 Dose: 137 mcg Magnesium Hydroxide (Milk Of Magnesia) 30 ml PO BID PRN PRN Reason: Constipation Metoprolol Tartrate (Lopressor) 25 mg PO BID [facility] Last Admin: 11/28/19 20:07 Dose: 25 mg Morphine Sulfate (Morphine) 2 mg IVPUSH Q2H PRN PRN Reason: Breakthrough Pain Naloxone HCl (Narcan) 0.1 mg IVPUSH Q5M PRN PRN Reason: Oversedation Ondansetron HCl (Zofran) 4 mg IVPUSH Q6H PRN PRN Reason: Nausea/Vomiting Oxycodone HCl (Oxycodone) 5 - 10 mg PO Q4H PRN PRN Reason: Pain Last Admin: 11/29/19 04:46 Dose: 5 mg Rivaroxaban (Xarelto) 10 mg PO DAILY [facility] Rosuvastatin Calcium (Crestor) 20 mg PO DAILY [facility] Senna (Senna) 8.6 mg PO BID PRN PRN Reason: Constipation Discontinued Medications Acetaminophen (Tylenol) 975 mg PO ONETIME [facility] Stop: 11/28/19 16:00 Last Admin: 11/28/19 06:24 Dose: 975 mg Albuterol (Proventil Neb Soln) 2.5 mg NEB ONETIME PRN PRN Reason: bronchodilation Stop: 11/28/19 18:00 Last Admin: 11/28/19 06:57 Dose: 2.5 mg Albuterol (Proventil Neb Soln) 2.5 mg NEB ONETIME PRN PRN Reason: improve oxygenation Stop: 11/28/19 11:00 Bupivacaine HCl (Sensorcaine-Mpf 0.25%) Confirm Administered Dose 30 ml .ROUTE .STK-MED ONE Stop: 11/28/19 06:12 Last Admin: 11/28/19 08:43 Dose: 30 ml Cefazolin Sodium (Ancef) Confirm Administered Dose 2 gm .ROUTE .STK-MED ONE Stop: 11/28/19 06:01 Cefazolin Sodium (Ancef) Confirm Administered Dose 2 gm .ROUTE .STK-MED ONE Stop: 11/28/19 06:11 Last Admin: 11/28/19 08:38 Dose: 2 gm Morphine Sulfate 8 mg/Epinephrine HCl 0.3 mg/Cefuroxime Sodium 750 mg/Ketorolac Tromethamine 30 mg/Sodium Chloride 27.9 ml 0 mg .XX ONETIME ONE Stop: 11/28/19 07:31 Last Admin: 11/28/19 16:26 Dose: Not Given Diphenhydramine HCl (Benadryl) 25 mg IVPUSH Q6H PRN PRN Reason: pruritis Stop: 11/28/19 12:00 Ephedrine Sulfate (Ephedrine Sulfate) 5 mg IVPUSH ASDIRECTED PRN PRN Reason: Hypotension Stop: 11/28/19 12:00 Ephedrine Sulfate (Ephedrine In Ns) Confirm Administered Dose 25 mg .ROUTE .STK- MED ONE Stop: 11/28/19 07:42 Epinephrine HCl (Adrenalin) Confirm Administered Dose 1 mg .ROUTE .STK-MED ONE Stop: 11/28/19 05:47 Fentanyl (Sublimaze) Confirm Administered Dose 100 mcg .ROUTE .STK-MED ONE Stop: 11/28/19 06:02 Fentanyl (Sublimaze) 50 mcg IVPUSH Q5M PRN PRN Reason: Pain Stop: 11/28/19 10:00 Hydromorphone HCl (Dilaudid) 0.5 mg IVPUSH Q15M PRN PRN Reason: Pain (severe 7-10) Stop: 11/28/19 10:00 Lactated Ringer's (Ringers, Lactated) 1,000 mls @ 125 mls/hr IV ASDIRECTED [facility] Stop: 11/28/19 23:00 Last Admin: 11/28/19 06:37 Dose: 125 mls/hr Lidocaine HCl (Xylocaine-Mpf 1%) Confirm Administered Dose 6 mls @ as directed .ROUTE .STK-MED ONE Stop: 11/28/19 06:01 Lactated Ringer's (Ringers, Lactated) Confirm Administered Dose 1,000 mls @ as directed .ROUTE .STK-MED ONE Stop: 11/28/19 06:01 Cefazolin Sodium/Dextrose 2 gm (/ Premix) 50 mls @ 100 mls/hr IV Q8H [facility] Stop: 11/29/19 06:44 Last Admin: 11/29/19 06:02 Dose: 100 mls/hr Lidocaine HCl (Xylocaine-Mpf 1%) Confirm Administered Dose 2 mls @ as directed .ROUTE .STK-MED ONE Stop: 11/28/19 07:29 Phenylephrine HCl 1 mg/ Sodium (Chloride) 10.1 mls @ 1 mls/sec IV TITRATE [facility]; Protocol Stop: 11/28/19 12:00 Lactated Ringer's (Ringers, Lactated) Confirm Administered Dose 1,000 mls @ as directed .ROUTE .STK-MED ONE Stop: 11/28/19 08:29 Iodine (Iodine 2% Mild Tincture) Confirm Administered Dose 30 ml .ROUTE .STK- MED ONE Stop: 11/28/19 06:11 Last Admin: 11/28/19 08:34 Dose: 18 ml Ketamine HCl (Ketalar) Confirm Administered Dose 500 mg .ROUTE .STK-MED ONE Stop: 11/28/19 06:03 Ketorolac Tromethamine (Toradol) Confirm Administered Dose 30 mg .ROUTE .STK- MED ONE Stop: 11/28/19 06:01 Lidocaine/Sodium Bicarbonate (Buffered Lidocaine 1% In Ns 8.4%) 0.25 ml IDERM ONETIME PRN PRN Reason: Prior to IV Start Stop: 11/28/19 18:00 Last Admin: 11/28/19 06:37 Dose: 0.25 ml Midazolam HCl (Versed 1 Mg/Ml) Confirm Administered Dose 2 mg .ROUTE .STK-MED ONE Stop: 11/28/19 06:02 Ondansetron HCl (Zofran) Confirm Administered Dose 4 mg .ROUTE .STK-MED ONE Stop: 11/28/19 06:01 Ondansetron HCl (Zofran) 4 mg IVPUSH ONETIME PRN PRN Reason: Nausea/Vomiting Stop: 11/28/19 11:00 Oxycodone HCl (Oxycontin) 10 mg PO ONETIME [facility] Stop: 11/28/19 18:00 Last Admin: 11/28/19 06:24 Dose: 10 mg Phenylephrine HCl (Phenylephrine In Ns 100 Mcg/Ml) Confirm Administered Dose 1 mg .ROUTE .STK-MED ONE Stop: 11/28/19 06:01 Pregabalin (Lyrica) 50 mg PO ONETIME [facility] Stop: 11/28/19 16:00 Last Admin: 11/28/19 06:25 Dose: 50 mg Propofol (Diprivan 20 Ml) Confirm Administered Dose 400 mg .ROUTE .STK-MED ONE Stop: 11/28/19 06:02 Propofol (Diprivan 20 Ml) Confirm Administered Dose 200 mg .ROUTE .STK-MED ONE Stop: 11/28/19 08:18 Ropivacaine (Naropin 0.5%) Confirm Administered Dose 30 ml .ROUTE .STK-MED ONE Stop: 11/28/19 05:47 Sodium Chloride (Saline Flush) 10 ml FLUSH ASDIRECTED PRN PRN Reason: Keep Vein Open Stop: 11/28/19 18:00 Tranexamic Acid (Cyklokapron) Confirm Administered Dose 1,000 mg .ROUTE .STK- MED ONE Stop: 11/28/19 06:11 Last Admin: 11/28/19 08:49 Dose: 1,000 mg Vancomycin HCl (Vancomycin) Confirm Administered Dose 1 gm .ROUTE .STK-MED ONE Stop: 11/28/19 06:11 Last Admin: 11/28/19 08:45 Dose: 1 gm - Exam Wound/Incisions: Dressing Dry and Intact General: Alert, Cooperative, No Acute Distress Lungs: Normal Respiratory Effort Extremities: Other (NVS intact for BLE. Radha's negative for BLE. Left olecranon bursitis. ) Sepsis Event Note - Evaluation Sepsis Screening Result: No Definite Risk - Focused Exam Vital Signs: Vital Signs Temp Pulse Resp BP Pulse Ox 11/29/19 03:19 98.1 F 82 20 108/74 92 L 11/29/19 00:25 98.2 F 89 18 124/82 94 L 11/28/19 20:07 82 118/79 11/28/19 20:04 98.1 F 82 16 118/79 94 L Date Exam was Performed: 11/29/19 Time Exam was Performed: 07:29 - Problem List Review Problem List Initiated/Reviewed/Updated: Yes - My Orders Last 24 Hours: Active Orders 24 hr Category Date Time Status Patient Status [ADT] Routine ADT 11/28/19 06:36 Active Antiembolic Devices [RC] BID Care 11/28/19 06:35 Active Communication Order [RC] ASDIRECTED Care 11/29/19 07:27 Ordered Oxygen Therapy [RC] ASDIRECTED Care 11/28/19 07:37 Active Oxygen Therapy [RC] PRN Care 11/28/19 06:36 Active Pulse Oximetry [RC] ASDIRECTED Care 11/28/19 07:37 Active RT Incentive Spirometry [RC] Q1HWA Care 11/28/19 06:34 Active Ready for Discharge [RC] PER UNIT ROUTINE Care 11/29/19 07:28 Ordered Vital Signs [RC] Q4HR Care 11/28/19 06:36 Active Consult to Physician [CONS] Routine Cons 11/28/19 06:35 Active OT Evaluation and Treatment [CONS] Routine Cons 11/28/19 06:34 Active PT Evaluation and Treatment [CONS] Routine Cons 11/28/19 06:34 Active Regular Diet [DIET] Diet 11/28/19 Lunch Active Cholecalciferol (Vitamin D3) [Vitamin D3] Med 11/29/19 09:00 Active 5,000 unit PO DAILY Cyclobenzaprine [Flexeril] Med 11/28/19 06:34 Active 10 mg PO TID PRN Docusate Sodium [Colace] Med 11/28/19 21:00 Active 100 mg PO BID Famotidine [Pepcid] Med 11/28/19 21:00 Active 20 mg PO Q12H Ketorolac [Toradol] Med 11/28/19 13:00 Active 15 mg IVPUSH Q6H PRN Levothyroxine [Levothroid] Med 11/29/19 06:00 Active 137 mcg PO ACBREAKFAST Magnesium Hydroxide [Milk of Magnesia] Med 11/28/19 06:35 Active 30 ml PO BID PRN Metoprolol Tartrate [Lopressor] Med 11/28/19 21:00 Active 25 mg PO BID Morphine Med 11/28/19 06:35 Active 2 mg IVPUSH Q2H PRN Naloxone [Narcan] Med 11/28/19 06:35 Active 0.1 mg IVPUSH Q5M PRN Ondansetron [Zofran] Med 11/28/19 06:35 Active 4 mg IVPUSH Q6H PRN Rivaroxaban [Xarelto] Med 11/29/19 09:00 Pending 10 mg PO DAILY Rosuvastatin [Crestor] Med 11/29/19 09:00 Active 20 mg PO DAILY Sennosides [Senna] Med 11/28/19 06:35 Active 8.6 mg PO BID PRN bisacodyL [Dulcolax] Med 11/28/19 06:35 Active 5 mg PO DAILY PRN oxyCODONE Med 11/28/19 06:35 Active 5 - 10 mg PO Q4H PRN Antiembolic Hose [OM.PC] Per Unit Routine Oth 11/28/19 06:38 Ordered Ice Therapy [OM.PC] Per Unit Routine Oth 11/28/19 06:37 Ordered Sequential Compression Device [OM.PC] Per Unit Routine Oth 11/28/19 06:34 Ordered Resuscitation Status Routine Resus Stat 11/28/19 06:35 Ordered Medication Orders Bisacodyl (Dulcolax) 5 mg PO DAILY PRN PRN Reason: Constipation Cholecalciferol (Vitamin D3) 5,000 unit PO DAILY [facility] Cyclobenzaprine HCl (Flexeril) 10 mg PO TID PRN PRN Reason: Spasms Last Admin: 11/29/19 03:23 Dose: 10 mg Docusate Sodium (Colace) 100 mg PO BID [facility] Last Admin: 11/28/19 20:08 Dose: 100 mg Famotidine (Pepcid) 20 mg PO Q12H [facility] Last Admin: 11/28/19 20:06 Dose: 20 mg Ketorolac Tromethamine (Toradol) 15 mg IVPUSH Q6H PRN PRN Reason: Pain Last Admin: 11/29/19 00:32 Dose: 15 mg Levothyroxine Sodium (Levothroid) 137 mcg PO ACBREAKFAST [facility] Last Admin: 11/29/19 06:03 Dose: 137 mcg Magnesium Hydroxide (Milk Of Magnesia) 30 ml PO BID PRN PRN Reason: Constipation Metoprolol Tartrate (Lopressor) 25 mg PO BID [facility] Last Admin: 11/28/19 20:07 Dose: 25 mg Morphine Sulfate (Morphine) 2 mg IVPUSH Q2H PRN PRN Reason: Breakthrough Pain Naloxone HCl (Narcan) 0.1 mg IVPUSH Q5M PRN PRN Reason: Oversedation Ondansetron HCl (Zofran) 4 mg IVPUSH Q6H PRN PRN Reason: Nausea/Vomiting Oxycodone HCl (Oxycodone) 5 - 10 mg PO Q4H PRN PRN Reason: Pain Last Admin: 11/29/19 04:46 Dose: 5 mg Admin: 11/28/19 21:31 Dose: 10 mg Admin: 11/28/19 17:15 Dose: 5 mg Admin: 11/28/19 13:16 Dose: 10 mg Admin: 11/28/19 10:03 Dose: 10 mg Rivaroxaban (Xarelto) 10 mg PO DAILY [facility] Rosuvastatin Calcium (Crestor) 20 mg PO DAILY [facility] Senna (Senna) 8.6 mg PO BID PRN PRN Reason: Constipation - Assessment Assessment (Free Text/Narrative):: POD#1 - 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 Hgb 13.0. 2. Xarelto 10mg PO daily (hx tobacco use), frequent mobility, TEDs. 3. Discharge to home today. 4. Outpatient PT. The pt's case was discussed with Dr. Hale.
--- NOTE | 2019-11-29 08:11 | PCM.DCSUM1 ---
Discharge Summary - Hospital Course Brief History: Juan is a 64 yo male who underwent revision of right uni- compartmental knee to right TKA with Dr. Hale on 11-28-19. The procedure was completed under spinal anesthesia with MAC. The pt tolerated the procedure well and was admitted to the Medical-Surgical Unit. Medical management was provided by the Hospitalist service. Telemetry was ordered. The pt's Hospital course was uneventful. The pt's Hgb on POD#1 was 13.0. On POD#1, Xarelto 10mg PO daily was initiated for VTE prophylaxis. SCDs and TEDs were also ordered. A Mepilex dressing was placed at the incision site at the time of surgery and remained clean and dry. The pt participated in P.T. and O.T. and progressed well. The pt was allowed to WBAT and used a FWW for mobility. On POD#1, the pt was deemed appropriate to discharge to home with his . - Discharge Data Discharge Date: 11/29/19 Discharge Disposition: Home, Self-Care 01 Condition: Good - Referral to Home Health Primary Care Physician: Castillo Huston MD - Patient Summary/Data Consults: Consultations 11/28/19 06:34 OT Evaluation and Treatment [CONS] Routine PT Evaluation and Treatment [CONS] Routine 11/28/19 06:35 Consult to Physician [CONS] Routine - Patient Instructions Diet: Usual Diet as Tolerated Activity: Apply Ice, As Tolerated, Elevate Extremity, Full Weight Bearing Driving: Do Not Drive Showering/Bathing: May Shower Wound/Incision Care: Keep Operative Site/Wound Site Clean and Dry, Do NOT Change Dressing Notify Provider of: Fever, Increased Pain, Swelling and Redness, Drainage, Nausea and/or Vomiting Other/Special Instructions: Please get up and moving around EVERY HOUR while awake. This helps to prevent blood clots. Please use your walker and have help with mobility as needed. Take a short walk in your home every hour while awake. Please take the Xarelto blood thinner medication daily as directed. At home, please complete the exercises that you learned during the Hospital stay. Schedule for physical therapy. Use the pain medication as needed. The medication may cause drowsiness and constipation. Contact your primary care provider for instructions if you are constipated. You may use a stool softener like docusate sodium or Colace 100mg twice daily and/or a laxative like Miralax daily for constipation. Increase your water and fiber intake while you are using the pain medication. Discontinue use of the pain medication as soon as able. Please do not use other medications that may cause drowsiness (other pain medications, anxiety pills, cold medications, sleeping pills, etc) while using the prescription pain medication. Do not use alcohol while using the pain medication. At this time, please do not use ibuprofen (Motrin, Advil) or naproxen (Aleve) for pain management as you are using the Xarelto. When the Xarelto course is completed, you could use ibuprofen or naproxen for pain management (if this is allowed by your primary care provider). Wear the ALBERTO hose during the day and you may remove these at night. Elevate the limb to decrease swelling. Place ice to the area often. Place a towel between your skin and the blue pad. Use the incentive spirometer often. Take deep breaths throughout the day. Please keep the dressing in place until follow-up. Notify the Clinic if the dressing becomes saturated. Increase your protein intake while you are healing. Call the Clinic with questions or concerns - [phone]. - Discharge Plan *PRESCRIPTION DRUG MONITORING PROGRAM REVIEWED*: No *COPY OF PRESCRIPTION DRUG MONITORING REPORT IN PATIENT BAKARI: No Home Medications: Home Meds Levothyroxine Sodium 137 mcg PO DAILY 01/23/19 [History] Rosuvastatin Calcium 20 mg PO DAILY 01/23/19 [History] Cholecalciferol (Vitamin D3) [Vitamin D3] 5,000 unit PO DAILY tablet 01/24/19 [ Rx] Aspirin 325 mg PO DAILY 11/25/19 [History] Cyanocobalamin (Vitamin B12) [Vitamin B12] 1,000 mcg SQ Q30D 11/25/19 [History] Metoprolol Tartrate 25 mg PO BID 11/25/19 [History] Cyclobenzaprine [Flexeril] 10 mg PO TID PRN tablet 11/29/19 [Rx] Docusate Sodium [Colace] 100 mg PO BID cap 11/29/19 [Rx] Famotidine [Pepcid] 20 mg PO Q12H tablet 11/29/19 [Rx] Magnesium Hydroxide [Milk of Magnesia] 30 ml PO BID PRN cup 11/29/19 [Rx] Rivaroxaban [Xarelto] 10 mg PO DAILY tablet 11/29/19 [Rx] Sennosides [Senna] 8.6 mg PO BID PRN tablet 11/29/19 [Rx] bisacodyL [Dulcolax] 5 mg PO DAILY PRN tablet 11/29/19 [Rx] oxyCODONE 5 - 10 mg PO Q4H PRN tablet 11/29/19 [Rx] Patient Handouts: Rivaroxaban oral tablets, Total Knee Replacement, Easy-to- Read Referrals: Ailyn Obrien PA-C [Physician Senior Database Administrator] - - Discharge Summary/Plan Comment DC Time >30 min.: No - Patient Data Vitals - Most Recent: Last Vital Signs Temp 98.1 F 11/29/19 03:19 Pulse 82 11/29/19 03:19 Resp 20 11/29/19 03:19 BP 108/74 11/29/19 03:19 Pulse Ox 92 L 11/29/19 03:19 Weight - Most Recent: 211 lb I&O - Last 24 hours: Intake & Output 11/28/19 11/29/19 11/29/19 22:59 06:59 14:59 Intake Total 1400 400 Output Total 900 450 Balance 500 -50 Lab Results - Last 24 hrs: Laboratory Results - last 24 hr 11/29/19 11/29/19 Range/Units 06:04 06:04 WBC 7.50 (4.23-9.07) K/mm3 RBC 4.11 L (4.63-6.08) M/mm3 Hgb 13.0 L (13.7-17.5) gm/dl Hct 40.8 (40.1-51.0) % MCV 99.3 H (79.0-92.2) fl MCH 31.6 (25.7-32.2) pg MCHC 31.9 L (32.2-35.5) g/dl RDW Std Deviation 47.8 H (35.1-43.9) fL Plt Count 204 (163-337) K/mm3 MPV 9.7 (9.4-12.3) fl Sodium 136 (136-145) mEq/L Potassium 4.3 (3.5-5.1) mEq/L Chloride 102 (98-107) mEq/L Carbon Dioxide 24 (21-32) mEq/L Anion Gap 14.3 (5-15) BUN 22 H (7-18) mg/dL Creatinine 1.2 (0.7-1.3) mg/dL Est Cr Clr Drug Dosing 56.12 mL/min Estimated GFR (MDRD) > 60 (>60) mL/min BUN/Creatinine Ratio 18.3 H (14-18) Glucose 121 H (80-115) mg/dL Calcium 8.5 (8.5-10.1) mg/dL Total Bilirubin 0.5 (0.2-1.0) mg/dL AST 22 (15-37) U/L ALT 29 (16-63) U/L Alkaline Phosphatase 95 (46-116) U/L Total Protein 6.6 (6.4-8.2) g/dl Albumin 3.0 L (3.4-5.0) g/dl Globulin 3.6 gm/dL Albumin/Globulin Ratio 0.8 L (1-2) Med Orders - Current: Current Medications Bisacodyl (Dulcolax) 5 mg PO DAILY PRN PRN Reason: Constipation Cholecalciferol (Vitamin D3) 5,000 unit PO DAILY [facility] Cyclobenzaprine HCl (Flexeril) 10 mg PO TID PRN PRN Reason: Spasms Last Admin: 11/29/19 03:23 Dose: 10 mg Docusate Sodium (Colace) 100 mg PO BID [facility] Last Admin: 11/28/19 20:08 Dose: 100 mg Famotidine (Pepcid) 20 mg PO Q12H [facility] Ketorolac Tromethamine (Toradol) 15 mg IVPUSH Q6H PRN PRN Reason: Pain Last Admin: 11/29/19 00:32 Dose: 15 mg Levothyroxine Sodium (Levothroid) 137 mcg PO ACBREAKFAST [facility] Last Admin: 11/29/19 06:03 Dose: 137 mcg Magnesium Hydroxide (Milk Of Magnesia) 30 ml PO BID PRN PRN Reason: Constipation Metoprolol Tartrate (Lopressor) 25 mg PO BID [facility] Last Admin: 11/28/19 20:07 Dose: 25 mg Morphine Sulfate (Morphine) 2 mg IVPUSH Q2H PRN PRN Reason: Breakthrough Pain Naloxone HCl (Narcan) 0.1 mg IVPUSH Q5M PRN PRN Reason: Oversedation Ondansetron HCl (Zofran) 4 mg IVPUSH Q6H PRN PRN Reason: Nausea/Vomiting Oxycodone HCl (Oxycodone) 5 - 10 mg PO Q4H PRN PRN Reason: Pain Last Admin: 11/29/19 04:46 Dose: 5 mg Rivaroxaban (Xarelto) 10 mg PO DAILY [facility] Rosuvastatin Calcium (Crestor) 20 mg PO DAILY [facility] Senna (Senna) 8.6 mg PO BID PRN PRN Reason: Constipation Discontinued Medications Acetaminophen (Tylenol) 975 mg PO ONETIME [place] Stop: 11/28/19 16:00 Last Admin: 11/28/19 06:24 Dose: 975 mg Albuterol (Proventil Neb Soln) 2.5 mg NEB ONETIME PRN PRN Reason: bronchodilation Stop: 11/28/19 18:00 Last Admin: 11/28/19 06:57 Dose: 2.5 mg Albuterol (Proventil Neb Soln) 2.5 mg NEB ONETIME PRN PRN Reason: improve oxygenation Stop: 11/28/19 11:00 Bupivacaine HCl (Sensorcaine-Mpf 0.25%) Confirm Administered Dose 30 ml .ROUTE .STK-MED ONE Stop: 11/28/19 06:12 Last Admin: 11/28/19 08:43 Dose: 30 ml Cefazolin Sodium (Ancef) Confirm Administered Dose 2 gm .ROUTE .STK-MED ONE Stop: 11/28/19 06:01 Cefazolin Sodium (Ancef) Confirm Administered Dose 2 gm .ROUTE .STK-MED ONE Stop: 11/28/19 06:11 Last Admin: 11/28/19 08:38 Dose: 2 gm Morphine Sulfate 8 mg/Epinephrine HCl 0.3 mg/Cefuroxime Sodium 750 mg/Ketorolac Tromethamine 30 mg/Sodium Chloride 27.9 ml 0 mg .XX ONETIME ONE Stop: 11/28/19 07:31 Last Admin: 11/28/19 16:26 Dose: Not Given Diphenhydramine HCl (Benadryl) 25 mg IVPUSH Q6H PRN PRN Reason: pruritis Stop: 11/28/19 12:00 Ephedrine Sulfate (Ephedrine Sulfate) 5 mg IVPUSH ASDIRECTED PRN PRN Reason: Hypotension Stop: 11/28/19 12:00 Ephedrine Sulfate (Ephedrine In Ns) Confirm Administered Dose 25 mg .ROUTE .ST- MED ONE Stop: 11/28/19 07:42 Epinephrine HCl (Adrenalin) Confirm Administered Dose 1 mg .ROUTE .ST-MED ONE Stop: 11/28/19 05:47 Famotidine (Pepcid) 20 mg PO Q12H [facility] Last Admin: 11/28/19 20:06 Dose: 20 mg Fentanyl (Sublimaze) Confirm Administered Dose 100 mcg .ROUTE .ST-MED ONE Stop: 11/28/19 06:02 Fentanyl (Sublimaze) 50 mcg IVPUSH Q5M PRN PRN Reason: Pain Stop: 11/28/19 10:00 Hydromorphone HCl (Dilaudid) 0.5 mg IVPUSH Q15M PRN PRN Reason: Pain (severe 7-10) Stop: 11/28/19 10:00 Lactated Ringer's (Ringers, Lactated) 1,000 mls @ 125 mls/hr IV ASDIRECTED [facility] Stop: 11/28/19 23:00 Last Admin: 11/28/19 06:37 Dose: 125 mls/hr Lidocaine HCl (Xylocaine-Mpf 1%) Confirm Administered Dose 6 mls @ as directed .ROUTE .ST-MED ONE Stop: 11/28/19 06:01 Lactated Ringer's (Ringers, Lactated) Confirm Administered Dose 1,000 mls @ as directed .ROUTE .ST-MED ONE Stop: 11/28/19 06:01 Cefazolin Sodium/Dextrose 2 gm (/ Premix) 50 mls @ 100 mls/hr IV Q8H [facility] Stop: 11/29/19 06:44 Last Admin: 11/29/19 06:02 Dose: 100 mls/hr Lidocaine HCl (Xylocaine-Mpf 1%) Confirm Administered Dose 2 mls @ as directed .ROUTE .ST-MED ONE Stop: 11/28/19 07:29 Phenylephrine HCl 1 mg/ Sodium (Chloride) 10.1 mls @ 1 mls/sec IV TITRATE [place]; Protocol Stop: 11/28/19 12:00 Lactated Ringer's (Ringers, Lactated) Confirm Administered Dose 1,000 mls @ as directed .ROUTE .ST-MED ONE Stop: 11/28/19 08:29 Iodine (Iodine 2% Mild Tincture) Confirm Administered Dose 30 ml .ROUTE .STK- MED ONE Stop: 11/28/19 06:11 Last Admin: 11/28/19 08:34 Dose: 18 ml Ketamine HCl (Ketalar) Confirm Administered Dose 500 mg .ROUTE .STK-MED ONE Stop: 11/28/19 06:03 Ketorolac Tromethamine (Toradol) Confirm Administered Dose 30 mg .ROUTE .STK- MED ONE Stop: 11/28/19 06:01 Lidocaine/Sodium Bicarbonate (Buffered Lidocaine 1% In Ns 8.4%) 0.25 ml IDERM ONETIME PRN PRN Reason: Prior to IV Start Stop: 11/28/19 18:00 Last Admin: 11/28/19 06:37 Dose: 0.25 ml Midazolam HCl (Versed 1 Mg/Ml) Confirm Administered Dose 2 mg .ROUTE .STK-MED ONE Stop: 11/28/19 06:02 Ondansetron HCl (Zofran) Confirm Administered Dose 4 mg .ROUTE .ST-MED ONE Stop: 11/28/19 06:01 Ondansetron HCl (Zofran) 4 mg IVPUSH ONETIME PRN PRN Reason: Nausea/Vomiting Stop: 11/28/19 11:00 Oxycodone HCl (Oxycontin) 10 mg PO ONETIME [place] Stop: 11/28/19 18:00 Last Admin: 11/28/19 06:24 Dose: 10 mg Phenylephrine HCl (Phenylephrine In Ns 100 Mcg/Ml) Confirm Administered Dose 1 mg .ROUTE .STK-MED ONE Stop: 11/28/19 06:01 Pregabalin (Lyrica) 50 mg PO ONETIME [place] Stop: 11/28/19 16:00 Last Admin: 11/28/19 06:25 Dose: 50 mg Propofol (Diprivan 20 Ml) Confirm Administered Dose 400 mg .ROUTE .STK-MED ONE Stop: 11/28/19 06:02 Propofol (Diprivan 20 Ml) Confirm Administered Dose 200 mg .ROUTE .ST-MED ONE Stop: 11/28/19 08:18 Ropivacaine (Naropin 0.5%) Confirm Administered Dose 30 ml .ROUTE .STK-MED ONE Stop: 11/28/19 05:47 Sodium Chloride (Saline Flush) 10 ml FLUSH ASDIRECTED PRN PRN Reason: Keep Vein Open Stop: 11/28/19 18:00 Tranexamic Acid (Cyklokapron) Confirm Administered Dose 1,000 mg .ROUTE .STK- MED ONE Stop: 11/28/19 06:11 Last Admin: 11/28/19 08:49 Dose: 1,000 mg Vancomycin HCl (Vancomycin) Confirm Administered Dose 1 gm .ROUTE .STK-MED ONE Stop: 11/28/19 06:11 Last Admin: 11/28/19 08:45 Dose: 1 gm
[2019-11-29] MEDS ORDERED: Famotidine 10 MG Tab PO SCH (09:00)
[2019-11-29] MEDS ORDERED: Cholecalciferol (Vitamin D3) 5,000 UNIT Tab PO SCH (09:00)
[2019-11-29] MEDS ORDERED: Rivaroxaban 10 MG Tab PO SCH (09:00)
[2019-11-29] MEDS ORDERED: Rosuvastatin 10 MG Tab PO SCH (09:00)
--- NOTE | 2019-11-29 09:19 | PCM48HPAN ---
Post Anesthesia Note - EVALUATION WITHIN 48HRS OF ANESTHETIC Vital Signs in Normal Range: Yes Patient Participated in Evaluation: Yes Respiratory Function Stable: Yes Airway Patent: Yes Cardiovascular Function Stable: Yes Hydration Status Stable: Yes Pain Control Satisfactory: Yes Nausea and Vomiting Control Satisfactory: Yes (Up in bathroom- Denies nausea) Mental Status Recovered: Yes Vital Signs: Last Vital Signs Temp 98.1 F 11/29/19 03:19 Pulse 82 11/29/19 03:19 Resp 20 11/29/19 03:19 BP 108/74 11/29/19 03:19 Pulse Ox 92 L 11/29/19 03:19
[2019-11-29] MEDS: Metoprolol Tartrate 25 MG Tab PO SCH (09:36)
[2019-11-29] MEDS: Docusate Sodium 100 MG Cap PO SCH (09:37)
[2019-11-29 09:40] VITALS: BP 124/51; PULSE 78
--- NOTE | 2019-12-01 07:07 | PCM.OPNOTE ---
- General Post-Op/Procedure Note Date of Surgery/Procedure: 11/28/19 Operative Procedure(s): revision right total knee arthroplasty Pre Op Diagnosis: painful right uni-condylar knee arthroplasty Post-Op Diagnosis: Same Anesthesia Technique: Local, MAC, Spinal Primary Surgeon: Carroll Hale Anesthesia Provider: Vaishnavi Espinoza Bottom Sprayer: Ailyn Obrien Bottom Sprayer: Alejandra Landry EBL in mLs: 5 Complications: None Condition: Good Free Text/Narrative:: 03/27 35x10 11mm
--- NOTE | 2019-12-01 08:16 | OR ---
DATE OF OPERATION: 11/28/2019 SURGEON: Carroll Hale MD OPERATION PERFORMED: Revision right total knee arthroplasty. PREOPERATIVE DIAGNOSIS: Painful right unicondylar knee arthroplasty. POSTOPERATIVE DIAGNOSIS: Painful right unicondylar knee arthroplasty. ANESTHESIA: Local MAC with spinal. ANESTHESIA PROVIDER: Vaishnavi Espinoza CRNA BODY AND FENDER MECHANIC APPRENTICE: Ailyn Obrien PA-C, and Alejandra Landry LPN. ESTIMATED BLOOD LOSS: 5 mL. COMPLICATIONS: None. CONDITION: Stable. IMPLANTS: 1. Jose size 5 cemented PS femur. 2. [place] size 5 cemented [place] tibial baseplate. 3. [place] size 5 11 mm PS X3 polyethylene. 4. Jose size 35 x 10 mm cemented asymmetric patella. DESCRIPTION OF PROCEDURE: The patient was identified in the preop holding area. Proper site was marked and identified by surgeon. The patient was taken back to the operating theater where after adequate anesthesia, the patient had a nonsterile tourniquet applied to the right lower extremity. Right lower extremity was then sterilely prepped and draped in the usual sterile fashion. OR time-out was performed. The patient received 2 g of IV Ancef. At this time, right lower extremity was exsanguinated. Tourniquet was insufflated to 250 mmHg. Previous incision was utilized and extended for regular total knee arthroplasty incision. A medial parapatellar arthrotomy was then created. Deep fibers of the MCL were raised. An anterior fat pad was resected. Attention was turned to the patella. At this time, it measured a 24 and resected to a 14 for a 35 x 10 mm patella. Drill holes were then drilled and found to be adequate. The floating polyethylene platform was then removed for the unicondylar knee arthroplasty. At this time, I turned the attention to the femoral condyle component. Using a reciprocating saw as well as a flexible osteotomes, I was able to remove the femoral component with no bone loss. Attention was turned then to the tibial component again with the use of reciprocating saw and a flexible osteotome, I was able to remove the tibial component with very little minimal bone loss. Drill hole was then placed in the old footprint on the femoral side of the PCL just anterior to it and the flexible intramedullary femoral vega was placed with the distal femoral cutting guide. At this time, it was found that I would have to take 10 to make a good cut for a cleanest cut on the medial femoral condyle, so a 10 mm was taken off the distal femur. It was found to be an adequate resection. 4-in-1 cutting block was placed and rotation was held with the epicondylar access and Whites[place] line. Drill holes were then drilled for a size 5 femur and the anterior posterior and anterior and posterior chamfer cuts were then completed and found to be adequate with no need for augments. The box cut was then completed for a size 5 and attention was turned to the tibia. Drill was placed just medial to the lateral tibial spine and the rigid intramedullary vega was placed in the tibia and the intramedullary tibial resection guide was placed. At this time, I measured for 2 mm off the medial side and this was resected and found to be an adequate resection both medial and lateral side. Any remaining meniscus was removed at this time, as well as any osteophytes. Trial implants were then placed, and there was no need for it to augment. The size 5 PS femur and size 5 base plate were placed along with a trial 11 mm spacer and had full range of motion, full extension, full flexion, and no liftoff noted. At this time, all cut surfaces were irrigated. The tibia was stamped and drilled in the proper rotation. Cement was mixed on the back table after all cut surfaces were completely dried. The size 5 universal tibial baseplate was cemented into place. Next, the size 5 PS femur was cemented into place and an 11 mm PS X3 polyethylene was impacted into place. The patient's knee was brought into full extension. All excess cement was removed and a 35 x 10 mm patella was cemented into place. 1 L dilute Betadine solution was then irrigated through the knee along with 3 L pulse lavage irrigation with Ancef. Topical tranexamic acid and vancomycin powder were then placed. A periarticular injection was also completed. #2 barbed suture was used for closure of the medial parapatellar arthrotomy, 2-0 Vicryl was used subcutaneously, and Prineo was used for the skin. The patient tolerated the procedure well and was sent to PACU in stable condition. SAY /[id number]
== END 2019-11-29 12:53 | disposition home or self-care (01) | DRG 302 ==
LOC: JD.MS 06:00
PROVIDERS: ADMIT Orthopaedic Surgery; ATTEND Orthopaedic Surgery
PROC: 0SPC0JZ Removal of Synthetic Substitute from Right Knee Joint, Open Approach (ICD-10-PCS; principal; 2019-11-28)
PROC: 0SRC0J9 Replacement of Right Knee Joint with Synthetic Substitute, Cemented, Open Approach (ICD-10-PCS; 2019-11-28)
DX: M17.11 Unilateral primary osteoarthritis, right knee (principal); I25.10 Atherosclerotic heart disease of native coronary artery without angina pectoris; I10 Essential (primary) hypertension; E78.5 Hyperlipidemia, unspecified; E03.9 Hypothyroidism, unspecified; E66.9 Obesity, unspecified; K57.90 Diverticulosis of intestine, part unspecified, without perforation or abscess without bleeding; I97.89 Other postprocedural complications and disorders of the circulatory system, not elsewhere classified; I49.1 Atrial premature depolarization; H54.7 Unspecified visual loss; Z96.643 Presence of artificial hip joint, bilateral; Z96.651 Presence of right artificial knee joint; Z87.891 Personal history of nicotine dependence; Z95.1 Presence of aortocoronary bypass graft; Z90.49 Acquired absence of other specified parts of digestive tract; Z85.828 Personal history of other malignant neoplasm of skin; Z98.890 Other specified postprocedural states
CPT/HCPCS: 01402; 36415; 64450; 73560-26-RT; 73560-RT; 80053; 85027; 85610; 85730; 94640; 97110-GP; 97116-GP; 97161-GP; 97165-GO; 97535-GO; 99222; 99232; A9270-GY; C1713; C1776; J0171; J0690; J0697; J1885; J2001; J2250; J2270; J2370; J2405; J2704; J2795; J3010; J3370; J3490; J7050; J7120

== ENCOUNTER 2019-12-03 11:00 | Emergency (ER) | payer BC ==
[2019-12-03 11:14] VITALS: BP 147/90; PULSE 82
[2019-12-03] MEDS ORDERED: Sodium Chloride 0.9% 10 ML Syringe FLUSH PRN (11:25)
[2019-12-03] MEDS ORDERED: HYDROmorphone 1 MG/ML Syringe IVPUSH ONE (11:28)
--- NOTE | 2019-12-03 11:34 | EDM.PDOC ---
ED HPI GENERAL MEDICAL PROBLEM - General Chief Complaint: Lower Extremity Injury/Pain Stated Complaint: SWELLING AFTER KNEE REPLACEMENT Time Seen by Provider: 12/03/19 11:03 Source of Information: Reports: Patient, Old Records, RN Notes Reviewed, Significant Other History Limitations: Reports: No Limitations - History of Present Illness INITIAL COMMENTS - FREE TEXT/NARRATIVE: Patient is a 64-year-old male who presents to the ED today for the evaluation of a right total knee replacement, done Thursday, November 28, 2019. He notes this was done by Dr. Hale at this facility. He states that the surgery went well, he stayed 1 night in the hospital with no complications and was discharged home with conservative management. The patient notes that he has been doing discharge instructions as documented, but he developed increased pain and swelling, with some erythema to his right knee, and pain and swelling into his right ankle. The notes that this was not present yesterday, and this developed overnight. Patient states that the pain is much worse with ambulation. He took oxycodone 5 mg at 8 AM this morning, this did not help relieve much of the pain. He denies any fevers or chills, nausea/vomiting/ diarrhea, any chest pain or shortness of breath. Patient is taking Xarelto, 10 mg daily. Of note the patient did have a CABG x 4 in August, his chromium plater is Dr. Murphy, primary care provider is Dr. Huston. 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: Thrombolytics/Fibrinolytics (Xarelto 10mg), Other (see below) (Oxycodone 5mg @ 8AM) Right Knee Pain Score (Numeric/FACES): 8 - Related Data Allergies Allergy/AdvReac Type Severity Reaction Status Date / Time No Known Allergies Allergy Verified 12/03/19 11:11 Home Meds: Home Meds Levothyroxine Sodium 137 mcg PO DAILY 01/23/19 [History] Rosuvastatin Calcium 20 mg PO DAILY 01/23/19 [History] Cholecalciferol (Vitamin D3) [Vitamin D3] 5,000 unit PO DAILY tablet 01/24/19 [ Rx] Aspirin 325 mg PO DAILY 11/25/19 [History] Cyanocobalamin (Vitamin B12) [Vitamin B12] 1,000 mcg SQ Q30D 11/25/19 [History] Metoprolol Tartrate 25 mg PO BID 11/25/19 [History] Cyclobenzaprine [Flexeril] 10 mg PO TID PRN tablet 11/29/19 [Rx] Docusate Sodium [Colace] 100 mg PO BID cap 11/29/19 [Rx] Famotidine [Pepcid] 20 mg PO Q12H tablet 11/29/19 [Rx] Magnesium Hydroxide [Milk of Magnesia] 30 ml PO BID PRN cup 11/29/19 [Rx] Rivaroxaban [Xarelto] 10 mg PO DAILY tablet 11/29/19 [Rx] Sennosides [Senna] 8.6 mg PO BID PRN tablet 11/29/19 [Rx] bisacodyL [Dulcolax] 5 mg PO DAILY PRN tablet 11/29/19 [Rx] oxyCODONE 5 - 10 mg PO Q4H PRN tablet 11/29/19 [Rx] Past Medical History HEENT History: Reports: Impaired Vision Cardiovascular History: Reports: CAD, High Cholesterol, Hypertension Other Cardiovascular History: Patient has known sinus arrythmia with PACs, Abnormal stress test Gastrointestinal History: Reports: Diverticulosis Musculoskeletal History: Reports: Fracture, Osteoarthritis Other Musculoskeletal History: bursitis in L elbow- drained prior to surgery Neurological History: Reports: Other (See Below) Other Neuro History: syncope Endocrine/Metabolic History: Reports: Hypothyroidism, Obesity/BMI 30+ Oncologic (Cancer) History: Reports: Other (See Below) Other Oncologic History: skin cancer of lip Dermatologic History: Reports: Other (See Below) 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 viltiligo - Past Surgical History HEENT Surgical History: Reports: Eye Surgery Other HEENT Surgeries/Procedures: blepharoplasty, bilat. Cardiovascular Surgical History: Reports: Coronary Artery Bypass (CABG x 26 Aug 2019) GI Surgical History: Reports: Appendectomy, Colonoscopy Other GI Surgeries/Procedures: Familial history of colon cancer Neurological Surgical History: Reports: Scoliosis Musculoskeletal Surgical History: Reports: Arthroscopic Procedure, Hip Replacement, Joint Replacement Other Musculoskeletal Surgeries/Procedures:: R total knee replacement 11/28/2019. right rotator cuff repair, left total shoulder, bilateral thumb repair, clavicle fracture, bilateral total hip replacements Social & Family History - Family History Other GI Family History: Mother had colon cancer Oncologic: Reports: Colon Other Oncologic Family History: Mother had colon cancer - Tobacco Use Smoking Status *Q: Former Smoker Used Tobacco, but Quit: Yes Month/Year Tobacco Last Used: august - Caffeine Use Caffeine Use: Reports: Coffee, Soda Other Caffeine Use: 1 pot/day. 2 cans/day Review of Systems - Review of Systems Review Of Systems: See Below Constitutional: Denies: Chills, Fever Respiratory: Denies: Shortness of Breath, Cough Cardiovascular: Denies: Chest Pain GI/Abdominal: Denies: Diarrhea, Nausea, Vomiting Musculoskeletal: Reports: Joint Pain (R knee and ankle), Joint Swelling (R knee and ankle) Skin: Reports: Erythema (R knee near incision) Neurological: Denies: Numbness, Tingling ED EXAM, GENERAL - Physical Exam Exam: See Below Exam Limited By: No Limitations General Appearance: Alert, WD/WN, No Apparent Distress Throat/Mouth: Normal Inspection, Normal Lips, Normal Teeth, Normal Gums, Normal Oropharynx, Normal Voice, No Airway Compromise Head: Atraumatic, Normocephalic Neck: Normal Inspection Respiratory/Chest: No Respiratory Distress, Lungs Clear, Normal Breath Sounds, No Accessory Muscle Use, Chest Non-Tender Cardiovascular: Normal Peripheral Pulses, Regular Rate, Rhythm, No Murmur Peripheral Pulses: 3+: Radial (L), Radial (R), Dorsalis Pedis (L), Dorsalis Pedis (R) GI/Abdominal: Normal Bowel Sounds, Soft, Non-Tender, No Distention, No Mass Extremities: Normal Inspection (of Left leg), Normal Range of Motion (of left leg), Non-Tender (Left leg), No Pedal Edema (of Left leg), Normal Capillary Refill (bilateral), Joint Swelling (R knee, 2+ non pitting, R ankle, 2+ non pitting), Limited Range of Motion (R knee and ankle), Increased Warmth (R knee) , Redness (R knee) Neurological: Alert, Oriented, Normal Cognition, No Motor/Sensory Deficits Psychiatric: Normal Affect, Normal Mood Skin Exam: Warm, Dry, Intact, No Rash, Erythema (R knee), Increased Warmth (R knee) Course - Vital Signs Last Recorded V/S: Last Vital Signs Temp 98.7 F 12/03/19 11:11 Pulse 82 12/03/19 11:11 Resp BP 147/90 H 12/03/19 11:11 Pulse Ox 96 12/03/19 11:11 - Orders/Labs/Meds Orders: Active Orders 24 hr Category Date Time Status Peripheral IV Care [RC] . DIRECTED Care 12/03/19 11:28 Active Sodium Chloride 0.9% [Saline Flush] Med 12/03/19 11:25 Active 10 ml FLUSH ASDIRECTED PRN Peripheral IV Insertion Adult [OM.PC] Stat Oth 12/03/19 11:24 Ordered Medication Orders Sodium Chloride (Saline Flush) 10 ml FLUSH ASDIRECTED PRN PRN Reason: Keep Vein Open Last Admin: 12/03/19 11:45 Dose: 10 ml Labs: Laboratory Tests 12/03/19 12/03/19 Range/Units 11:25 11:40 WBC 9.24 H (4.23-9.07) K/mm3 RBC 3.56 L (4.63-6.08) M/mm3 Hgb 11.1 L D (13.7-17.5) gm/dl Hct 34.6 L (40.1-51.0) % MCV 97.2 H (79.0-92.2) fl MCH 31.2 (25.7-32.2) pg MCHC 32.1 L (32.2-35.5) g/dl RDW Std Deviation 45.8 H (35.1-43.9) fL Plt Count 258 (163-337) K/mm3 MPV 9.1 L (9.4-12.3) fl Neutrophils % (Manual) 75 H (40-60) % Band Neutrophils % 0 (0-10) % Lymphocytes % (Manual) 14 L (20-40) % Atypical Lymphs % 0 % Monocytes % (Manual) 11 H (2-10) % Eosinophils % (Manual) 0 L (0.8-7.0) % Basophils % (Manual) 0 L (0.2-1.2) Platelet Estimate Adequate RBC Morph Comment Normal Sodium 133 L (136-145) mEq/L Potassium 4.3 (3.5-5.1) mEq/L Chloride 97 L (98-107) mEq/L Carbon Dioxide 27 (21-32) mEq/L Anion Gap 13.3 (5-15) BUN 20 H (7-18) mg/dL Creatinine 1.2 (0.7-1.3) mg/dL Est Cr Clr Drug Dosing 56.12 mL/min Estimated GFR (MDRD) > 60 (>60) mL/min BUN/Creatinine Ratio 16.7 (14-18) Glucose 126 H (80-115) mg/dL Calcium 8.6 (8.5-10.1) mg/dL Total Bilirubin 0.9 (0.2-1.0) mg/dL AST 33 (15-37) U/L ALT 41 (16-63) U/L Alkaline Phosphatase 101 (46-116) U/L Total Protein 7.2 (6.4-8.2) g/dl Albumin 2.9 L (3.4-5.0) g/dl Globulin 4.3 gm/dL Albumin/Globulin Ratio 0.7 L (1-2) Meds: Medications Generic Name Dose Route Start Last Admin Trade Name Freq PRN Reason Stop Dose Admin Sodium Chloride 10 ml 12/03/19 11:25 12/03/19 11:45 Saline Flush FLUSH 10 ml ASDIRECTED PRN Administration Keep Vein Open Discontinued Medications Generic Name Dose Route Start Last Admin Trade Name Freq PRN Reason Stop Dose Admin Hydromorphone HCl 1 mg 12/03/19 11:28 12/03/19 11:45 Dilaudid IVPUSH 12/03/19 11:29 1 mg ONETIME ONE Administration - Re-Assessments/Exams Free Text/Narrative Re-Assessment/Exam: 12/03/19 11:38 Patient presents to the ED for the evaluation of pain and swelling after a total knee replacement on Thursday. His right knee and ankle are markedly swollen as compared to the left leg. 2+ edema that is nonpitting is appreciated , patient is quite tender about the knee and also about the ankle. He has quite limited range of motion, due to the pain. I will get an ultrasound to evaluate for DVT, CBC and CMP, and some IV Dilaudid for pain management. 12/03/19 12:46 Ultrasound is done and demonstrates no sign of a DVT in his right lower leg. There is subcutaneous edema present. Patient will be instructed to use his ALBERTO hose as much as possible to help compress the tissues to help relieve some the swelling, he should ice the area and keep it as elevated as much as possible follow-up with his orthopod next week as previously directed. Departure - Departure Time of Disposition: 12:47 Disposition: Home, Self-Care 01 Condition: Fair Clinical Impression: Pain and swelling of right lower extremity, History of total right knee replacement - Discharge Information *PRESCRIPTION DRUG MONITORING PROGRAM REVIEWED*: No *COPY OF PRESCRIPTION DRUG MONITORING REPORT IN PATIENT BAKARI: No Instructions: Edema, [id number] Referrals: Ailyn Obrien PA-C [Primary Care Provider] - Forms: ED Department Discharge Additional Instructions: You have been evaluated in the ED for your right leg pain and swelling. Your US demonstrated no sign of DVT, did note however that there is quite a bit of swelling to the right leg. Please use ice as tolerated to the affected area. Please try to use her ALBERTO hose as much as possible to help compress the tissues and help relieve the swelling. Please take your previous pain medications as previously prescribed, also keep taking your Xarelto for DVT prophylaxis. You may take 2 tablets of the oxycodone every 4-6 hours for pain relief if 1 tablet is not providing you pain relief. Please keep your follow-up appointment with Dr. Hale's office this next week for further evaluation and follow-up. Please return to ED if your symptoms should change or worsen. Sepsis Event Note - Evaluation Sepsis Screening Result: No Definite Risk - Focused Exam Vital Signs: Vital Signs Temp Pulse BP Pulse Ox 12/03/19 11:11 98.7 F 82 147/90 H 96 Date Exam was Performed: 12/03/19 Time Exam was Performed: 12:46 - My Orders Last 24 Hours: My Active Orders 12/03/19 11:24 Peripheral IV Insertion Adult [OM.PC] Stat 12/03/19 11:25 Sodium Chloride 0.9% [Saline Flush] 10 ml FLUSH ASDIRECTED PRN 12/03/19 11:28 Peripheral IV Care [RC] . DIRECTED - Assessment/Plan Last 24 Hours: My Active Orders 12/03/19 11:24 Peripheral IV Insertion Adult [OM.PC] Stat 12/03/19 11:25 Sodium Chloride 0.9% [Saline Flush] 10 ml FLUSH ASDIRECTED PRN 12/03/19 11:28 Peripheral IV Care [RC] . DIRECTED
--- NOTE | 2019-12-03 12:41 | US ---
Right lower extremity deep venous ultrasound: Duplex and color Doppler imaging was obtained of the right common femoral, proximal greater saphenous, superficial femoral, popliteal, posterior tibial and peroneal veins. Left common femoral vein is also evaluated. Comparison: Previous bilateral venous ultrasound of 08/06/18. Findings: Normal phasic flow and augmentation is seen within the deep veins. Compression was less than optimally seen within the distal superficial femoral vein and popliteal vein due to subcutaneous edema. Lymph nodes are seen within the right inguinal region which are believed to be within normal limits. Impression: 1. No findings of deep venous thrombosis within the right lower extremity or within the left common femoral vein. 2. Subcutaneous edema is present. Diagnostic code #2 This report was dictated in [place] Standard Time
== END 2019-12-03 13:20 | disposition home or self-care (01) ==
LOC: JD.ED 11:00
DX: M25.561 Pain in right knee (principal); Z96.651 Presence of right artificial knee joint; I10 Essential (primary) hypertension; E78.00 Pure hypercholesterolemia, unspecified; E03.9 Hypothyroidism, unspecified; E66.9 Obesity, unspecified; Z79.82 Long term (current) use of aspirin; Z79.899 Other long term (current) drug therapy; Z87.891 Personal history of nicotine dependence
CPT/HCPCS: 36415; 80053; 85007; 85027; 93971; 96374; 99284; J1170; 99283

== ENCOUNTER 2023-03-23 08:51 | Day surgery (SDC) | payer MEDICARE, BC ==
[~2023-03-23 08:51] MED LIST changes: -Albuterol 0.083% 2.5 MG/3 ML Neb Soln NEB PRN; -EPINEPHrine 1 MG/ML SDV ONE; +Gabapentin 300 MG Cap PO SCH; -Ketorolac 30 MG/ML SDV ONE; +Lactated Ringers 1,000 ML IV SCH; -Lactated Ringers 1,000 ML ONE; -Lidocaine 1% 6 ML ONE; -Ondansetron 4 MG/2 ML SDV ONE; -Phenylephrine/Normal Saline 100 MCG/ML 10 ML Syringe ONE; -Pregabalin 25 MG Cap PO SCH; -Ropivacaine 0.5% 5 MG/ML 30 ML SDV ONE; +Sodium Chloride 0.9% 10 ML Syringe FLUSH SCH; -ceFAZolin 1 GM Vial ONE; -oxyCODONE ER 10 MG TAB.ER PO SCH
[2023-03-23] MEDS ORDERED: Lidocaine 1% with EPINEPHrine 1:100,000 20 ML MDV ONE (10:32)
[2023-03-23] MEDS ORDERED: Bupivacaine 0.5%/EPINEPHrine 1:200,000 50 ML MDV ONE (10:32)
[2023-03-23] MEDS ORDERED: Midazolam 1 MG/ML 2 ML SDV ONE (10:37)
[2023-03-23] MEDS ORDERED: fentaNYL 100 MCG/2 ML SDV ONE (10:37)
[2023-03-23] MEDS ORDERED: Propofol 200 MG/20 ML SDV ONE (10:37)
[2023-03-23] MEDS ORDERED: Rocuronium 50 MG/5 ML Vial ONE (10:38)
[2023-03-23] MEDS ORDERED: ceFAZolin 2 GM Vial ONE (10:38)
[2023-03-23] MEDS ORDERED: Lidocaine 1% 4 ML ONE (11:19)
[2023-03-23] MEDS ORDERED: ePHEDrine 50 MG/ML SDV ONE (12:34)
[2023-03-23] MEDS ORDERED: Dexamethasone 4 MG/ML 5 ML MDV ONE (14:30)
[2023-03-23] MEDS ORDERED: Ketorolac 30 MG/ML SDV ONE (14:30)
[2023-03-23] MEDS ORDERED: Ondansetron 4 MG/2 ML SDV ONE (14:31)
[2023-03-23] MEDS ORDERED: Ondansetron 4 MG/2 ML SDV IVPUSH PRN (14:51)
[2023-03-23] MEDS ORDERED: HYDROmorphone 0.5 MG/0.5 ML Syringe IVPUSH PRN (14:51)
[2023-03-23] MEDS ORDERED: fentaNYL 100 MCG/2 ML SDV IVPUSH PRN (14:51)
[2023-03-23] MEDS ORDERED: Acetaminophen/oxyCODONE 325-5 MG Tab PO PRN (15:16)
[2023-03-23 18:13] VITALS: BP 130/68; PULSE 70
== END 2023-03-23 17:50 | disposition home or self-care (01) ==
LOC: JD.SDS 08:51
PROVIDERS: ATTEND Surgery
DX: K40.20 Bilateral inguinal hernia, without obstruction or gangrene, not specified as recurrent (principal); D17.6 Benign lipomatous neoplasm of spermatic cord; I10 Essential (primary) hypertension; E78.2 Mixed hyperlipidemia; I73.9 Peripheral vascular disease, unspecified; E03.9 Hypothyroidism, unspecified; I25.810 Atherosclerosis of coronary artery bypass graft(s) without angina pectoris; M19.90 Unspecified osteoarthritis, unspecified site; E66.9 Obesity, unspecified; Z68.34 Body mass index [BMI] 34.0-34.9, adult; F17.210 Nicotine dependence, cigarettes, uncomplicated; Z90.49 Acquired absence of other specified parts of digestive tract; Z98.890 Other specified postprocedural states; Z79.82 Long term (current) use of aspirin; Z79.899 Other long term (current) drug therapy; Z79.890 Hormone replacement therapy; Z87.19 Personal history of other diseases of the digestive system
CPT/HCPCS: 49505; A9270; J0690; J1100; J1885; J2250; J2405; J2704; J3010; J3490; J7120

== ENCOUNTER 2023-12-02 06:15 | Day surgery (SDC) | payer MEDICARE, BC ==
[~2023-12-02 06:15] MED LIST changes: -Acetaminophen 325 MG Tab PO SCH; -Gabapentin 300 MG Cap PO SCH; -Lidocaine 1%/Sod Bicarbonate in NS 8.4% 1 ML Syringe IDERM PRN
[2023-12-02] MEDS ORDERED: Ropivacaine 0.5% 5 MG/ML 30 ML SDV ONE (06:47)
[2023-12-02] MEDS ORDERED: Dexamethasone 4 MG/ML 5 ML MDV ONE ×2 (06:50→08:18)
[2023-12-02] MEDS ORDERED: HYDROmorphone 0.5 MG/0.5 ML Syringe IVPUSH PRN (06:52)
[2023-12-02] MEDS ORDERED: Ondansetron 4 MG/2 ML SDV IVPUSH PRN (06:52)
[2023-12-02] MEDS ORDERED: fentaNYL 100 MCG/2 ML SDV IVPUSH PRN (06:52)
[2023-12-02] MEDS ORDERED: Tranexamic Acid 1,000 MG/10 ML Vial ONE (06:53)
[2023-12-02] MEDS ORDERED: Bupivacaine 0.25% 10 ML SDV ONE (06:53)
[2023-12-02] MEDS ORDERED: Vancomycin 1 GM SDV ONE (06:53)
[2023-12-02] MEDS ORDERED: Midazolam 1 MG/ML 2 ML SDV ONE (06:58)
[2023-12-02] MEDS ORDERED: fentaNYL 100 MCG/2 ML SDV ONE (06:58)
[2023-12-02] MEDS ORDERED: Propofol 200 MG/20 ML SDV ONE (07:15)
[2023-12-02] MEDS ORDERED: Phenylephrine 1% 10 MG/ML SDV ONE (07:16)
[2023-12-02] MEDS ORDERED: Rocuronium 50 MG/5 ML Vial ONE (07:16)
[2023-12-02] MEDS ORDERED: Sodium Chloride 0.9% 100 ML ONE (07:20)
[2023-12-02] MEDS ORDERED: ceFAZolin 2 GM Vial ONE (07:45)
[2023-12-02] MEDS ORDERED: ePHEDrine 50 MG/ML SDV ONE (08:12)
[2023-12-02] MEDS ORDERED: Ondansetron 4 MG/2 ML SDV ONE (08:18)
[2023-12-02] MEDS ORDERED: Sugammadex Sodium 200 MG/2 ML VIAL ONE (08:49)
[2023-12-02] MEDS ORDERED: Lactated Ringers 1,000 ML IV ONE (09:15)
[2023-12-02] MEDS ORDERED: oxyCODONE 5 MG Tab PO SCH (11:20)
[2023-12-02 12:04] VITALS: BP 126/82; PULSE 65
== END 2023-12-02 13:30 | disposition home or self-care (01) ==
LOC: JD.SDS 06:15
PROVIDERS: ATTEND Orthopaedic Surgery
DX: M12.811 Other specific arthropathies, not elsewhere classified, right shoulder (principal); M75.121 Complete rotator cuff tear or rupture of right shoulder, not specified as traumatic; I10 Essential (primary) hypertension; E78.00 Pure hypercholesterolemia, unspecified; I25.10 Atherosclerotic heart disease of native coronary artery without angina pectoris; E03.9 Hypothyroidism, unspecified; I65.22 Occlusion and stenosis of left carotid artery; M54.50 Low back pain, unspecified; Z79.899 Other long term (current) drug therapy
CPT/HCPCS: 23472; 76000; 97161; A9270; C1713; C1776; J0690; J1100; J2250; J2371; J2405; J2704; J2795; J3010; J3370; J3490; J7030; J7120; 01638; 64415

== ENCOUNTER 2024-12-25 11:19 | Emergency (ER) | payer MEDICARE, BC ==
[2024-12-25] MEDS ORDERED: Sodium Chloride 0.9% 10 ML Syringe FLUSH PRN (12:01)
[2024-12-25 12:23] LABS: BASOPHILS ABSOLUTE AUTO 0.1 K/mm3 (0.0-0.2); BASOPHILS PERCENT AUTO 0.7 % (0.0-1.0); EOSINOPHILS ABSOLUTE AUTO 0.4 K/mm3 (0.0-0.4); EOSINOPHILS PERCENT AUTO 4.8 % (0.0-6.0); HEMATOCRIT 37.2 % (42.0-52.0); HEMOGLOBIN 11.9 gm/dl (14.0-18.0); IMMATURE GRAN ABSOLUTE AUTO 0.03 K/mm3 (0.00-0.05); IMMATURE GRAN PERCENT AUTO 0.4 % (0.0-0.4); LYMPHOCYTES ABSOLUTE AUTO 1.7 K/mm3 (1.0-4.8); LYMPHOCYTES PERCENT AUTO 23.5 % (24.0-44.0); MEAN CORPUSCULAR HEMOGLOBIN 32.2 pg (28.0-32.0); MEAN CORPUSCULAR VOLUME 100.8 fl (83.0-99.0); MEAN PLATELET VOLUME 9.2 fl (9.4-12.4); MONOCYTES ABSOLUTE AUTO 0.6 K/mm3 (0.0-0.8); MONOCYTES PERCENT AUTO 8.3 % (0.0-8.0); NEUTROPHILS ABSOLUTE AUTO 4.5 K/mm3 (1.8-7.7); NEUTROPHILS PERCENT AUTO 62.3 % (41.0-71.0); PLATELET COUNT,PLT 387 K/mm3 (150-400); RED BLOOD CELL COUNT 3.69 M/mm3 (4.52-5.90); WHITE BLOOD CELL COUNT,WBC 7.22 K/mm3 (3.9-11.3)
[2024-12-25 12:50] LABS: A/G RATIO 0.7 (1-2); ALBUMIN 3.1 g/dl (3.4-5.0); ANION GAP 11.4 (5-15); BILIRUBIN TOTAL 0.5 mg/dL (0.2-1.0); BUN/CREATININE RATIO 13.8 (14-18); C-REACTIVE PROTEIN 1.09 mg/dL (<0.30); CALCIUM 8.9 mg/dL (8.5-10.1); CREATININE 1.3 mg/dL (0.7-1.3); EST CRCL DRUG DOSING (CG) 48.4 mL/min; POTASSIUM,K 4.4 mEq/L (3.5-5.1); PROTEIN TOTAL,TP 7.3 g/dl (6.4-8.2)
[2024-12-25] MEDS: Iopamidol 755 Mg/ML 100 ML Bottle IVPUSH ONE (13:32)
[2024-12-25] MEDS: Sodium Chloride 0.9% 10 ML Syringe FLUSH ONE (13:33)
[2024-12-25 16:00] VITALS: BP 143/80; PULSE 61
== END 2024-12-25 15:30 | disposition home or self-care (01) ==
LOC: JD.ED 11:19
DX: M96.842 Postprocedural seroma of a musculoskeletal structure following a musculoskeletal system procedure (principal); E78.00 Pure hypercholesterolemia, unspecified; I25.10 Atherosclerotic heart disease of native coronary artery without angina pectoris; I10 Essential (primary) hypertension; E03.9 Hypothyroidism, unspecified; Z95.1 Presence of aortocoronary bypass graft; Z79.890 Hormone replacement therapy; Z79.82 Long term (current) use of aspirin; Z79.899 Other long term (current) drug therapy
CPT/HCPCS: 36415; 72132; 80053; 85025; 86140; 99283; Q9967